=== PATIENT | male | born 1955 | race Caucasian/White ===

== ENCOUNTER 2016-05-01 19:17 | Observation (INO) | payer MEDICARE, MEDICAID ==
[~2016-05-01] VITALS: Ht 165.1 cm; Wt 101.6 kg
--- OUTSIDE RECORDS SUMMARY | 2016-05-01 19:21 | XMS REPORT | Continuity of Care Document ---
Author Author [facility] Organization [facility] Address Unknown Phone Unavailable Allergies Medications Problems [...] CHERRIE CROOKS MD Ot I10 05/28/2015 CHERRIE COROKS MD Ot R55 04/28/2016 CHERRIE CROOKS MD Ot E11.9 TYPE 2 DIABETES MELLITUS WITHOUT COMPLIC 04/28/2016 CHERRIE CROOKS MD Ot E66.9 OBESITY, UNSPECIFIED 04/28/2016 CHERRIE CROOKS MD Ot I10 ESSENTIAL (PRIMARY) HYPERTENSION 04/28/2016 CHERRIE CROOKS MD Ot R55 SYNCOPE AND COLLAPSE Procedures Results Encounters ACCT No. Visit Date/Time Discharge Status Pt. Type Provider Facility Loc./Unit Complaint [id number] 04/29/2016 07:50:00 ACT Outpatient THOMAS CROSS [facility] ONC [id number] 04/23/2015 10:17:00 ACT Outpatient CHERRIE CROOKS MD [facility] CARD SYNCOPE,HTN
--- NOTE | 2016-05-01 19:40 | ED General ---
General Stated Complaint: STOMACH PAIN;FEVER Source of Information: Patient (MOST INFORMATION IS FROM , PT IS DEAF, BUT CAN READ LIPS. ), Spouse Exam Limitations: Other (PT IS DEAF) History of Present Illness Time Seen by Provider: 19:24 Initial Comments PT ARRIVES VIA POV FROM HOME STATES THAT PT TOLD HER JUST PRIOR TO ARRIVAL THAT HE WAS HAVING LUQ PAIN, WAS ALSO NOTED TO HAVE FEVER OF 100.2 AT THAT TIME STATES HE LOOKS VERY PALE PT HAS HAD SIGNIFICANT ANEMIA OVER THE LAST MONTH AND HAS HAD 6 TRANSFUSIONS IN THE LAST MONTH. HAS BEEN TOLD THAT HIS SPLEEN IS VERY ENLARGED. WAS ADMITTED AT [place] IN THE LAST MONTH, HAD TRANSFUSIONS AND REFERRED TO DR. CROSS. COLONOSCOPY REPORTEDLY NEGATIVE. PT HAD A TRANSFUSION ON 04/28 --HGB 5.9, WBC 2.6, PLT 119,000 PRIOR TO TRANSFUSION ON 04/28/16, AND TRANSFUSED AGAIN ON 04/29 AND HAD A BONE MARROW BIOPSY DONE ON 04/29--RIGHT ILIAC CREST BY DR. CROSS. PATH REPORT REVIEWED AND DID NOT SHOW ANY ABNORMAL CELLS. NO NAUSEA/VOMITING NO CHEST PAIN OR SHORTNESS OF BREATH NO COUGH PCP: SIMONE, NESSA [place] HEMATOLOGY: DR. CROSS Allergies and Home Medications Allergies Coded Allergies: No Known Drug Allergies (Unverified , 05/01/16) Constitutional: see HPI fever EENTM: no symptoms reported Respiratory: no symptoms reported Cardiovascular: no symptoms reported Gastrointestinal: LUQ see HPI abdominal painNo loss of appetite, melenaNo nausea, No vomiting Genitourinary: no symptoms reported Musculoskeletal: no symptoms reported Skin: no symptoms reported Psychiatric/Neurological: No Symptoms Reported Hematologic/Lymphatic: See HPI Immunological/Allergic: no symptoms reported Past Psfumnh-Thtnyy-Atarqx Hx Patient Social History Alcohol Use: Denies Use Recreational Drug Use: No Smoking Status: Never a Smoker Recent Foreign Travel: No Contact w/Someone Who Travel: No Surgeries HX Surgeries: Yes (BONE MARROW BIOPSY 04/29/16; INGROWN TOENAIL REMOVALS; LITHOTRIPSY AND KIDNEY STONE REMOVAL; COLONOSCOPY 03/2016 AT [place]/DR. WHITNEY ) Surgeries: Gallbladder, Renal Respiratory Hx Respiratory Disorders: No Cardiovascular Hx Cardiac Disorders: Yes (NORMAL STRESS ECHO 04/2015) Cardiac Disorders: Hypertension Neurological Hx Neurological Disorders: No Genitourinary Hx Genitourinary Disorders: Yes Genitourinary Disorders: Kidney Stones Gastrointestinal Hx Gastrointestinal Disorders: No Musculoskeletal Hx Musculoskeletal Disorders: No Endocrine Hx Endocrine Disorders: Yes Endocrine Disorders: Hypothyroidsim, Diabetes, Non-Insulin dep HEENT HX ENT Disorders: Yes Hearing Impairment: Deaf Cancer Hx Cancer: No Psychosocial Hx Psychiatric Problems: No Integumentary HX Skin/Integumentary Disorder: No Blood Transfusions Hx Blood Disorders: Yes (ANEMIA) Family Medical History Significant Family History: Cancer (MOM WITH PANCREATIC CANCER) Physical Exam Vital Signs Vital Sign - Last 12Hours 05/01/16 19:38 Temp 98.6 Pulse 116 Resp 18 B/P 136/69 Pulse Ox 96 O2 Delivery Room Air Capillary Refill : General Appearance: No Apparent Distress WD/WN Obese HEENT: PERRL/EOMI Pale Conjunctivae (L) Pale Conjunctivae (R) Other (POOR DENTITION AND POOR ORAL HYGIENE) Neck: Full Range of Motion Normal Inspection Non Tender Supple Respiratory: Normal Breath Sounds No Accessory Muscle Use No Respiratory Distress Cardiovascular: Regular Rate, Rhythm No Edema No JVD No Murmur Normal Peripheral Pulses Gastrointestinal: Normal Bowel Sounds No Pulsatile Mass Soft Tenderness (LUQ. 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 Norm as Tested Skin: Warm/Dry Pallor Lymphatic: No Adenopathy Progress/Results/Core Measures Results/Orders Lab Results Laboratory Tests Test 05/01/16 19:38 Range/Units Activated Partial Thromboplast Time 33 24-35 SEC Alanine Aminotransferase (ALT/SGPT) 19 0-55 U/L Albumin 3.2 3.2-4.5 G/DL Alkaline Phosphatase 79 40-136 U/L Amylase Level 46 25-125 U/L Anion Gap 9 5-14 MMOL/L Aspartate Amino Transf (AST/SGOT) 27 5-34 U/L BUN/Creatinine Ratio 31 Basophils # (Auto) 0.0 0.0-0.1 10^3/uL Basophils (%) (Auto) 1 0-10 % Blood Urea Nitrogen 30 H 7-18 MG/DL Calcium Level 8.1 L 8.5-10.1 MG/DL Carbon Dioxide Level 21 21-32 MMOL/L Chloride Level 112 H 98-107 MMOL/L Creatinine 0.97 0.60-1.30 MG/DL Eosinophils # (Auto) 0.1 0.0-0.3 10^3/uL Eosinophils (%) (Auto) 3 0-10 % Estimat Glomerular Filtration Rate > 60 Glucose Level 127 H 70-105 MG/DL Hematocrit 22 L 40-54 % Hemoglobin 6.9 *L 13.3-17.7 G/DL INR Comment 1.2 0.8-1.4 Lactic Acid Level 1.3 0.5-2.0 MMOL/L Lipase 48 8-78 U/L Lymphocytes # (Auto) 0.7 L 1.0-4.0 X 10^3 Lymphocytes (%) (Auto) 24 12-44 % Mean Corpuscular Hemoglobin 28 25-34 PG Mean Corpuscular Hemoglobin Concent 31 L 32-36 G/DL Mean Corpuscular Volume 90 80-99 FL Mean Platelet Volume 9.9 7.4-10.4 FL Monocytes # (Auto) 0.2 0.0-1.0 X 10^3 Monocytes (%) (Auto) 8 0-12 % Neutrophils # (Auto) 1.8 1.8-7.8 X 10^3 Neutrophils (%) (Auto) 64 42-75 % Platelet Count 112 L 130-400 10^3/uL Potassium Level 4.5 3.6-5.0 MMOL/L Prothrombin Time 14.6 12.2-14.7 SEC Red Blood Count 2.44 L 4.35-5.85 10^6/uL Red Cell Distribution Width 15.1 H 10.0-14.5 % Sodium Level 142 135-145 MMOL/L Total Bilirubin 0.4 0.1-1.0 MG/DL Total Protein 6.5 6.4-8.2 G/DL Troponin I < 0.30 <0.30 NG/ML White Blood Count 2.8 L 4.3-11.0 10^3/uL Micro Results Microbiology 05/01/16 Influenza Types A,B Antigen (MARIEL) - Final, Complete My Orders Orders-BERLINSHERWIN YuenA K DO Saline Lock/Iv-Start (05/01/16 19:32) Monitor-Rhythm Ecg Trace Only (05/01/16 19:32) Amylase (05/01/16 19:32) Cbc With Automated Diff (05/01/16 19:32) Comprehensive Metabolic Panel (05/01/16 19:32) Lactic Acid Analyzer (05/01/16 19:32) Lipase (05/01/16 19:32) Protime With Inr (05/01/16 19:32) Partial Thromboplastin Time (05/01/16 19:32) Troponin I (05/01/16 19:32) Ua Culture If Indicated (05/01/16 19:32) Type And Screen (05/01/16 19:32) Blood Culture (05/01/16 19:32) Ct Angio Chst/Abd/Pelv W (05/01/16 20:27) Iohexol Injection (Omnipaque 350 Mg/Ml 1 (05/01/16 20:30) Ns (Ivpb) (Sodium Chloride 0.9% Ivpb Bag (05/01/16 20:30) Red Cells Leukocytes Reduced (05/01/16 20:57) Influenza A And B Antigens (05/01/16 21:40) Ceftriaxone Injection (Rocephin Injectio (05/01/16 21:45) Medications Given in ED Current Medications Medications Dose Ordered Sig/Steve Route Start Time Stop Time Status Last Admin Dose Admin Ceftriaxone Sodium/Sodium Chloride 50 ml @ 100 mls/hr ONCE ONCE IV 05/01/16 21:45 05/01/16 22:14 DC 05/01/16 21:55 100 MLS/HR Iohexol 150 ml ONCE ONCE IV 05/01/16 20:30 05/01/16 20:31 DC 05/01/16 20:50 125 ML Sodium Chloride 100 ml 100 ml ONCE ONCE IV 05/01/16 20:30 05/01/16 20:31 DC 05/01/16 20:50 80 ML Vital Signs/I&O Vital Sign - Last 12Hours 05/01/16 05/01/16 19:38 22:22 Temp 98.6 98.6 Pulse 116 106 Resp 18 18 B/P 136/69 Pulse Ox 96 96 O2 Delivery Room Air Progress Note : Progress Note NO DETERIORATION IN PTS' CONDITION DURING ER STAY Diagnostic Imaging Comments CT ANGIO CHEST/ ABDOMEN/ PELVIS--SPLENOMEGALY, FEW PROMINENT CELIAC NODES, FEW NON-SPECIFIC LESIONS IN LIVER. NO ACUTE INFLAMMATORY PROCESS OR INFARCTS---PER RADIOLOGIST REPORT AT 2126 Reviewed: Reviewed by Me Departure Communication Progress Notes 1930--SPOKE WITH DR. CROSS, ACCEPTS PT FOR ADMIT. ORDERS NOTED Impression Impression: Primary Impression: Pancytopenia Additional Impressions: LUQ pain Fever Melena CELIAC LYMPHADENOPATHY Splenomegaly NON-SPECIFIC LIVER LESIONS ON CT Disposition: ADMITTED INPATIENT Condition: Stable Decision to Admit Reason: Admit from ER (General) Decision to Admit/Date: May 01, 2016 Time/Decision to Admit Time: 19:30 Departure-Patient Inst. Referrals: [facility] (PCP) Primary Care Physician JESUS SLADE DO May 01, 2016 7:40 pm
[2016-05-01 19:50] LABS: BASOPHILS % (AUTO) 1 % (0-10); EOSINOPHILS # (AUTO) 0.1 10^3/uL (0.0-0.3); EOSINOPHILS % (AUTO) 3 % (0-10); LYMPHOCYTES # (AUTO) 0.7 X 10^3 (1.0-4.0); LYMPHOCYTES % (AUTO) 24 % (12-44); MEAN CORPUSCULAR HEMOGLOBIN 28 PG (25-34); MEAN CORPUSCULAR HGB CONC 31 G/DL (32-36); MEAN CORPUSCULAR VOLUME 90 FL (80-99); MEAN PLATELET VOLUME 9.9 FL (7.4-10.4); MONOCYTES # (AUTO) 0.2 X 10^3 (0.0-1.0); MONOCYTES % (AUTO) 8 % (0-12); NEUTROPHILS # (AUTO) 1.8 X 10^3 (1.8-7.8); NEUTROPHILS % (AUTO) 64 % (42-75); PLATELET COUNT 112 10^3/uL (130-400); RED BLOOD COUNT 2.44 10^6/uL (4.35-5.85); RED CELL DISTRIBUTION WIDTH 15.1 % (10.0-14.5); WHITE BLOOD COUNT 2.8 10^3/uL (4.3-11.0)
[2016-05-01 20:00] LABS: INR 1.2 (0.8-1.4); PROTHROMBIN TIME PATIENT 14.6 SEC (12.2-14.7)
[2016-05-01 20:11] LABS: ALANINE AMINOTRANSFERASE 19 U/L (0-55); ALBUMIN 3.2 G/DL (3.2-4.5); AMYLASE 46 U/L (25-125); ANION GAP 9 MMOL/L (5-14); ASPARTATE AMINO TRANSFERASE 27 U/L (5-34); BILIRUBIN,TOTAL 0.4 MG/DL (0.1-1.0); BLOOD UREA NITROGEN 30 MG/DL (7-18); BUN/CREATININE RATIO 31; CALCIUM 8.1 MG/DL (8.5-10.1); CARBON DIOXIDE 21 MMOL/L (21-32); CHLORIDE 112 MMOL/L (98-107); CREATININE SERUM 0.97 MG/DL (0.60-1.30); GFR ESTIMATED > 60; GLUCOSE 127 MG/DL (70-105); LIPASE 48 U/L (8-78); POTASSIUM 4.5 MMOL/L (3.6-5.0); SODIUM 142 MMOL/L (135-145); TOTAL PROTEIN 6.5 G/DL (6.4-8.2)
[2016-05-01 20:12] LABS: TROPONIN I < 0.30 NG/ML (<0.30)
[2016-05-01] MEDS ORDERED: IOHEXOL 350 MG/ML 150 ML (OMNIPAQUE 350) VIAL IV ONE (20:30)
[2016-05-01] MEDS ORDERED: NS 100 ML (IVPB) BAG IV ONE (20:30)
--- NOTE | 2016-05-01 21:22 | Diagnostic Imaging Report ---
PROCEDURE: CT angiography of the chest with contrast and CT abdomen and pelvis with contrast. TECHNIQUE: Multiple contiguous axial images were obtained through the chest, abdomen and pelvis after administration of intravenous contrast. Reconstructed MIP CT angiography acquisitions of the aorta were then performed. INDICATION: Fever, anemia, history of renal calculi. COMPARISON: None. FINDINGS: CT chest: Cardiac enlargement with coronary artery disease is present. There is no pericardial effusion. No lymphadenopathy is seen. Pulmonary arteries and aorta are unremarkable. No dissection or pulmonary embolism is identified. The lungs are clear throughout. There is no infiltrate, effusion or pneumothorax. There is a small hiatal hernia. Visualized osseous structures are age-appropriate. IMPRESSION: 1. No pulmonary embolism or aortic pathology. 2. No focal infiltrate. 3. Small hiatal hernia. 4. Cardiac enlargement with coronary artery disease. CT abdomen and pelvis: A few prominent celiac lymph nodes are present. There is moderate splenomegaly. No splenic rupture or infarction is seen. There is a single low-density lesion in the superior aspect of the right hepatic lobe, measuring 12 mm. The exact etiology is uncertain. Consider MRI for further evaluation. There is no abscess. Portal venous system and arterial structures are grossly normal. No vascular occlusion or stenosis is seen. There is no solid organ or bowel ischemia. No additional areas of lymphadenopathy are identified. There is some distention of the urinary bladder. Nonobstructive renal calculi are seen, bilaterally. There is no hydronephrosis. No inflammation is seen. Osseous structures are normal. There is no fracture, osteomyelitis or soft tissue abscess. IMPRESSION: 1. Prominent celiac nodes, possibly neoplastic. 2. Low-density liver lesions in the superior right hepatic lobe. Recommend MRI for further evaluation. 3. No abdominal or pelvic abscess or inflammatory process is identified. 4. Nonobstructive renal calculi. 5. Splenomegaly. Dictated by: Dictated on workstation # [id number]
[2016-05-01] MEDS ORDERED: cefTRIAXone INJECTION 1,000 MG in NS (IVPB) 50 ML IV ONE (21:45)
[2016-05-01 22:50] LABS: BILIRUBIN,URINE NEGATIVE (NEGATIVE); KETONES,URINE NEGATIVE (NEGATIVE); LEUKOCYTE ESTERASE ,URINE NEGATIVE (NEGATIVE); NITRITE,URINE NEGATIVE (NEGATIVE); PH,URINE 5 (5-9); PROTEIN,URINE 1+ (NEGATIVE); UROBILINOGEN,URINE 1 MG/DL (NORMAL)
[2016-05-01 23:07] LABS: SQUAMOUS EPITHELIAL CELL,UR 0-2 /HPF; WBC,URINE 0-2 /HPF
[2016-05-02] VITALS (8 sets, daily range): BP systolic 118–129; BP diastolic 60–79
[2016-05-02] MEDS ORDERED: NS IV 1000 ML 1,000 ML ONE (00:36)
[2016-05-02] MEDS ORDERED: NS (IVPB) 250 ML ONE (01:29)
[2016-05-02] MEDS ORDERED: CATHETER FLUSH 10 ML SYR IV PRN (07:15)
[2016-05-02] MEDS ORDERED: NS IV 1000 ML 1,000 ML IV SCH (07:15)
[2016-05-02] MEDS ORDERED: ACETAMINOPHEN 500 MG TAB (TYLENOL) PO PRN (07:15)
[2016-05-02] MEDS ORDERED: GLIM1TAB PO (08:36)
[2016-05-02] MEDS ORDERED: METF500T8 PO (08:36)
[2016-05-02] MEDS ORDERED: LISI-556 PO (08:36)
[2016-05-02] MEDS ORDERED: DICL75TA2 PO (08:36)
[2016-05-02] MEDS ORDERED: LEVO75TA6 PO (08:36)
[2016-05-02] MEDS ORDERED: PREG50CA2 PO (08:36)
[2016-05-02] MEDS ORDERED: cefTRIAXone 1 GM/NS 50 ML IVPB IV SCH ×4 (09:00→21:00)
[2016-05-02] MEDS ORDERED: FLU TRIvalent (5 YOA+) 2016-17 (AFLURIA) 0.5 ML IM ONE (09:45)
[2016-05-02 10:03] LABS: BASOPHILS % (AUTO) 0 % (0-10); EOSINOPHILS # (AUTO) 0.1 10^3/uL (0.0-0.3); EOSINOPHILS % (AUTO) 4 % (0-10); LYMPHOCYTES # (AUTO) 0.5 X 10^3 (1.0-4.0); LYMPHOCYTES % (AUTO) 17 % (12-44); MEAN CORPUSCULAR HEMOGLOBIN 29 PG (25-34); MEAN CORPUSCULAR HGB CONC 33 G/DL (32-36); MEAN CORPUSCULAR VOLUME 88 FL (80-99); MEAN PLATELET VOLUME 9.5 FL (7.4-10.4); MONOCYTES # (AUTO) 0.2 X 10^3 (0.0-1.0); MONOCYTES % (AUTO) 7 % (0-12); NEUTROPHILS % (AUTO) 72 % (42-75); PLATELET COUNT 120 10^3/uL (130-400); RED BLOOD COUNT 2.89 10^6/uL (4.35-5.85); RED CELL DISTRIBUTION WIDTH 15.7 % (10.0-14.5); WHITE BLOOD COUNT 2.7 10^3/uL (4.3-11.0)
[2016-05-02 10:17] LABS: ALANINE AMINOTRANSFERASE 23 U/L (0-55); ALBUMIN 3.4 G/DL (3.2-4.5); ANION GAP 7 MMOL/L (5-14); ASPARTATE AMINO TRANSFERASE 27 U/L (5-34); BILIRUBIN,TOTAL 1.2 MG/DL (0.1-1.0); BLOOD UREA NITROGEN 25 MG/DL (7-18); BUN/CREATININE RATIO 29; CALCIUM 8.3 MG/DL (8.5-10.1); CARBON DIOXIDE 21 MMOL/L (21-32); CHLORIDE 111 MMOL/L (98-107); CREATININE SERUM 0.86 MG/DL (0.60-1.30); GFR ESTIMATED > 60; GLUCOSE 119 MG/DL (70-105); POTASSIUM 4.3 MMOL/L (3.6-5.0); SODIUM 139 MMOL/L (135-145); TOTAL PROTEIN 6.8 G/DL (6.4-8.2)
--- NOTE | 2016-05-02 10:50 | Discharge Inst-Simple/Standard ---
Discharge Inst-Standard Discharge Medications New, Converted or Re-Newed RX: Other Patient Instructions/Follow Up Plan of Care/Instructions/FU: Labwork on 05/06/2016 at the cancer center as scheduled. F/u appointment on 05/13/2016 at the cancer center as scheduled. Dr. Castro's office will contact with instructions for capsule endoscopy. Activity as Tolerated: Yes Discharge Diet: ADA Diet Return to The Hospital For: Bleeding, SOB, Chest pain. THOMAS CROSS May 02, 2016 10:50
== END 2016-05-02 10:44 | disposition home or self-care (01) ==
LOC: EDUNIT# 19:17 → ER 19:18 → 4TH 22:12 → UNDOADMOB 22:12 → 4TH 23:00 → UNDODISOB 05-02 11:51
PROVIDERS: ADMIT Internal Medicine Hematology & Oncology; ATTEND Internal Medicine Hematology & Oncology
DX: D61.818 Other pancytopenia (principal); R16.1 Splenomegaly, not elsewhere classified; K92.1 Melena; R59.1 Generalized enlarged lymph nodes; K76.9 Liver disease, unspecified; I10 Essential (primary) hypertension; N20.0 Calculus of kidney; E03.9 Hypothyroidism, unspecified; E11.9 Type 2 diabetes mellitus without complications; H91.3 Deaf nonspeaking, not elsewhere classified
CPT/HCPCS: 36415; 71275; 74174; 80053; 81000; 82150; 83605; 83690; 84484; 85025; 85610; 85730; 86850; 86900; 86901; 86920; 87040; 87804; 93041; 96365; G0378

== ENCOUNTER → 2016-05-08 | Outpatient (CLI) | payer MEDICARE, MEDICAID ==
[~2016-05-08] MED LIST: DICL75TA2 PO; GLIM1TAB PO; LEVO75TA6 PO; LISI-556 PO; METF500T8 PO; PREG50CA2 PO
--- OUTSIDE RECORDS SUMMARY | 2016-05-08 10:02 | XMS REPORT | Continuity of Care Document ---
Author Author [facility] Organization [facility] Address Unknown Phone Unavailable Allergies Active Description Code Type Severity Reaction Onset Reported/Identified Relationship to Patient Clinical Status Yes No Known Drug Allergies [id number] Drug Allergy Unknown N/ A 05/01/2016 Medications Problems Date Dx Coded Attending Type [...] I10 05/28/2015 CHERRIE CROOKS MD Ot R55 04/28/2016 CHERRIE CROOKS MD Ot E11.9 TYPE 2 DIABETES MELLITUS WITHOUT COMPLIC 04/28/2016 CHERRIE CROOKS MD Ot E66.9 OBESITY, UNSPECIFIED 04/28/2016 CHERRIE CROOKS MD Ot I10 ESSENTIAL (PRIMARY) HYPERTENSION 04/28/2016 CHERRIE CROOKS MD Ot R55 SYNCOPE AND COLLAPSE 05/02/2016 THOMAS CROSS Ot D61.818 OTHER PANCYTOPENIA 05/02/2016 THOMAS CROSS Ot E03.9 HYPOTHYROIDISM, UNSPECIFIED 05/02/2016 THOMAS CROSS Ot E11.9 TYPE 2 DIABETES MELLITUS WITHOUT COMPLIC 05/02/2016 THOMAS CROSS Ot H91.3 DEAF NONSPEAKING, NOT ELSEWHERE CLASSIFI 05/02/2016 THOMAS CROSS Ot I10 ESSENTIAL (PRIMARY) HYPERTENSION 05/02/2016 THOMAS CROSS Ot K76.9 LIVER DISEASE, UNSPECIFIED 05/02/2016 THOMAS CROSS Ot K92.1 MELENA 05/02/2016 THOMAS CROSS Ot N20.0 CALCULUS OF KIDNEY 05/02/2016 THOMAS CROSS Ot R16.1 SPLENOMEGALY, NOT ELSEWHERE CLASSIFIED 05/02/2016 THOMAS CROSS Ot R59.1 GENERALIZED ENLARGED LYMPH NODES Procedures Results Test Result Range Complete blood count (CBC) with automated white blood cell (WBC) differential - 05/01/16 19:38 Blood leukocytes automated count (number/volume) 2.8 10*3/ uL 4.3-11.0 Blood erythrocytes automated count (number/volume) 2.44 10*6 /uL 4.35-5.85 Venous blood hemoglobin measurement (mass/volume) 6.9 g/dL 13.3-17.7 Blood hematocrit (volume fraction) 22 % 40-54 Automated erythrocyte mean corpuscular volume 90 [foz_us] 80-99 Automated erythrocyte mean corpuscular hemoglobin (mass per erythrocyte) 28 pg 25-34 Automated erythrocyte mean corpuscular hemoglobin concentration measurement ( mass/volume) 31 g/dL 32-36 Automated erythrocyte distribution width ratio 15.1 % 10.0-14.5 Automated blood platelet count (count/volume) 112 10*3/uL 130-400 Automated blood platelet mean volume measurement 9.9 [foz_us ] 7.4-10.4 Automated blood neutrophils/100 leukocytes 64 % 42-75 Automated blood lymphocytes/100 leukocytes 24 % 12-44 Blood monocytes/100 leukocytes 8 % 0-12 Automated blood eosinophils/100 leukocytes 3 % 0-10 Automated blood basophils/100 leukocytes 1 % 0-10 Blood neutrophils automated count (number/volume) 1.8 10*3 1.8-7.8 Blood lymphocytes automated count (number/volume) 0.7 10*3 1.0-4.0 Blood monocytes automated count (number/volume) 0.2 10*3 0.0-1.0 Automated eosinophil count 0.1 10*3/uL 0.0-0.3 Automated blood basophil count (count/volume) 0.0 10*3/uL 0.0-0.1 Blood lactic acid measurement (moles/volume) - 05/01/16 19:38 Blood lactic acid measurement (moles/volume) 1.3 mmol/L 0.5-2.0 PT panel in platelet poor plasma by coagulation assay - 05/01/16 19:38 Prothrombin time (PT) in platelet poor plasma by coagulation assay 14.6 s 12.2-14.7 INR in platelet poor plasma or blood by coagulation assay 1.2 0.8-1.4 Activated partial thromboplastin time (aPTT) in platelet poor plasma bycoagulation assay - 05/01/16 19:38 Activated partial thromboplastin time (aPTT) in platelet poor plasma bycoagulation assay 33 s 24-35 Comprehensive metabolic panel - 05/01/16 19:38 Serum or plasma sodium measurement (moles/volume) 142 mmol/ L 135-145 Serum or plasma potassium measurement (moles/volume) 4.5 mmol/L 3.6-5.0 Serum or plasma chloride measurement (moles/volume) 112 mmol /L 98-107 Carbon dioxide 21 mmol/L 21-32 Serum or plasma anion gap determination (moles/volume) 9 mmol/L 5-14 Serum or plasma urea nitrogen measurement (mass/volume) 30 mg/dL 7-18 Serum or plasma creatinine measurement (mass/volume) 0.97 mg /dL 0.60-1.30 Serum or plasma urea nitrogen/creatinine mass ratio 31 NRG Serum or plasma creatinine measurement with calculation of estimated glomerular filtration rate > NRG Serum or plasma glucose measurement (mass/volume) 127 mg/dL 70-105 Serum or plasma calcium measurement (mass/volume) 8.1 mg/dL 8.5-10.1 Serum or plasma total bilirubin measurement (mass/volume) 0.4 mg/dL 0.1-1.0 Serum or plasma alkaline phosphatase measurement (enzymatic activity/volume) 79 U/L 40-136 Serum or plasma aspartate aminotransferase measurement (enzymatic activity/ volume) 27 U/L 5-34 Serum or plasma alanine aminotransferase measurement (enzymatic activity/volume ) 19 U/L 0-55 Serum or plasma protein measurement (mass/volume) 6.5 g/dL 6.4-8.2 Serum or plasma albumin measurement (mass/volume) 3.2 g/dL 3.2-4.5 Serum or plasma troponin i.cardiac measurement (mass/volume) - 05/01/16 19:38 Serum or plasma troponin i.cardiac measurement (mass/volume) < ng/mL <0.30 Serum or plasma amylase measurement (enzymatic activity/volume) - 05/01/16 19: 38 Serum or plasma amylase measurement (enzymatic activity/volume) 46 U/L 25-125 Lipase - 05/01/16 19:38 Lipase 48 U/L 8-78 RED CELLS LEUKO REDUCED AS1 - 05/01/16 19:38 RED CELLS LEUKO REDUCED AS1 TRANSFUSED 0501 NRG Blood type T Indirect antibody screen panel - 05/01/16 19:38 ABO+Rh group AP NRG Transfusion band number [id number] NRG Blood group antibody screen NEGATIVE NRG Bacterial blood culture - 05/01/16 19:38 Bacterial blood culture NG NRG Bacterial blood culture - 05/01/16 19:56 Bacterial blood culture NG NRG Influenza virus A and B antigen detection - 05/01/16 21:51 FLU RESULT NEGATIVE FOR INFLUENZA A AND B ANTIGENS BY IA NRG Complete urinalysis with reflex to culture - 05/01/16 22:39 Urine color determination YELLOW NRG Urine clarity determination CLEAR NRG Urine pH measurement by test strip 5 5- 9 Specific gravity of urine by test strip 1.010 1.016-1.022 Urine protein assay by test strip, semi-quantitative 1+ NEGATIVE Urine glucose detection by automated test strip NEGATIVE NEGATIVE Erythrocytes detection in urine sediment by light microscopy 3+ NEGATIVE Urine ketones detection by automated test strip NEGATIVE NEGATIVE Urine nitrite detection by test strip NEGATIVE NEGATIVE Urine total bilirubin detection by test strip NEGATIVE NEGATIVE Urine urobilinogen measurement by automated test strip (mass/volume) 1 mg/dL NORMAL Urine leukocyte esterase detection by dipstick NEGATIVE NEGATIVE Automated urine sediment erythrocyte count by microscopy (number/high power field) [HPF] NRG Automated urine sediment leukocyte count by microscopy (number/high power field ) [HPF] NRG Bacteria detection in urine sediment by light microscopy NEGATIVE NRG Squamous epithelial cells detection in urine sediment by light microscopy 0-2 NRG Crystals detection in urine sediment by light microscopy NONE NRG Casts detection in urine sediment by light microscopy NONE NRG Mucus detection in urine sediment by light microscopy NEGATIVE NRG Complete urinalysis with reflex to culture NO NRG Complete blood count (CBC) with automated white blood cell (WBC) differential - 05/02/16 09:52 Blood leukocytes automated count (number/volume) 2.7 10*3/ uL 4.3-11.0 Blood erythrocytes automated count (number/volume) 2.89 10*6 /uL 4.35-5.85 Venous blood hemoglobin measurement (mass/volume) 8.3 g/dL 13.3-17.7 Blood hematocrit (volume fraction) 26 % 40-54 Automated erythrocyte mean corpuscular volume 88 [foz_us] 80-99 Automated erythrocyte mean corpuscular hemoglobin (mass per erythrocyte) 29 pg 25-34 Automated erythrocyte mean corpuscular hemoglobin concentration measurement ( mass/volume) 33 g/dL 32-36 Automated erythrocyte distribution width ratio 15.7 % 10.0-14.5 Automated blood platelet count (count/volume) 120 10*3/uL 130-400 Automated blood platelet mean volume measurement 9.5 [foz_us ] 7.4-10.4 Automated blood neutrophils/100 leukocytes 72 % 42-75 Automated blood lymphocytes/100 leukocytes 17 % 12-44 Blood monocytes/100 leukocytes 7 % 0-12 Automated blood eosinophils/100 leukocytes 4 % 0-10 Automated blood basophils/100 leukocytes 0 % 0-10 Blood neutrophils automated count (number/volume) 2.0 10*3 1.8-7.8 Blood lymphocytes automated count (number/volume) 0.5 10*3 1.0-4.0 Blood monocytes automated count (number/volume) 0.2 10*3 0.0-1.0 Automated eosinophil count 0.1 10*3/uL 0.0-0.3 Automated blood basophil count (count/volume) 0.0 10*3/uL 0.0-0.1 Comprehensive metabolic panel - 05/02/16 09:52 Serum or plasma sodium measurement (moles/volume) 139 mmol/ L 135-145 Serum or plasma potassium measurement (moles/volume) 4.3 mmol/L 3.6-5.0 Serum or plasma chloride measurement (moles/volume) 111 mmol /L 98-107 Carbon dioxide 21 mmol/L 21-32 Serum or plasma anion gap determination (moles/volume) 7 mmol/L 5-14 Serum or plasma urea nitrogen measurement (mass/volume) 25 mg/dL 7-18 Serum or plasma creatinine measurement (mass/volume) 0.86 mg /dL 0.60-1.30 Serum or plasma urea nitrogen/creatinine mass ratio 29 NRG Serum or plasma creatinine measurement with calculation of estimated glomerular filtration rate > NRG Serum or plasma glucose measurement (mass/volume) 119 mg/dL 70-105 Serum or plasma calcium measurement (mass/volume) 8.3 mg/dL 8.5-10.1 Serum or plasma total bilirubin measurement (mass/volume) 1.2 mg/dL 0.1-1.0 Serum or plasma alkaline phosphatase measurement (enzymatic activity/volume) 81 U/L 40-136 Serum or plasma aspartate aminotransferase measurement (enzymatic activity/ volume) 27 U/L 5-34 Serum or plasma alanine aminotransferase measurement (enzymatic activity/volume ) 23 U/L 0-55 Serum or plasma protein measurement (mass/volume) 6.8 g/dL 6.4-8.2 Serum or plasma albumin measurement (mass/volume) 3.4 g/dL 3.2-4.5 Encounters ACCT No. Visit Date/Time Discharge Status Pt. Type Provider Facility Loc./Unit Complaint [id number] 05/01/2016 22:12:00 2016 11:51:00 DIS Outpatient THOMAS CROSS [facility] 4TH PACYTOPENIA,SPLENOMEGALY WITH LUQ PAIN, MELENA [id number] 05/06/2016 07:42:00 ACT Outpatient THOMAS CROSS [facility] ONC [id number] 04/23/2015 10:17:00 ACT Outpatient VALERIY ROSENTHAL, CHERRIE Johnson [facility] CARD SYNCOPE,HTN
== END ==
LOC: PREOP 09:59
PROVIDERS: ATTEND Surgery
DX: Z01.818 Encounter for other preprocedural examination (principal); D50.0 Iron deficiency anemia secondary to blood loss (chronic)

== ENCOUNTER → 2016-05-13 | Day surgery (SDC) | payer MEDICARE, MEDICAID ==
--- OUTSIDE RECORDS SUMMARY | 2016-05-12 07:18 | XMS REPORT | Continuity of Care Document ---
Author Author [facility] Organization [facility] Address Unknown Phone Unavailable Allergies Active Description Code Type Severity Reaction Onset Reported/Identified Relationship to Patient Clinical Status Yes No Known Drug Allergies [id number] Drug Allergy Unknown N/ A 05/01/2016 Medications Problems Date Dx Coded Attending Type Code Diagnosis Diagnosed By 05/16/2015 CHERRIE CROOKS MD Ot E11.9 05/16/2015 CHERRIE CROOKS MD Ot E66.9 05/16/2015 CHERRIE CROOKS MD Ot I10 05/16/2015 CHERREI CROOKS MD Ot R55 05/28/2015 CHERRIE CROOKS [...] CROSS Ot R59.1 GENERALIZED ENLARGED LYMPH NODES 05/09/2016 NAKUL ROSENTHAL, ARTEMIO Larios Ot D50.0 IRON DEFICIENCY ANEMIA SECONDARY TO BLOO 05/09/2016 NAKUL ROSENTHAL, ARTEMIO Larios Ot Z01.818 ENCOUNTER FOR OTHER PREPROCEDURAL EXAMIN Procedures Results Test Result Range Complete blood [...] ABO+Rh group AP NRG Transfusion band number [id number] NRG Blood group antibody screen NEGATIVE NRG [...] Status Pt. Type Provider Facility Loc./Unit Complaint [id number] 05/01/2016 22:12:00 2016 11:51:00 DIS Outpatient THOMAS CROSS [facility] 4TH PACYTOPENIA,SPLENOMEGALY WITH LUQ PAIN, MELENA [id number] 05/12/2016 07:12:00 ACT Outpatient ARTEMIO MOTA MD [facility] ENDO IRON DEF. ANEMIA [id number] 05/08/2016 09:59:00 ACT Outpatient ARTEMIO MOTA MD [facility] PREOP IRON DEF. ANEMIA [id number] 05/06/2016 07:42:00 ACT Outpatient THOMAS CROSS [facility] ONC [id number] 04/23/2015 10:17:00 ACT Outpatient CHERRIE CROOKS MD [facility] CARD SYNCOPE,HTN
--- OUTSIDE RECORDS SUMMARY | 2016-05-12 07:18 | XMS REPORT | Continuity of Care Document ---
Author Author [facility] Organization [facility] Address Unknown Phone Unavailable Allergies Active Description Code Type Severity Reaction Onset Reported/Identified Relationship to Patient Clinical Status Yes No Known Drug Allergies [id number] Drug Allergy Unknown N/ A 05/01/2016 Medications [...] ABO+Rh group AP NRG Transfusion band number [id number] NRG Blood group antibody screen NEGATIVE NRG [...] Status Pt. Type Provider Facility Loc./Unit Complaint [id number] 05/01/2016 22:12:00 2016 11:51:00 DIS Outpatient THOMAS CROSS [facility] 4TH PACYTOPENIA,SPLENOMEGALY WITH LUQ PAIN, MELENA [id number] 05/12/2016 07:12:00 ACT Outpatient ARTEMIO MOTA MD [facility] ENDO IRON DEF. ANEMIA [id number] 05/08/2016 09:59:00 ACT Outpatient ARTEMIO MOTA MD [facility] PREOP IRON DEF. ANEMIA [id number] 05/06/2016 07:42:00 ACT Outpatient THOMAS CROSS [facility] ONC [id number] 04/23/2015 10:17:00 ACT Outpatient CHERRIE CROOKS MD [facility] CARD SYNCOPE,HTN
[~2016-05-13] VITALS: Ht 165.1 cm; Wt 99.8 kg
--- OUTSIDE RECORDS SUMMARY | 2016-05-13 07:25 | XMS REPORT | Continuity of Care Document ---
Author Author [facility] Organization [facility] Address Unknown Phone Unavailable Allergies Active Description Code Type Severity Reaction Onset Reported/Identified Relationship to Patient Clinical Status Yes No Known Drug Allergies [id number] Drug Allergy Unknown N/ A 05/01/2016 Medications Problems Date Dx Coded Attending Type Code Diagnosis Diagnosed By 05/16/2015 CHERRIE CROOKS MD Ot E11.9 05/16/2015 CHERRIE CROOKS MD Ot E66.9 05/16/2015 CHERRIE CROOKS MD Ot I10 05/16/2015 CHERRIE CROOKS MD Ot R55 05/28/2015 CHERRIE CROOKS MD Ot E11.9 05/28/2015 CHERRIE CROOKS MD Ot E66.9 05/28/2015 CHERRIE CROOKS MD Ot I10 05/28/2015 CHERREI CROOKS MD Ot R55 05/28/2015 CHERRIE [...] Ot Z01.818 ENCOUNTER FOR OTHER PREPROCEDURAL EXAMIN 05/12/2016 ARTEMIO MOTA MD, Ot D50.0 IRON DEFICIENCY ANEMIA SECONDARY TO BLOO 05/12/2016 NAKUL ROSENTHAL, ARTEMIO Larios Ot Z01.818 ENCOUNTER [...] RED CELLS LEUKO REDUCED AS1 TRANSFUSED 0501 [facility] Blood type T Indirect antibody screen panel - 05/01/16 19:38 ABO+Rh group AP NR Transfusion band number [id number] [facility] Blood group antibody screen NEGATIVE NR Bacterial blood culture - 05/01/16 19:38 Bacterial blood culture NG NRG Bacterial blood culture - 05/01/16 19:56 Bacterial blood culture NG [facility] Influenza virus A and B antigen detection - 05/01/16 21:51 FLU RESULT NEGATIVE FOR INFLUENZA A AND B ANTIGENS BY IA NR Complete urinalysis with reflex to culture - [...] count by microscopy (number/high power field) [HPF] [facility] Automated urine sediment leukocyte count by microscopy [...] Status Pt. Type Provider Facility Loc./Unit Complaint [id number] 05/12/2016 07:00:00 2016 07:00:00 CAN Preadmit ARTEMIO MOTA MD [facility] ENDO IRON DEF. ANEMIA [id number] 05/01/2016 22:12:00 2016 11:51:00 DIS Outpatient THOMAS CROSS [facility] 4TH PACYTOPENIA,SPLENOMEGALY WITH LUQ PAIN, MELENA [id number] 05/08/2016 09:59:00 ACT Outpatient ARTEMIO MOTA MD [facility] PREOP IRON DEF. ANEMIA [id number] 05/06/2016 07:42:00 ACT Outpatient THOMAS CROSS [facility] ONC [id number] 04/23/2015 10:17:00 ACT Outpatient VALERIY ROSENTHAL, CHERRIE Johnson [facility] CARD SYNCOPE,HTN
--- OUTSIDE RECORDS SUMMARY | 2016-05-13 07:26 | XMS REPORT | Continuity of Care Document ---
Author Author [facility] Organization [facility] Address Unknown Phone Unavailable Allergies Active Description Code Type Severity Reaction Onset Reported/Identified Relationship to Patient Clinical Status Yes No Known Drug Allergies [id number] Drug Allergy Unknown N/ A 05/01/2016 Medications [...] RED CELLS LEUKO REDUCED AS1 TRANSFUSED 0501 [facility] Blood type T Indirect antibody screen panel - 05/01/16 19:38 ABO+Rh group AP NR Transfusion band number [id number] [facility] Blood group antibody screen NEGATIVE NR Bacterial blood culture - 05/01/16 19:38 Bacterial blood culture NG NRG Bacterial blood culture - 05/01/16 19:56 Bacterial blood culture NG [facility] Influenza virus A and B antigen detection [...] count by microscopy (number/high power field) [HPF] [facility] Automated urine sediment leukocyte count by microscopy [...] Status Pt. Type Provider Facility Loc./Unit Complaint [id number] 05/12/2016 07:00:00 2016 07:00:00 CAN Preadmit ARTEMIO MOTA MD [facility] ENDO IRON DEF. ANEMIA [id number] 05/01/2016 22:12:00 2016 11:51:00 DIS Outpatient THOMAS CROSS [facility] 4TH PACYTOPENIA,SPLENOMEGALY WITH LUQ PAIN, MELENA [id number] 05/08/2016 09:59:00 ACT Outpatient ARTEMIO MOTA MD [facility] PREOP IRON DEF. ANEMIA [id number] 05/06/2016 07:42:00 ACT Outpatient THOMAS CROSS [facility] ONC [id number] 04/23/2015 10:17:00 ACT Outpatient VALERIY ROSENTHAL, CHERRIE Johnson [facility] CARD SYNCOPE,HTN
[2016-05-14 12:45] VITALS: BP 132/68
== END | disposition home or self-care (01) ==
LOC: ENDO 05-12 07:12
PROVIDERS: ATTEND Surgery
DX: D50.9 Iron deficiency anemia, unspecified (principal)
CPT/HCPCS: 91110

== ENCOUNTER → 2016-05-29 | Outpatient (CLI) | payer MEDICARE, MEDICAID ==
--- OUTSIDE RECORDS SUMMARY | 2016-05-29 05:55 | XMS REPORT | Continuity of Care Document ---
Author Author [facility] Organization [facility] Address Unknown Phone Unavailable Allergies Active Description Code Type Severity Reaction Onset Reported/Identified Relationship to Patient Clinical Status Yes No Known Drug Allergies [id number] Drug Allergy Unknown N/ A 05/01/2016 Medications [...] ABO+Rh group AP NRG Transfusion band number [id number] NRG Blood group antibody screen NEGATIVE NRG [...] Status Pt. Type Provider Facility Loc./Unit Complaint [id number] 05/01/2016 22:12:00 2016 11:51:00 DIS Inpatient THOMAS CROSS [facility] 4TH PACYTOPENIA,SPLENOMEGALY WITH LUQ PAIN, MELENA [id number] 05/29/2016 05:52:00 ACT Outpatient ARTEMIO MOTA MD [facility] PREOP ANEMIA [id number] 05/27/2016 13:45:00 ACT Outpatient RILEY YIP APRN [facility] WOUNDCARE [id number] 05/26/2016 09:16:00 ACT Outpatient THOMAS CROSS [facility] ONC [id number] 05/13/2016 07:22:00 ACT Outpatient ARTEMIO MOTA MD [facility] ENDO IRON DEF. ANEMIA [id number] 05/08/2016 09:59:00 ACT Outpatient ARTEMIO MOTA MD [facility] PREOP IRON DEF. ANEMIA [id number] 04/23/2015 10:17:00 ACT Outpatient CHERRIE CROOKS MD [facility] CARD SYNCOPE,HTN
== END ==
LOC: PREOP 05:52
PROVIDERS: ATTEND Surgery
DX: Z01.818 Encounter for other preprocedural examination (principal); D50.9 Iron deficiency anemia, unspecified; K29.70 Gastritis, unspecified, without bleeding

== ENCOUNTER 2016-06-02 10:29 | Day surgery (SDC) | payer MEDICARE, MEDICAID ==
[~2016-06-02] VITALS: Ht 165.1 cm; Wt 99.8 kg
--- OUTSIDE RECORDS SUMMARY | 2016-06-02 10:33 | XMS REPORT | Continuity of Care Document ---
Author Author [facility] Organization [facility] Address Unknown Phone Unavailable Allergies Active Description Code Type Severity Reaction Onset Reported/Identified Relationship to Patient Clinical Status Yes No Known Drug Allergies [id number] Drug Allergy Unknown N/ A 05/01/2016 Medications Problems Date Dx Coded Attending Type Code Diagnosis Diagnosed By 05/16/2015 CHERREI CROOKS MD Ot E11.9 05/16/2015 CHERRIE CROOKS MD Ot E66.9 05/16/2015 CHERRIE CROOKS MD Ot I10 05/16/2015 CHERRIE CROOKS MD Ot R55 05/28/2015 CHERRIE CROOKS MD Ot E11.9 05/28/2015 CHERRIE CROOKS MD Ot E66.9 05/28/2015 CHERRIE CROOKS MD Ot I10 05/28/2015 CHERRIE CROOKS MD Ot R55 05/28/2015 CHERRIE CROOKS MD Ot E11.9 05/28/2015 CHERRIE COROKS MD Ot E66.9 05/28/2015 CHERRIE CROOKS MD [...] ABO+Rh group AP NRG Transfusion band number [id number] NRG Blood group antibody screen NEGATIVE NRG [...] Status Pt. Type Provider Facility Loc./Unit Complaint [id number] 05/01/2016 22:12:00 2016 11:51:00 DIS Inpatient THOMAS CROSS [facility] 4TH PACYTOPENIA,SPLENOMEGALY WITH LUQ PAIN, MELENA [id number] 05/29/2016 05:52:00 ACT Outpatient ARTEMIO MOTA MD [facility] PREOP ANEMIA [id number] 05/27/2016 13:45:00 ACT Outpatient RILEY YIP APRN [facility] WOUNDCARE [id number] 05/26/2016 09:16:00 ACT Outpatient THOMAS CROSS [facility] ONC [id number] 05/13/2016 07:22:00 ACT Outpatient ARTEMIO MOTA MD [facility] ENDO IRON DEF. ANEMIA [id number] 05/08/2016 09:59:00 ACT Outpatient ARTEMIO MOTA MD [facility] PREOP IRON DEF. ANEMIA [id number] 04/23/2015 10:17:00 ACT Outpatient CHERRIE CROOKS MD [facility] CARD SYNCOPE,HTN
--- OUTSIDE RECORDS SUMMARY | 2016-06-02 10:36 | XMS REPORT | Continuity of Care Document ---
Author Author [facility] Organization [facility] Address Unknown Phone Unavailable Allergies Active Description Code Type Severity Reaction Onset Reported/Identified Relationship to Patient Clinical Status Yes No Known Drug Allergies [id number] Drug Allergy Unknown N/ A 05/01/2016 Medications [...] ABO+Rh group AP NRG Transfusion band number [id number] NRG Blood group antibody screen NEGATIVE NRG [...] Status Pt. Type Provider Facility Loc./Unit Complaint [id number] 05/01/2016 22:12:00 2016 11:51:00 DIS Inpatient THOMAS CROSS [facility] 4TH PACYTOPENIA,SPLENOMEGALY WITH LUQ PAIN, MELENA [id number] 05/29/2016 05:52:00 ACT Outpatient ARTEMIO MOTA MD [facility] PREOP ANEMIA [id number] 05/27/2016 13:45:00 ACT Outpatient RILEY YIP APRN [facility] WOUNDCARE [id number] 05/26/2016 09:16:00 ACT Outpatient THOMAS CROSS [facility] ONC [id number] 05/13/2016 07:22:00 ACT Outpatient ARTEMIO MOTA MD [facility] ENDO IRON DEF. ANEMIA [id number] 05/08/2016 09:59:00 ACT Outpatient ARTEMIO MOTA MD [facility] PREOP IRON DEF. ANEMIA [id number] 04/23/2015 10:17:00 ACT Outpatient CHERRIE CROOKS MD [facility] CARD SYNCOPE,HTN
[2016-06-02] MEDS ORDERED: NALOXONE 0.4 MG/ML 1 ML (NARCAN) VIAL IVP PRN (10:45)
[2016-06-02] MEDS ORDERED: NS IV 500 ML 500 ML IV ONE (10:45)
[2016-06-02] MEDS ORDERED: FLUMAZENIL (ROMAZICON) 0.1 MG/ML 5 ML VIAL INJ PRN (10:45)
--- NOTE | 2016-06-02 11:01 | Pre-Op Note & Conscious Sedat ---
Pre-Operative Progress Note H&P Reviewed The H&P was reviewed, patient examined and no changes noted. Date H&P Reviewed: Jun 02, 2016 Time H&P Reviewed: 10:41 Pre-Op Diagnosis: Iron deficiency anemia. Gastric erosions Conscious Sedation Pre-Proced ASA Class: 3 Airway Mallampati Classification: ([place] appropriate class) I. II. III, IV Lungs Heart ASA score ASA 1: a normal healthy patient ASA 2: a patient with a mild systemic disease (mid diabetes, controlled hypertension, obesity ASA 3: a patient with a severe systemic disease that limits activity (angina , COPD, prior Myocardial infarction) ASA 4: a patient with an incapacitating disease that is a constant threat to life (CHF, renal failure) ASA 5: a moribund patient not expected to survive 24 hrs. (ruptured aneurysm) ASA 6: a declared brain patient whose organs are being harvested. For emergent operations, add the letter E after the classification Grade 2 Sedation Plan: Discussed options with patient/fam Note The patient is an appropriate candidate to undergo the planned procedure, sedation, and anesthesia. The patient immediately re-assessed prior to indication. ARTEMIO MOTA MD Jun 02, 2016 11:01 am
[2016-06-02 11:15] VITALS: BP 123/56
[2016-06-02] MEDS ORDERED: fentaNYL INJECTION 100 MCG/2 ML AMP ONE (11:59)
[2016-06-02] MEDS ORDERED: MIDAZOLAM 2 MG/2 ML (VERSED) VIAL ONE ×2 (12:00)
[2016-06-02] MEDS ORDERED: HURRICAINE EXT TUBE (BENZOCAINE) ONE (12:00)
[2016-06-02] MEDS: fentaNYL INJECTION 100 MCG/2 ML AMP IVP PRN ×2 (12:12→12:16)
[2016-06-02] MEDS: MIDAZOLAM 2 MG/2 ML (VERSED) VIAL IVP PRN ×2 (12:14→12:18)
--- NOTE | 2016-06-02 12:29 | Progress Note-Post Operative ---
Post-Operative Progess Note Pre-Operative Diagnosis Iron deficiency anemia. Gastric erosions Post-Operative Diagnosis grade 2 esophagitis. Petechia in the distal stomach Post-Op Procedure Note Date of Procedure: Jun 02, 2016 Name of Procedure: EGD with GE junction biopsy Anesthesia Type sedation Specimen(s) collected mucosa of gastroesophageal junction ARTEMIO MOTA MD Jun 02, 2016 12:29
--- NOTE | 2016-06-02 12:31 | Discharge Inst-Simple/Standard ---
Discharge Inst-Standard Discharge Medications New, Converted or Re-Newed RX: Other Patient Instructions/Follow Up Plan of Care/Instructions/FU: we shall call him regarding further recommendations Activity as Tolerated: Yes Discharge Diet: ADA Diet ARTEMIO MOTA MD Jun 02, 2016 12:31
[2016-06-02 13:10] VITALS: BP 100/55
[2016-06-02 13:45] VITALS: BP 114/75
[2016-06-02 14:15] VITALS: BP 114/75
[2016-06-02 14:20] LABS: CREATININE SERUM 0.87 MG/DL (0.60-1.30)
--- NOTE | 2016-06-03 10:05 | PROCEDURE REPORT ---
PROCEDURE PHYSICIAN: ARTEMIO MOTA DATE OF PROCEDURE: 06/02/2016 PROCEDURE: Upper GI endoscopy with biopsy of deep gastroesophageal junction. SURGEON: Darci INDICATION FOR THE PROCEDURE: This gentleman is being evaluated for ongoing pancytopenia with severe iron deficiency anemia, requiring blood transfusions. Colonoscopy performed by Dr. Martinez at [facility] was negative. Upper endoscopy showed some gastric erosions. Capsule endoscopy was negative for any sinister lesions. Therefore, he returned for repeat upper endoscopy to reassess the gastric abnormality. Informed consent was obtained after reviewing the procedure in detail. DESCRIPTION OF PROCEDURE: He was placed in left lateral decubitus position and his vital signs were monitored. Conscious sedation was achieved using Versed and fentanyl. The flexible gastroscope was introduced down the esophagus, past the stomach, into the proximal duodenum. FINDINGS: ESOPHAGUS: Hiatal hernia with grade II esophagitis. Biopsy of gastroesophageal junction was performed to rule out Newton's changes. STOMACH: A few petechiae without any active bleeding were found along the distal stomach. DUODENUM: Normal. He tolerated the procedure well and was taken back to the nursing area in a stable condition. IMPRESSION: Ongoing iron deficiency anemia. No definitive source identified so far. Job ID: [id number] Dictated Date: 06/02/2016 12:28:07 Sterilizer Machine Operator Date: 06/03/2016 10:00:16 / tasha PRESCOTT
== END 2016-06-02 14:15 | disposition home or self-care (01) ==
LOC: ENDO 10:29
PROVIDERS: ATTEND Surgery
DX: D50.9 Iron deficiency anemia, unspecified (principal); K20.9 Esophagitis, unspecified; K44.9 Diaphragmatic hernia without obstruction or gangrene; I10 Essential (primary) hypertension; E03.9 Hypothyroidism, unspecified; E11.9 Type 2 diabetes mellitus without complications; Z01.89 Encounter for other specified special examinations
CPT/HCPCS: 36415; 80074; 82565; 82962; 84520; 88305

== ENCOUNTER 2016-06-03 12:56 | Outpatient (RCR) | payer MEDICARE, MEDICAID ==
--- OUTSIDE RECORDS SUMMARY | 2016-05-27 13:49 | XMS REPORT | Continuity of Care Document ---
Author Author [facility] Organization [facility] Address Unknown Phone Unavailable Allergies Active Description Code Type Severity Reaction Onset Reported/Identified Relationship to Patient Clinical Status Yes No Known Drug Allergies [id number] Drug Allergy Unknown N/ A 05/01/2016 Medications [...] ENLARGED LYMPH NODES 05/09/2016 NAKUL ROSENTHAL, ARTEMIO M Ot D50.0 IRON DEFICIENCY ANEMIA SECONDARY TO BLOO 05/09/2016 NAKUL ROSENTHAL, ARTEMIO M Ot Z01.818 ENCOUNTER FOR OTHER PREPROCEDURAL EXAMIN 05/12/2016 NAKUL ROSENTHAL, ARTEMIO M Ot D50.0 IRON DEFICIENCY ANEMIA SECONDARY TO BLOO 05/12/2016 NAKUL ROSENTHAL, ARTEMIO M Ot Z01.818 ENCOUNTER FOR OTHER PREPROCEDURAL EXAMIN 05/12/2016 NAKUL ROSENTHAL, ARTEMIO M Ot D50.0 IRON DEFICIENCY ANEMIA SECONDARY TO BLOO 05/12/2016 NAKUL ROSENTHAL, ARTEMIO M Ot Z01.818 ENCOUNTER FOR OTHER PREPROCEDURAL EXAMIN 05/12/2016 NAKUL ROSENTHAL, ARTEMIO M Ot D50.0 IRON DEFICIENCY ANEMIA SECONDARY TO BLOO 05/12/2016 NAKUL ROSENTHAL, ARTEMIO M Ot Z01.818 ENCOUNTER FOR OTHER PREPROCEDURAL EXAMIN 05/12/2016 NAKUL ROSENTHAL, ARTEMIO M Ot D50.0 IRON DEFICIENCY ANEMIA SECONDARY TO BLOO 05/12/2016 NAKUL ROSENTHAL, ARTEMIO M Ot Z01.818 ENCOUNTER FOR OTHER PREPROCEDURAL EXAMIN 05/12/2016 NAKUL ROSENTHAL, ARTEMIO M Ot D50.0 IRON DEFICIENCY ANEMIA SECONDARY TO BLOO 05/12/2016 NAKUL ROSENTHAL, ARTEMIO M Ot Z01.818 ENCOUNTER FOR OTHER PREPROCEDURAL EXAMIN 05/12/2016 NAKUL ROSENTHAL, ARTEMIO M Ot D50.0 IRON DEFICIENCY ANEMIA SECONDARY TO BLOO 05/12/2016 NAKUL ROSENTHAL, ARTEMIO M Ot Z01.818 ENCOUNTER FOR OTHER PREPROCEDURAL EXAMIN 05/12/2016 NAKUL ROSENTHAL, ARTEMIO M Ot D50.0 IRON DEFICIENCY ANEMIA SECONDARY TO BLOO 05/12/2016 NAKUL ROSENTHAL, ARTEMIO Larios Ot Z01.818 ENCOUNTER FOR OTHER PREPROCEDURAL EXAMIN 05/21/2016 NAKUL ROSENTHAL, ARTEMIO Larios Ot D50.9 IRON DEFICIENCY ANEMIA, UNSPECIFIED Procedures Results Test Result Range Complete blood [...] ABO+Rh group AP NRG Transfusion band number [id number] NRG Blood group antibody screen NEGATIVE NRG [...] Status Pt. Type Provider Facility Loc./Unit Complaint [id number] 05/01/2016 22:12:00 2016 11:51:00 DIS Inpatient THOMAS CROSS [facility] 4TH PACYTOPENIA,SPLENOMEGALY WITH LUQ PAIN, MELENA [id number] 05/27/2016 16:15:00 PEN Preadmit RILEY YIP APRN [facility] WOUNDCARE [id number] 05/26/2016 09:16:00 ACT Outpatient THOMAS CROSS [facility] ONC [id number] 05/13/2016 07:22:00 ACT Outpatient ARTEMIO MOTA MD [facility] ENDO IRON DEF. ANEMIA [id number] 05/08/2016 09:59:00 ACT Outpatient ARTEMIO MOTA MD [facility] PREOP IRON DEF. ANEMIA [id number] 04/23/2015 10:17:00 ACT Outpatient CHERRIE CROOKS MD [facility] CARD SYNCOPE,HTN
== END 2016-06-19 16:00 | disposition home or self-care (01) ==
LOC: WOUNDCARE 12:56
PROVIDERS: ATTEND Nurse Practitioner
DX: L97.211 Non-pressure chronic ulcer of right calf limited to breakdown of skin (principal); L97.221 Non-pressure chronic ulcer of left calf limited to breakdown of skin; I87.2 Venous insufficiency (chronic) (peripheral); L30.9 Dermatitis, unspecified
CPT/HCPCS: 99213; 99215

== ENCOUNTER → 2016-06-11 | Outpatient (CLI) | payer MEDICARE, MEDICAID ==
[~2016-06-11] MED LIST changes: +GADOXETATE 2.5 MMOL/10 ML (EOVIST) IV ONE
--- NOTE | 2016-06-11 13:36 | Diagnostic Imaging Report ---
PROCEDURE: MR imaging abdomen with and without contrast. TECHNIQUE: Multiplanar, multisequence MR imaging of the abdomen was performed with and without contrast. INDICATION: Right hepatic nodule seen incidentally on CT scan. 10 mL of Eovist is administered intravenously. FINDINGS: The liver contour is nodular compatible with cirrhosis. There is a superior right hepatic lobe mass measuring 2 cm in size. It is T2 isointense and minimally hyperintense on T1-weighted images. Postcontrast images demonstrate suggestion of early phase mild enhancement. This is of is motion artifact. The mass then becomes hypointense to the rest of the liver parenchyma on later phases. This is concerning for hepatocellular carcinoma. No other lesion is seen in the liver. The spleen is moderately enlarged measuring 17.6 cm in AP dimension. The adrenal glands appear unremarkable. The pancreas appears unremarkable. The abdominal aorta is normal in caliber. The kidneys demonstrate no hydronephrosis or focal lesion. Mildly prominent nonspecific lymph nodes in the adam hepatis seen. IMPRESSION: 1. Nodular contour of the liver is suggestive of cirrhosis. There is also moderate splenomegaly. No ascites. 2. A 2 cm nodule with suggestion of early enhancement and washout suggestive of hepatocellular carcinoma. Confirmation with biopsy is suggested. Liver ultrasound to check if this is visible for ultrasound-guided biopsy is recommended. Dictated by: Dictated on workstation # [id number]
== END ==
LOC: RAD 09:33
PROVIDERS: ATTEND Surgery
DX: R16.0 Hepatomegaly, not elsewhere classified (principal)
CPT/HCPCS: 74183

== ENCOUNTER 2016-07-02 10:52 | Outpatient (RCR) | payer MEDICARE, MEDICAID ==
--- OUTSIDE RECORDS SUMMARY | 2016-04-28 12:32 | XMS REPORT | Continuity of Care Document ---
Author Author [facility] Organization [facility] Address Unknown Phone Unavailable Allergies Medications Problems Date Dx Coded Attending Type Code Diagnosis Diagnosed By 05/16/2015 CHERRIE CROOKS MD Ot E11.9 05/16/2015 CHERRIE CROOKS MD Ot E66.9 05/16/2015 CHERRIE CROOKS MD Ot I10 05/16/2015 CHERRIE CROOKS MD Ot R55 05/28/2015 CHERRIE CROOKS MD Ot E11.9 05/28/2015 CHERRIE CROOKS MD Ot E66.9 05/28/2015 CHERRIE CROOKS MD Ot I10 05/28/2015 CHERRIE CROOKS MD Ot R55 05/28/2015 CHERRIE CROOKS MD Ot E11.9 05/28/2015 CHERRIE CROOKS MD Ot E66.9 05/28/2015 CHERRIE CROOKS MD Ot I10 05/28/2015 CHERRIE CROOKS MD Ot R55 Procedures Results Encounters ACCT No. Visit Date/Time Discharge Status Pt. Type Provider Facility Loc./Unit Complaint [id number] 04/28/2016 12:22:00 PEN Preadmit THOMAS CROSS [facility] ONC [id number] 04/23/2015 10:17:00 ACT Outpatient CHERRIE CROOKS MD [facility] CARD
[2016-04-28 13:36] LABS: BASOPHILS % (AUTO) 0 % (0-10); EOSINOPHILS # (AUTO) 0.1 10^3/uL (0.0-0.3); EOSINOPHILS % (AUTO) 3 % (0-10); LYMPHOCYTES # (AUTO) 0.7 X 10^3 (1.0-4.0); LYMPHOCYTES % (AUTO) 25 % (12-44); MEAN CORPUSCULAR HEMOGLOBIN 28 PG (25-34); MEAN CORPUSCULAR HGB CONC 30 G/DL (32-36); MEAN CORPUSCULAR VOLUME 93 FL (80-99); MEAN PLATELET VOLUME 8.7 FL (7.4-10.4); MONOCYTES # (AUTO) 0.2 X 10^3 (0.0-1.0); MONOCYTES % (AUTO) 9 % (0-12); NEUTROPHILS # (AUTO) 1.6 X 10^3 (1.8-7.8); NEUTROPHILS % (AUTO) 62 % (42-75); PLATELET COUNT 119 10^3/uL (130-400); RED CELL DISTRIBUTION WIDTH 15.9 % (10.0-14.5); RETICULOCYTE % 3.76 % (0.50-2.40); WHITE BLOOD COUNT 2.6 10^3/uL (4.3-11.0)
[2016-04-28 14:08] LABS: ALANINE AMINOTRANSFERASE 32 U/L (0-55); ALBUMIN 3.3 G/DL (3.2-4.5); ANION GAP 6 MMOL/L (5-14); ASPARTATE AMINO TRANSFERASE 35 U/L (5-34); BILIRUBIN,TOTAL 0.3 MG/DL (0.1-1.0); BLOOD UREA NITROGEN 28 MG/DL (7-18); BUN/CREATININE RATIO 25; CALCIUM 8.9 MG/DL (8.5-10.1); CARBON DIOXIDE 25 MMOL/L (21-32); CHLORIDE 113 MMOL/L (98-107); CREATININE SERUM 1.11 MG/DL (0.60-1.30); GFR ESTIMATED > 60; GLUCOSE 130 MG/DL (70-105); LACTATE DEHYDROGENASE 149 U/L (125-220); POTASSIUM 4.9 MMOL/L (3.6-5.0); SODIUM 144 MMOL/L (135-145); TOTAL PROTEIN 6.6 G/DL (6.4-8.2)
[2016-04-28 14:36] LABS: THYROID STIMULATING HORMONE 4.64 UIU/ML (0.35-4.94)
[2016-04-28 17:13] LABS: BAND NEUTROPHILS 1 %; BASOPHILS % (MANUAL) 1 %; EOSINOPHILS % (MANUAL) 3 %; LYMPHOCYTES % (MANUAL) 22 %; NEUTROPHILS % (MANUAL) 65 %; POLYCHROMASIA SLIGHT; REACTIVE LYMPHOCYTES 3 %
[2016-04-28 17:14] LABS: HYPOCHROMASIA SLIGHT; POIKILOCYTOSIS SLIGHT; STOMATOCYTES SLIGHT
[2016-04-28 17:17] LABS: ANISOCYTOSIS MODERATE
[2016-05-06 08:04] LABS: BASOPHILS % (AUTO) 1 % (0-10); EOSINOPHILS # (AUTO) 0.2 10^3/uL (0.0-0.3); EOSINOPHILS % (AUTO) 5 % (0-10); LYMPHOCYTES # (AUTO) 0.6 X 10^3 (1.0-4.0); LYMPHOCYTES % (AUTO) 19 % (12-44); MEAN CORPUSCULAR HEMOGLOBIN 29 PG (25-34); MEAN CORPUSCULAR HGB CONC 32 G/DL (32-36); MEAN CORPUSCULAR VOLUME 90 FL (80-99); MEAN PLATELET VOLUME 9.3 FL (7.4-10.4); MONOCYTES # (AUTO) 0.2 X 10^3 (0.0-1.0); MONOCYTES % (AUTO) 8 % (0-12); NEUTROPHILS # (AUTO) 2.2 X 10^3 (1.8-7.8); NEUTROPHILS % (AUTO) 68 % (42-75); PLATELET COUNT 145 10^3/uL (130-400); RED BLOOD COUNT 2.66 10^6/uL (4.35-5.85); RED CELL DISTRIBUTION WIDTH 15.8 % (10.0-14.5); WHITE BLOOD COUNT 3.2 10^3/uL (4.3-11.0)
[2016-05-13 14:24] LABS: BASOPHILS % (AUTO) 1 % (0-10); EOSINOPHILS # (AUTO) 0.1 10^3/uL (0.0-0.3); EOSINOPHILS % (AUTO) 3 % (0-10); LYMPHOCYTES # (AUTO) 0.6 X 10^3 (1.0-4.0); LYMPHOCYTES % (AUTO) 22 % (12-44); MEAN CORPUSCULAR HEMOGLOBIN 29 PG (25-34); MEAN CORPUSCULAR HGB CONC 31 G/DL (32-36); MEAN CORPUSCULAR VOLUME 93 FL (80-99); MEAN PLATELET VOLUME 9.3 FL (7.4-10.4); MONOCYTES # (AUTO) 0.2 X 10^3 (0.0-1.0); MONOCYTES % (AUTO) 8 % (0-12); NEUTROPHILS # (AUTO) 1.9 X 10^3 (1.8-7.8); NEUTROPHILS % (AUTO) 66 % (42-75); PLATELET COUNT 117 10^3/uL (130-400); RED BLOOD COUNT 2.58 10^6/uL (4.35-5.85); WHITE BLOOD COUNT 2.9 10^3/uL (4.3-11.0)
[2016-05-26 09:49] LABS: BASOPHILS % (AUTO) 0 % (0-10); EOSINOPHILS # (AUTO) 0.1 10^3/uL (0.0-0.3); EOSINOPHILS % (AUTO) 5 % (0-10); LYMPHOCYTES # (AUTO) 0.4 X 10^3 (1.0-4.0); LYMPHOCYTES % (AUTO) 18 % (12-44); MEAN CORPUSCULAR HEMOGLOBIN 31 PG (25-34); MEAN CORPUSCULAR HGB CONC 31 G/DL (32-36); MEAN CORPUSCULAR VOLUME 101 FL (80-99); MEAN PLATELET VOLUME 8.4 FL (7.4-10.4); MONOCYTES # (AUTO) 0.2 X 10^3 (0.0-1.0); MONOCYTES % (AUTO) 10 % (0-12); NEUTROPHILS # (AUTO) 1.6 X 10^3 (1.8-7.8); NEUTROPHILS % (AUTO) 67 % (42-75); PLATELET COUNT 118 10^3/uL (130-400); RED BLOOD COUNT 1.99 10^6/uL (4.35-5.85); RED CELL DISTRIBUTION WIDTH 19.7 % (10.0-14.5); WHITE BLOOD COUNT 2.4 10^3/uL (4.3-11.0)
[2016-05-26 13:32] LABS: BILIRUBIN,URINE NEGATIVE (NEGATIVE); KETONES,URINE NEGATIVE (NEGATIVE); LEUKOCYTE ESTERASE ,URINE NEGATIVE (NEGATIVE); NITRITE,URINE NEGATIVE (NEGATIVE); PH,URINE 6 (5-9); PROTEIN,URINE NEGATIVE (NEGATIVE); UROBILINOGEN,URINE NORMAL (NORMAL)
[2016-05-26 13:45] LABS: WBC,URINE 0-2 /HPF
[2016-06-06 07:49] LABS: BASOPHILS % (AUTO) 1 % (0-10); EOSINOPHILS # (AUTO) 0.1 10^3/uL (0.0-0.3); EOSINOPHILS % (AUTO) 2 % (0-10); LYMPHOCYTES # (AUTO) 0.6 X 10^3 (1.0-4.0); LYMPHOCYTES % (AUTO) 18 % (12-44); MEAN CORPUSCULAR HEMOGLOBIN 30 PG (25-34); MEAN CORPUSCULAR HGB CONC 32 G/DL (32-36); MEAN CORPUSCULAR VOLUME 96 FL (80-99); MEAN PLATELET VOLUME 9.1 FL (7.4-10.4); MONOCYTES # (AUTO) 0.3 X 10^3 (0.0-1.0); MONOCYTES % (AUTO) 10 % (0-12); NEUTROPHILS # (AUTO) 2.2 X 10^3 (1.8-7.8); NEUTROPHILS % (AUTO) 70 % (42-75); PLATELET COUNT 128 10^3/uL (130-400); RED BLOOD COUNT 2.51 10^6/uL (4.35-5.85); RED CELL DISTRIBUTION WIDTH 16.2 % (10.0-14.5); RETICULOCYTE % 3.61 % (0.50-2.40); WHITE BLOOD COUNT 3.2 10^3/uL (4.3-11.0)
[2016-06-06 08:10] LABS: ALANINE AMINOTRANSFERASE 27 U/L (0-55); ANION GAP 9 MMOL/L (5-14); ASPARTATE AMINO TRANSFERASE 33 U/L (5-34); BILIRUBIN,TOTAL 0.4 MG/DL (0.1-1.0); BLOOD UREA NITROGEN 13 MG/DL (7-18); BUN/CREATININE RATIO 16; CALCIUM 8.5 MG/DL (8.5-10.1); CARBON DIOXIDE 21 MMOL/L (21-32); CHLORIDE 113 MMOL/L (98-107); CREATININE SERUM 0.82 MG/DL (0.60-1.30); GFR ESTIMATED > 60; GLUCOSE 122 MG/DL (70-105); LACTATE DEHYDROGENASE 158 U/L (125-220); POTASSIUM 4.2 MMOL/L (3.6-5.0); SODIUM 143 MMOL/L (135-145); TOTAL PROTEIN 6.2 G/DL (6.4-8.2)
[2016-06-11 11:19] LABS: BASOPHILS % (AUTO) 1 % (0-10); EOSINOPHILS # (AUTO) 0.1 10^3/uL (0.0-0.3); EOSINOPHILS % (AUTO) 4 % (0-10); LYMPHOCYTES # (AUTO) 0.6 X 10^3 (1.0-4.0); LYMPHOCYTES % (AUTO) 18 % (12-44); MEAN CORPUSCULAR HEMOGLOBIN 30 PG (25-34); MEAN CORPUSCULAR HGB CONC 31 G/DL (32-36); MEAN CORPUSCULAR VOLUME 96 FL (80-99); MEAN PLATELET VOLUME 9.2 FL (7.4-10.4); MONOCYTES # (AUTO) 0.3 X 10^3 (0.0-1.0); MONOCYTES % (AUTO) 7 % (0-12); NEUTROPHILS # (AUTO) 2.4 X 10^3 (1.8-7.8); NEUTROPHILS % (AUTO) 70 % (42-75); PLATELET COUNT 165 10^3/uL (130-400); RED BLOOD COUNT 2.63 10^6/uL (4.35-5.85); RED CELL DISTRIBUTION WIDTH 16.4 % (10.0-14.5); WHITE BLOOD COUNT 3.4 10^3/uL (4.3-11.0)
[2016-06-18 09:59] LABS: BASOPHILS % (AUTO) 1 % (0-10); EOSINOPHILS # (AUTO) 0.1 10^3/uL (0.0-0.3); EOSINOPHILS % (AUTO) 3 % (0-10); LYMPHOCYTES # (AUTO) 0.5 X 10^3 (1.0-4.0); LYMPHOCYTES % (AUTO) 25 % (12-44); MEAN CORPUSCULAR HEMOGLOBIN 29 PG (25-34); MEAN CORPUSCULAR HGB CONC 31 G/DL (32-36); MEAN CORPUSCULAR VOLUME 95 FL (80-99); MEAN PLATELET VOLUME 9.1 FL (7.4-10.4); MONOCYTES # (AUTO) 0.2 X 10^3 (0.0-1.0); MONOCYTES % (AUTO) 10 % (0-12); NEUTROPHILS # (AUTO) 1.3 X 10^3 (1.8-7.8); NEUTROPHILS % (AUTO) 62 % (42-75); PLATELET COUNT 155 10^3/uL (130-400); RED BLOOD COUNT 2.73 10^6/uL (4.35-5.85); RED CELL DISTRIBUTION WIDTH 15.2 % (10.0-14.5); WHITE BLOOD COUNT 2.1 10^3/uL (4.3-11.0)
[2016-06-18 10:25] LABS: ALANINE AMINOTRANSFERASE 17 U/L (0-55); ALBUMIN 3.3 G/DL (3.2-4.5); ANION GAP 6 MMOL/L (5-14); ASPARTATE AMINO TRANSFERASE 31 U/L (5-34); BILIRUBIN,TOTAL 0.3 MG/DL (0.1-1.0); BLOOD UREA NITROGEN 12 MG/DL (7-18); BUN/CREATININE RATIO 14; CALCIUM 8.7 MG/DL (8.5-10.1); CARBON DIOXIDE 24 MMOL/L (21-32); CHLORIDE 112 MMOL/L (98-107); CREATININE SERUM 0.83 MG/DL (0.60-1.30); GFR ESTIMATED > 60; GLUCOSE 108 MG/DL (70-105); POTASSIUM 4.3 MMOL/L (3.6-5.0); SODIUM 142 MMOL/L (135-145); TOTAL PROTEIN 6.9 G/DL (6.4-8.2)
[~2016-07-02 10:52] MED LIST changes: +ACETAMINOPHEN 500 MG TAB (TYLENOL) CANCER CTR ONE; +FERRIC CARBOXYMALTOSE (CANCER) 750 MG in NS (IVPB) CANCER CENTER 250 ML IV SCH; -GADOXETATE 2.5 MMOL/10 ML (EOVIST) IV ONE; +NS (IVPB) CANCER CENTER 250 ML ONE
[2016-07-02 11:08] LABS: BASOPHILS % (AUTO) 0 % (0-10); EOSINOPHILS # (AUTO) 0.1 10^3/uL (0.0-0.3); EOSINOPHILS % (AUTO) 4 % (0-10); LYMPHOCYTES # (AUTO) 0.7 X 10^3 (1.0-4.0); LYMPHOCYTES % (AUTO) 23 % (12-44); MEAN CORPUSCULAR HEMOGLOBIN 29 PG (25-34); MEAN CORPUSCULAR HGB CONC 31 G/DL (32-36); MEAN CORPUSCULAR VOLUME 93 FL (80-99); MEAN PLATELET VOLUME 8.7 FL (7.4-10.4); MONOCYTES # (AUTO) 0.2 X 10^3 (0.0-1.0); MONOCYTES % (AUTO) 8 % (0-12); NEUTROPHILS # (AUTO) 2.1 X 10^3 (1.8-7.8); NEUTROPHILS % (AUTO) 66 % (42-75); PLATELET COUNT 129 10^3/uL (130-400); RED BLOOD COUNT 2.79 10^6/uL (4.35-5.85); RED CELL DISTRIBUTION WIDTH 14.2 % (10.0-14.5); WHITE BLOOD COUNT 3.2 10^3/uL (4.3-11.0)
== END 2016-07-27 | disposition home or self-care (01) ==
LOC: ONC 10:52
PROVIDERS: ATTEND Internal Medicine Hematology & Oncology
DX: D50.9 Iron deficiency anemia, unspecified (principal); K76.89 Other specified diseases of liver; R16.1 Splenomegaly, not elsewhere classified; R93.5 Abnormal findings on diagnostic imaging of other abdominal regions, including retroperitoneum; Z79.899 Other long term (current) drug therapy
CPT/HCPCS: 36415; 36430; 38221; 80053; 81000; 82105; 82728; 83540; 83615; 84153; 84443; 85007; 85025; 85027; 85045; 86850; 86900; 86901; 86920; 88184; 88185; 88305; 88311; 88313; 96365; 99213; 99214

== ENCOUNTER → 2016-07-22 | Outpatient (CLI) | payer MEDICARE, MEDICAID ==
[~2016-07-22] MED LIST changes: -ACETAMINOPHEN 500 MG TAB (TYLENOL) CANCER CTR ONE; -FERRIC CARBOXYMALTOSE (CANCER) 750 MG in NS (IVPB) CANCER CENTER 250 ML IV SCH; -NS (IVPB) CANCER CENTER 250 ML ONE
--- NOTE | 2016-07-22 11:49 | Diagnostic Imaging Report ---
EXAMINATION: Ultrasound of the liver. INDICATION: Liver mass. FINDINGS: Unremarkable exam with no focal lesion in the liver seen. Hyperechogenicity in the liver is probably secondary to cirrhosis. There is hepatopetal flow in the portal vein. The CBD is 5 mm in caliber. The gallbladder has been removed. No ascites is seen. The visualized portions of the pancreas appear unremarkable. The right kidney is 11.1 cm in length with no hydronephrosis or focal lesion. IMPRESSION: The liver parenchymal findings are suggestive of cirrhosis. The mass seen on the recent CT scan and MRI is not visualized by ultrasound. Biopsy could be obtained with CT scan guidance. Contrast injection might be needed if the nodule is not seen on the unenhanced CT. Dictated by: Dictated on workstation # [id number]
== END ==
LOC: RAD 09:23
PROVIDERS: ATTEND Nurse Practitioner Adult Health
DX: K76.89 Other specified diseases of liver (principal); R93.5 Abnormal findings on diagnostic imaging of other abdominal regions, including retroperitoneum
CPT/HCPCS: 76705

== ENCOUNTER 2016-07-30 06:28 | Day surgery (SDC) | payer MEDICARE, MEDICAID ==
[~2016-07-30] VITALS: Ht 165.1 cm; Wt 99.8 kg
[2016-07-30] VITALS (13 sets, daily range): BP systolic 118–150; BP diastolic 61–87
[2016-07-30] MEDS ORDERED: LIDOCAINE 1% INJ 20 ML (XYLOCAINE) VIAL ONE (07:34)
[2016-07-30 07:36] LABS: MEAN PLATELET VOLUME 9.4 FL (7.4-10.4); RED BLOOD COUNT 3.4 10^6/uL (4.35-5.85); RED CELL DISTRIBUTION WIDTH 14.7 % (10.0-14.5); WHITE BLOOD COUNT 2.9 10^3/uL (4.3-11.0)
[2016-07-30 07:47] LABS: INR 1.2 (0.8-1.4)
[2016-07-30] MEDS ORDERED: LIDOCAINE 1% INJ 20 ML (XYLOCAINE) VIAL INJ ONE (08:00)
[2016-07-30] MEDS ORDERED: fentaNYL INJECTION 100 MCG/2 ML AMP ONE (09:45)
[2016-07-30] MEDS ORDERED: HYDROcodone/APAP 5 MG/325 MG (LORTAB) TAB PO PRN (10:00)
--- NOTE | 2016-07-30 10:00 | Pre-Procedure Progress Note ---
Pre-Procedure Progress Note H&P Reviewed The H&P was reviewed, patient examined and no changes noted. Date H&P Reviewed: July 30, 2016 Time H&P Reviewed: 09:00 Pre-Procedure Diagnosis: liver mass ETHAN DAS MD July 30, 2016 10:00
[2016-07-30] MEDS ORDERED: fentaNYL INJECTION 100 MCG/2 ML AMP IVP PRN (10:30)
--- NOTE | 2016-07-30 11:26 | Diagnostic Imaging Report ---
EXAMINATION: 1. CT-guided biopsy-liver mass with intravenous contrast. 2. CT-guided placement of a radiopaque marker at the site of the right lobe liver mass. INDICATION: Indeterminate right hepatic lobe mass in a cirrhotic appearing liver concerning for hepatocellular carcinoma. Current history and physical and other medical records are reviewed prior to the procedure. CONSENT: Informed consent was obtained from the patient. The risks, benefits, potential complications and alternatives were reviewed and all questions answered to the patient's satisfaction. 75 mL of Omnipaque 350 is administered intravenously. The patient's vital signs, cardiac rhythm, and pulse oximetry were observed throughout the procedure by qualified nursing personnel. Sedation/medications: Fentanyl 25 mcg IV. FINDINGS: The unenhanced images obtained demonstrate nodular contour of the liver. The right hepatic lobe mass is not visible on the unenhanced exam. After contrast administration, an enhancing mass with delayed phase washout is seen in the right hepatic lobe. This was utilized to help guide the needle into the site of the mass. PROCEDURE: After maximal sterile barrier technique preparation and draping, 1% lidocaine was utilized for local anesthesia. With the patient in supine position, and via right anterolateral intercostal approach, a 19-gauge guide needle is introduced into the right hepatic lobe mass under CT scan guidance. After confirming adequate positioning with saved CT images, multiple 20 gauge core biopsy specimens were obtained. After obtaining the biopsy specimens, the guide needle was left in place and 21-gauge needle is placed through it into the center of the lesion. This was utilized to advance a 2 mm coil through it and the coil was deployed in the mass. The post-deployment images demonstrate good position with the coiled appearing to be at the upper lateral aspect of the area of the mass. Gelfoam injected in the tract as the guide needle was removed The patient tolerated the procedure well with no immediate complications. IMPRESSION: 1. Successful CT-guided biopsy of right hepatic dome mass. Contrast was utilized during this biopsy because the lesion is not visible on unenhanced exam. 2. CT-guided placement of a marking coil is also performed. After placement, location of the coil appears to be along the superior lateral aspect of the mass. Dictated by: Dictated on workstation # [id number]
== END 2016-07-30 14:35 | disposition home or self-care (01) ==
LOC: RAD 06:28
PROVIDERS: ATTEND Internal Medicine Hematology & Oncology
DX: C22.8 Malignant neoplasm of liver, primary, unspecified as to type (principal); K74.60 Unspecified cirrhosis of liver; D50.9 Iron deficiency anemia, unspecified
CPT/HCPCS: 36415; 77012; 85027; 85610; 85730

== ENCOUNTER 2016-08-07 14:12 | Outpatient (RCR) | payer MEDICARE, MEDICAID | END 2016-09-03 16:00 | disposition home or self-care (01) | LOC: WOUNDCARE 14:12 | PROVIDERS: ATTEND Nurse Practitioner | DX: I87.2 Venous insufficiency (chronic) (peripheral) (principal); E11.628 Type 2 diabetes mellitus with other skin complications; L30.9 Dermatitis, unspecified; I10 Essential (primary) hypertension | CPT/HCPCS: 99212; 99213 ==

== ENCOUNTER → 2016-10-13 | Outpatient (CLI) | payer MEDICARE, MEDICAID ==
[2016-10-13 14:23] LABS: BASOPHILS % (AUTO) 1 % (0-10); EOSINOPHILS # (AUTO) 0.2 10^3/uL (0.0-0.3); EOSINOPHILS % (AUTO) 5 % (0-10); LYMPHOCYTES # (AUTO) 0.6 X 10^3 (1.0-4.0); LYMPHOCYTES % (AUTO) 17 % (12-44); MEAN CORPUSCULAR HEMOGLOBIN 31 PG (25-34); MEAN CORPUSCULAR HGB CONC 33 G/DL (32-36); MEAN CORPUSCULAR VOLUME 95 FL (80-99); MEAN PLATELET VOLUME 10.8 FL (7.4-10.4); MONOCYTES # (AUTO) 0.3 X 10^3 (0.0-1.0); MONOCYTES % (AUTO) 9 % (0-12); NEUTROPHILS # (AUTO) 2.2 X 10^3 (1.8-7.8); NEUTROPHILS % (AUTO) 68 % (42-75); PLATELET COUNT 120 10^3/uL (130-400); RED BLOOD COUNT 3.26 10^6/uL (4.35-5.85); RED CELL DISTRIBUTION WIDTH 16.1 % (10.0-14.5); WHITE BLOOD COUNT 3.2 10^3/uL (4.3-11.0)
[2016-10-13 14:42] LABS: INR 1.1 (0.8-1.4); PROTHROMBIN TIME PATIENT 13.4 SEC (12.2-14.7)
[2016-10-13 14:49] LABS: ALANINE AMINOTRANSFERASE 20 U/L (0-55); ALBUMIN 3.4 GM/DL (3.2-4.5); ANION GAP 6 MMOL/L (5-14); ASPARTATE AMINO TRANSFERASE 22 U/L (5-34); BILIRUBIN,TOTAL 0.5 MG/DL (0.1-1.0); BLOOD UREA NITROGEN 18 MG/DL (7-18); BUN/CREATININE RATIO 19; CALCIUM 9.5 MG/DL (8.5-10.1); CARBON DIOXIDE 23 MMOL/L (21-32); CHLORIDE 110 MMOL/L (98-107); CREATININE SERUM 0.95 MG/DL (0.60-1.30); GFR ESTIMATED > 60; GLUCOSE 165 MG/DL (70-105); POTASSIUM 5.9 MMOL/L (3.6-5.0); SODIUM 139 MMOL/L (135-145); TOTAL PROTEIN 7.3 GM/DL (6.4-8.2)
== END ==
LOC: LAB 12:12
PROVIDERS: ATTEND Nurse Practitioner Family
DX: C22.8 Malignant neoplasm of liver, primary, unspecified as to type (principal)
CPT/HCPCS: 36415; 80053; 85025; 85610

== ENCOUNTER 2016-11-06 10:50 | Outpatient (RCR) | payer MEDICARE, MEDICAID ==
[2016-08-13 13:06] LABS: BASOPHILS % (AUTO) 0 % (0-10); EOSINOPHILS # (AUTO) 0.1 10^3/uL (0.0-0.3); EOSINOPHILS % (AUTO) 5 % (0-10); LYMPHOCYTES # (AUTO) 0.6 X 10^3 (1.0-4.0); LYMPHOCYTES % (AUTO) 21 % (12-44); MEAN CORPUSCULAR HEMOGLOBIN 29 PG (25-34); MEAN CORPUSCULAR HGB CONC 32 G/DL (32-36); MEAN CORPUSCULAR VOLUME 91 FL (80-99); MEAN PLATELET VOLUME 9.4 FL (7.4-10.4); MONOCYTES # (AUTO) 0.2 X 10^3 (0.0-1.0); MONOCYTES % (AUTO) 8 % (0-12); NEUTROPHILS # (AUTO) 1.8 X 10^3 (1.8-7.8); NEUTROPHILS % (AUTO) 66 % (42-75); PLATELET COUNT 93 10^3/uL (130-400); RED BLOOD COUNT 3.67 10^6/uL (4.35-5.85); RED CELL DISTRIBUTION WIDTH 14.9 % (10.0-14.5); WHITE BLOOD COUNT 2.7 10^3/uL (4.3-11.0)
[2016-08-13 13:53] LABS: ALANINE AMINOTRANSFERASE 24 U/L (0-55); ALBUMIN 3.6 G/DL (3.2-4.5); ANION GAP 7 MMOL/L (5-14); ASPARTATE AMINO TRANSFERASE 33 U/L (5-34); BILIRUBIN,TOTAL 0.3 MG/DL (0.1-1.0); BLOOD UREA NITROGEN 19 MG/DL (7-18); BUN/CREATININE RATIO 18; CALCIUM 9.3 MG/DL (8.5-10.1); CARBON DIOXIDE 26 MMOL/L (21-32); CHLORIDE 107 MMOL/L (98-107); CREATININE SERUM 1.06 MG/DL (0.60-1.30); GFR ESTIMATED > 60; GLUCOSE 238 MG/DL (70-105); LACTATE DEHYDROGENASE 161 U/L (125-220); POTASSIUM 5.4 MMOL/L (3.6-5.0); SODIUM 140 MMOL/L (135-145); TOTAL PROTEIN 7.6 G/DL (6.4-8.2)
[2016-09-10 10:41] LABS: BASOPHILS % (AUTO) 0 % (0-10); EOSINOPHILS % (AUTO) 1 % (0-10); LYMPHOCYTES # (AUTO) 0.4 X 10^3 (1.0-4.0); LYMPHOCYTES % (AUTO) 14 % (12-44); MEAN CORPUSCULAR HEMOGLOBIN 29 PG (25-34); MEAN CORPUSCULAR HGB CONC 33 G/DL (32-36); MEAN CORPUSCULAR VOLUME 89 FL (80-99); MONOCYTES # (AUTO) 0.1 X 10^3 (0.0-1.0); MONOCYTES % (AUTO) 4 % (0-12); NEUTROPHILS # (AUTO) 2.6 X 10^3 (1.8-7.8); NEUTROPHILS % (AUTO) 82 % (42-75); PLATELET COUNT 105 10^3/uL (130-400); RED BLOOD COUNT 3.55 10^6/uL (4.35-5.85); RED CELL DISTRIBUTION WIDTH 15.3 % (10.0-14.5); WHITE BLOOD COUNT 3.1 10^3/uL (4.3-11.0)
[2016-09-10 11:07] LABS: ALANINE AMINOTRANSFERASE 34 U/L (0-55); ALBUMIN 3.5 GM/DL (3.2-4.5); ANION GAP 7 MMOL/L (5-14); ASPARTATE AMINO TRANSFERASE 31 U/L (5-34); BILIRUBIN,TOTAL 0.4 MG/DL (0.1-1.0); BLOOD UREA NITROGEN 21 MG/DL (7-18); BUN/CREATININE RATIO 19; CALCIUM 9.3 MG/DL (8.5-10.1); CARBON DIOXIDE 26 MMOL/L (21-32); CHLORIDE 107 MMOL/L (98-107); CREATININE SERUM 1.13 MG/DL (0.60-1.30); GFR ESTIMATED > 60; GLUCOSE 356 MG/DL (70-105); HEMOLYSIS 3 (-100-29); ICTERUS 0.3 (-100-1.9); LIPEMIA 10 (-100-49); SODIUM 140 MMOL/L (135-145); TOTAL PROTEIN 7.8 GM/DL (6.4-8.2)
[2016-10-23 10:37] LABS: BASOPHILS % (AUTO) 0 % (0-10); EOSINOPHILS # (AUTO) 0.2 10^3/uL (0.0-0.3); EOSINOPHILS % (AUTO) 5 % (0-10); LYMPHOCYTES # (AUTO) 0.5 X 10^3 (1.0-4.0); LYMPHOCYTES % (AUTO) 18 % (12-44); MEAN CORPUSCULAR HEMOGLOBIN 31 PG (25-34); MEAN CORPUSCULAR HGB CONC 33 G/DL (32-36); MEAN CORPUSCULAR VOLUME 95 FL (80-99); MEAN PLATELET VOLUME 8.7 FL (7.4-10.4); MONOCYTES # (AUTO) 0.2 X 10^3 (0.0-1.0); MONOCYTES % (AUTO) 6 % (0-12); NEUTROPHILS # (AUTO) 2.2 X 10^3 (1.8-7.8); NEUTROPHILS % (AUTO) 71 % (42-75); PLATELET COUNT 88 10^3/uL (130-400); RED BLOOD COUNT 2.99 10^6/uL (4.35-5.85); RED CELL DISTRIBUTION WIDTH 15.2 % (10.0-14.5); WHITE BLOOD COUNT 3.1 10^3/uL (4.3-11.0)
[2016-10-23 11:42] LABS: ALANINE AMINOTRANSFERASE 39 U/L (0-55); ALBUMIN 3.3 GM/DL (3.2-4.5); ANION GAP 6 MMOL/L (5-14); ASPARTATE AMINO TRANSFERASE 30 U/L (5-34); BILIRUBIN,TOTAL 0.8 MG/DL (0.1-1.0); BLOOD UREA NITROGEN 14 MG/DL (7-18); BUN/CREATININE RATIO 15; CALCIUM 9.4 MG/DL (8.5-10.1); CARBON DIOXIDE 27 MMOL/L (21-32); CHLORIDE 107 MMOL/L (98-107); CREATININE SERUM 0.96 MG/DL (0.60-1.30); GFR ESTIMATED > 60; GLUCOSE 279 MG/DL (70-105); POTASSIUM 4.6 MMOL/L (3.6-5.0); SODIUM 140 MMOL/L (135-145); TOTAL PROTEIN 6.9 GM/DL (6.4-8.2)
[~2016-11-06 10:50] MED LIST changes: +FERRIC CARBOXYMALTOSE (CANCER) 750 MG in NS (IVPB) CANCER CENTER 250 ML IV SCH
[2016-11-06 11:15] LABS: BASOPHILS % (AUTO) 1 % (0-10); EOSINOPHILS # (AUTO) 0.2 10^3/uL (0.0-0.3); EOSINOPHILS % (AUTO) 5 % (0-10); LYMPHOCYTES # (AUTO) 0.6 X 10^3 (1.0-4.0); LYMPHOCYTES % (AUTO) 20 % (12-44); MEAN CORPUSCULAR HEMOGLOBIN 32 PG (25-34); MEAN CORPUSCULAR HGB CONC 34 G/DL (32-36); MEAN CORPUSCULAR VOLUME 93 FL (80-99); MEAN PLATELET VOLUME 8.8 FL (7.4-10.4); MONOCYTES # (AUTO) 0.3 X 10^3 (0.0-1.0); MONOCYTES % (AUTO) 8 % (0-12); NEUTROPHILS # (AUTO) 2.1 X 10^3 (1.8-7.8); NEUTROPHILS % (AUTO) 67 % (42-75); PLATELET COUNT 135 10^3/uL (130-400); RED BLOOD COUNT 3.16 10^6/uL (4.35-5.85); RED CELL DISTRIBUTION WIDTH 14.3 % (10.0-14.5); WHITE BLOOD COUNT 3.1 10^3/uL (4.3-11.0)
== END 2016-11-11 | disposition home or self-care (01) ==
LOC: ONC 10:50
PROVIDERS: ATTEND Internal Medicine Hematology & Oncology
DX: C22.0 Liver cell carcinoma (principal); D61.818 Other pancytopenia; D50.9 Iron deficiency anemia, unspecified; R16.1 Splenomegaly, not elsewhere classified
CPT/HCPCS: 36415; 80053; 82105; 82728; 83615; 85025; 85045; 96365; 99213

== ENCOUNTER → 2016-11-06 | Outpatient (CLI) | payer MEDICARE, MEDICAID | LOC: LAB 10:53 | PROVIDERS: ATTEND Internal Medicine | DX: E11.628 Type 2 diabetes mellitus with other skin complications (principal); I10 Essential (primary) hypertension; I87.2 Venous insufficiency (chronic) (peripheral); K74.60 Unspecified cirrhosis of liver; L30.9 Dermatitis, unspecified | CPT/HCPCS: 36415; 83036 ==

== ENCOUNTER → 2016-11-06 | Outpatient (CLI) | payer MEDICARE, MEDICAID | LOC: WOUNDCARE 09:01 | PROVIDERS: ATTEND Internal Medicine | DX: I87.2 Venous insufficiency (chronic) (peripheral) (principal); K74.60 Unspecified cirrhosis of liver; L30.9 Dermatitis, unspecified; E11.628 Type 2 diabetes mellitus with other skin complications; I10 Essential (primary) hypertension | CPT/HCPCS: 99213 ==

== ENCOUNTER → 2016-11-13 | Outpatient (CLI) | payer MEDICARE, MEDICAID ==
[~2016-11-13] MED LIST changes: -FERRIC CARBOXYMALTOSE (CANCER) 750 MG in NS (IVPB) CANCER CENTER 250 ML IV SCH
== END ==
LOC: WOUNDCARE 09:14
PROVIDERS: ATTEND Internal Medicine
DX: I87.2 Venous insufficiency (chronic) (peripheral) (principal); K74.60 Unspecified cirrhosis of liver; L30.9 Dermatitis, unspecified; E11.628 Type 2 diabetes mellitus with other skin complications; I10 Essential (primary) hypertension
CPT/HCPCS: 99212

== ENCOUNTER → 2016-11-20 | Outpatient (CLI) | payer MEDICARE, MEDICAID ==
[~2016-11-20] MED LIST changes: +CATHETER FLUSH 10 ML SYR IV PRN; +IOHEXOL 350 MG/ML 150 ML (OMNIPAQUE 350) VIAL IV ONE; +NS 100 ML (IVPB) BAG IV ONE
--- NOTE | 2016-11-20 15:44 | Diagnostic Imaging Report ---
CTA of the aorta with bilateral runoffs. INDICATION: Leg pain. Contiguous axial sections were taken through the lower thorax, abdomen, pelvis and lower extremities following administration of intravenous contrast. Coronal reconstructed images were also obtained. The previous CTA chest, abdomen and pelvis exam of 05/01/16 failed to show any sign of an aneurysm of the aorta. There is no significant aortoiliac disease either. FINDINGS: On this exam, there is no aneurysmal dilatation of the abdominal aorta. There is no evidence for a hemodynamically significant stenosis of the origins of the celiac or superior mesenteric arteries or the renal arteries. The inferior mesenteric artery is generally unremarkable as well. There is also good arterial blood flow in the iliac systems, common femoral and superficial femoral arteries. The superficial femoral arteries are heavily calcified but there is no hemodynamically significant stenosis identified. There is no evidence for a hemodynamically significant stenosis of the popliteal arteries either. However, there is only a single vessel (posterior tibial artery runoff to the ankles). The peroneal and anterior tibial arteries are not well opacified and most likely occluded. There also appears to be generalized edema of the subcutaneous fat and musculature of the lower legs. There is no acute abnormality of the abdomen or pelvis. The MRI abdomen exam performed on 06/11/16 did note a 2 cm nodule with early enhancement in the right lobe of the liver. This finding was felt to be suspicious for hepatocellular carcinoma. There is a surgical clip in this region of this area and reportedly MRI of the abdomen is pending for further evaluation. The hepatomegaly and splenomegaly seen on the MRI exam are again evident and no different. There are nonobstructive calculi in both kidneys. The adrenal glands are unremarkable. The gallbladder is surgically absent. The stomach is not well distended and consequently difficult to assess. The urinary bladder and prostate gland are grossly unremarkable. There are are a few diverticula in the sigmoid colon but there is no sign of acute diverticulitis. The appendix is not abnormally thickened. The lung bases are clear. The bone windows show no sign of a fracture or of a destructive lesion. IMPRESSION: 1. 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 There is only a single vessel (posterior tibial artery) runoff to each lower leg. 2. There is no hemodynamically significant stenosis of the lower extremities identified otherwise. 3. There is no sign of an aneurysm of the aorta and there is no hemodynamically significant stenosis of the major branches of the aorta. 4. The hepatomegaly and splenomegaly seen previously are again evident. MRI of the abdomen is pending for further evaluation of the lesion in the right lobe of the liver. Dictated by: Dictated on workstation # [id number]
== END ==
LOC: RAD 12:48
PROVIDERS: ATTEND Internal Medicine
DX: E11.51 Type 2 diabetes mellitus with diabetic peripheral angiopathy without gangrene (principal); I10 Essential (primary) hypertension; R16.2 Hepatomegaly with splenomegaly, not elsewhere classified
CPT/HCPCS: 75635

== ENCOUNTER → 2016-11-20 | Outpatient (CLI) | payer MEDICARE, MEDICAID ==
[~2016-11-20] MED LIST changes: -CATHETER FLUSH 10 ML SYR IV PRN; -IOHEXOL 350 MG/ML 150 ML (OMNIPAQUE 350) VIAL IV ONE; -NS 100 ML (IVPB) BAG IV ONE
== END ==
LOC: RAD 12:51
PROVIDERS: ATTEND Nurse Practitioner Adult Health
DX: C22.0 Liver cell carcinoma (principal)

== ENCOUNTER → 2016-11-20 | Outpatient (CLI) | payer MEDICARE, MEDICAID | LOC: WOUNDCARE 09:10 | PROVIDERS: ATTEND Internal Medicine | DX: K74.60 Unspecified cirrhosis of liver (principal); L30.9 Dermatitis, unspecified; E11.628 Type 2 diabetes mellitus with other skin complications; I10 Essential (primary) hypertension; I73.9 Peripheral vascular disease, unspecified | CPT/HCPCS: 99212 ==

== ENCOUNTER → 2016-11-27 | Outpatient (CLI) | payer MEDICARE, MEDICAID | LOC: WOUNDCARE 09:22 | PROVIDERS: ATTEND Internal Medicine | DX: K74.60 Unspecified cirrhosis of liver (principal); L30.9 Dermatitis, unspecified; E11.628 Type 2 diabetes mellitus with other skin complications; I10 Essential (primary) hypertension; I73.9 Peripheral vascular disease, unspecified | CPT/HCPCS: 99213 ==

== ENCOUNTER → 2016-11-28 | Outpatient (CLI) | payer MEDICARE, MEDICAID ==
[~2016-11-28] MED LIST changes: +GADOXETATE 2.5 MMOL/10 ML (EOVIST) IV ONE
--- NOTE | 2016-11-28 13:06 | Diagnostic Imaging Report ---
PROCEDURE: MR imaging abdomen with and without contrast. TECHNIQUE: Multiplanar, multisequence MR imaging of the abdomen was performed with and without contrast. INDICATION: History of hepatocellular carcinoma. 9 mL of Gadavist is administered intravenously. FINDINGS: There is interval biopsy and placement of a metallic marker at the site of the tumor. This is resulting in some artifacts at the tumor level in the superior aspect of the right hepatic lobe. There is suggestion of decreased signal on T1-weighted images in the tumor. Although this could in part be related to the artifacts from the adjacent metal, development of necrosis is a possible explanation as well. Maximum transverse dimension of the tumor is 2.1 cm compared to 2 cm on the previous exam. The adjacent artifact is a somewhat limiting factor in the evaluation of the size however there is no sign of a significant size change. There is minimal enhancement, decreased compared to the previous study. The liver contour demonstrates nodularity compatible with cirrhosis. No other mass is identified. The portal vein is patent. The spleen is moderately enlarged similar to the previous exam. The kidneys have symmetric enhancement. The pancreas, and the adrenal glands appear unremarkable. IMPRESSION: 1. A 2.1 cm right hepatic lobe mass in the superior aspect of the right hepatic lobe demonstrates no significant change in size compared to the previous exam. There is suggestion of increased necrosis within the tumor compared to the previous study however. Artifact from an adjacent marking clip slightly limit the accuracy of this lesion evaluation. 2. No other lesion has developed in the liver. 3. Stable manifestations of cirrhosis and moderate splenomegaly. Dictated on workstation # [id number]
== END ==
LOC: RAD 10:11
PROVIDERS: ATTEND Nurse Practitioner Adult Health
DX: C22.0 Liver cell carcinoma (principal)
CPT/HCPCS: 74183

== ENCOUNTER 2016-12-03 06:45 | Day surgery (SDC) | payer MEDICARE, MEDICAID ==
[2016-12-03] VITALS (12 sets, daily range): BP systolic 114–155; BP diastolic 56–73
[~2016-12-03] VITALS: Ht 165.1 cm; Wt 99.8 kg
[~2016-12-03 06:45] MED LIST changes: -GADOXETATE 2.5 MMOL/10 ML (EOVIST) IV ONE
--- OUTSIDE RECORDS SUMMARY | 2016-12-03 06:48 | XMS REPORT | Encounter Summary ---
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 [place], [place] [id number] Social History Tobacco Use Types Packs/Day Years Used Date Never Smoker Smokeless Tobacco: Never Used Alcohol Use Drinks/Week oz/Week Comments No Sex Assigned at Date Recorded Not on file as of this encounter Plan of Treatment Not on fileas of this encounter Visit Diagnoses Not on filein this encounter
--- OUTSIDE RECORDS SUMMARY | 2016-12-03 06:48 | XMS REPORT | Encounter Summary ---
Author Author [facility] Organization [facility] Address Unknown Phone Unavailable Care Team Providers Care Flake [employer] Name Role Phone PCP Unavailable Encounter Details Date Type Department Care Team Description 10/20/2016 Pre/Post [facility] Haley Lackey RN Procedure Hospital Radiology [address] [facility] [address] [place] [address] Social History Tobacco Use Types Packs/Day Years Used Date Never Smoker Smokeless Tobacco: Never Used Alcohol Use Drinks/Week oz/Week Comments No Sex Assigned at Date Recorded Not on file as of this encounter Progress Notes * Haley Lackey RN - 10/20/2016 11:58 AM CDT Interventional Radiology Progress Note S/p TACE/MWA on 10/17/16. Follow up call made to patient. Spoke with patient's who states he is doing well. She states he is without complaints at this time. She verbalized having a hard time keeping him inside as he is wanting to go work in the yard. Procedure reports and discharge note faxed to Dr. Megan Gabriel's office. Spoke with [facility] regarding follow up recommendation. Follow up to be scheduled in [place] in 1 month. Haley Lackey RN in this encounter Plan of Treatment Not on fileas of this encounter Visit Diagnoses Not on filein this encounter
--- OUTSIDE RECORDS SUMMARY | 2016-12-03 06:48 | XMS REPORT | Clinical Summary ---
Author Author [facility] Organization [facility] Address Unknown Phone Unavailable Care Team Providers Care Payloader Operator Name Role Phone PCP Unavailable Source Comments Some departments are not documenting in the electronic medical record. If you do not see the information that you expected, contact Release of Information in the Health Information Management department at [phone] for further assistance in locating additional records.[facility] Allergies No Known Allergies Current Medications Prescription Sig. Disp. Refills Start End Date Status Date ferrous sulfate (FEOSOL, Take 325 mg by mouth Active FEROSUL) 325 mg (65 mg daily. Take on an empty iron) tablet stomach at least 1 hour before or 2 hours after food. pregabalin (LYRICA) 100 Take 100 mg by mouth Active mg capsule twice daily. glimepiride (AMARYL) 1 mg Take 1 mg by mouth daily Active tablet with breakfast. metFORMIN-ER(+) Take 1,000 mg by mouth Active (FORTAMET) 1,000 mg daily with dinner. extended release tablet levothyroxine (SYNTHROID) Take 88 mcg by mouth Active 88 mcg tablet daily 30 minutes before breakfast. oxyCODONE (ROXICODONE, Take 1-2 Tabs by mouth 30 Tab 0 10/18/19 Active OXY-IR) 5 mg tablet every 4 hours as needed 17 ondansetron (ZOFRAN) 4 mg Take 1-2 Tabs by mouth 20 Tab 1 10/18/19 Active tablet every 6 hours as needed. 17 Active Problems Problem Noted Date Pain 10/17/2016 Encounters Date Type Specialty Care Team Description 10/20/2016 Pre/Post Radiology Haley Lackey RN Procedure 10/17/2016 [facility] Raza Torres MD Pain - Encounter Megan Gabriel MD 10/18/2016 Keiko Loyd RN Collins, Zachary S, MD 10/17/2016 [facility] Radiology Megan Gabriel MD Encounter Evelia Patel RN Melvin, Lorie Collins, Zachary S, MD 10/17/2016 Procedure Pass 10/17/2016 Orders Only Pete Burton MD 10/17/2016 Ancillary Radiology Cam Yanez MD Hepatocellular carcinoma Orders (HCC) 10/17/2016 Orders Only Pete Burton MD 10/02/2016 Anesthesia Radiology Pete Burton Event MD 10/02/2016 Telephone Radiology Eli Miller RN 09/29/2016 Orders Only Radiology Cam Yanez MD 09/26/2016 Orders Only Radiology Haley Lackey RN Hepatocellular carcinoma (HCC) (Primary Dx) 09/24/2016 [facility] Radiology Megan Gabriel MD Encounter 09/19/2016 Orders Only Radiology Haley Lackey RN Hepatocellular carcinoma (HCC) (Primary Dx) 09/18/2016 Telephone Radiology Haley Lackey RN 09/12/2016 Telephone Radiology Haley Lackey RN 09/10/2016 Telephone Radiology Haley Lackey RN 09/09/2016 Telephone Radiology Haley Lackey RN 09/09/2016 Orders Only Radiology Haley Lackey RN Hepatocellular carcinoma (HCC) (Primary Dx) 09/04/2016 Ancillary Radiology Outpatient, Radiologist Diagnosis unknown Orders (Primary Dx) 09/04/2016 Orders Only Radiology Haley Lackey RN Hepatocellular carcinoma (HCC) (Primary Dx) 09/04/2016 Telephone Radiology Haley Lackey RN from Last 3 Months Social History Tobacco Use Types Packs/Day Years Used Date Never Smoker Smokeless Tobacco: Never Used Alcohol Use Drinks/Week oz/Week Comments No Sex Assigned at Date Recorded Not on file Last Filed Vital Signs Vital Sign Reading Time Taken Blood Pressure 109/54 10/18/2016 8:00 AM CDT Pulse 73 10/18/2016 8:00 AM CDT Temperature 36.4 C (97.6 F) 10/18/2016 8:00 AM CDT Respiratory Rate - - Oxygen Saturation 97% 10/18/2016 8:00 AM CDT Inhaled Oxygen - - Concentration Weight 99.8 kg (220 lb) 10/17/2016 7:00 PM CDT Height 165.1 cm (5' 5") 10/17/2016 7:00 PM CDT Body Mass Index 36.61 10/17/2016 7:00 PM CDT Plan of Treatment Health Maintenance Due Date Last Done Comments HEPATITIS C SCREENING 1954 PHYSICAL (COMPREHENSIVE) 1961 EXAM PERTUSSIS VACCINE 1965 TETANUS VACCINE 1971 COLORECTAL CANCER 01/20/2004 SCREENING SHINGLES VACCINE 2014 INFLUENZA VACCINE 12/14/2016 Implants Implanted Type Area Primary Teaching Assistant Device Expiration Model / Identifier Date Serial / Lot Lc Bead Aliya 70 - 150 Black Label - Liver BIOCOMPATIBLES [id number] 07/13/2017 [id number] / Sn/A INC-IR RADIOLOG 1151 N/A / Implanted: Qty: 2 on 10/17/2016 by [id number] Leonard Hernandez MD Device Closure 70cm 6fr Angio-Seal Right: [facility] [employer] 05/13/2017 [id number] / Vip .035in Vascular - Sn/A Femoral N/A / Implanted: Qty: 1 on 10/17/2016 by Artery [id number] Leonard Hernandez MD Results * CBC (10/18/2016 4:00 AM) Component Value Ref Range White Blood Cells 3.3 (L) 4.5 - 11.0 K/UL RBC 2.84 (L) 4.4 - 5.5 M/UL Hemoglobin 9.1 (L) 13.5 - 16.5 GM/DL Hematocrit 26.2 (L) 40 - 50 % MCV 92.1 80 - 100 FL MCH 32.2 26 - 34 PG MCHC 34.9 32.0 - 36.0 G/DL RDW 16.8 (H) 11 - 15 % Platelet Count 80 (L) 150 - 400 K/UL MPV 7.8 7 - 11 FL Specimen Performing Laboratory [facility] [address] [place] [address] * COMPREHENSIVE METABOLIC PANEL (10/18/2016 4:00 AM) Component Value Ref Range Sodium 134 (L) 137 - 147 MMOL/L Potassium 5.4 (H) 3.5 - 5.1 MMOL/L Chloride 108 98 - 110 MMOL/L Glucose 408 (H) 70 - 100 MG/DL Blood Urea Nitrogen 22 7 - 25 MG/DL Creatinine 1.18 0.4 - 1.24 MG/DL Calcium 7.9 (L) 8.5 - 10.6 MG/DL Total Protein 6.5 6.0 - 8.0 G/DL Total Bilirubin 0.6 0.3 - 1.2 MG/DL Albumin 3.0 (L) 3.5 - 5.0 G/DL Alk Phosphatase 61 25 - 110 U/L AST (SGOT) 45 (H) 7 - 40 U/L CO2 18 (L) 21 - 30 MMOL/L ALT (SGPT) 27 7 - 56 U/L Anion Gap 8 3 - 12 eGFR Non >60 >60 mL/min Comment: The eGFR is not validated for use in drug dosing adjustments. Continue to use estimated creatinine clearance per dosing reference text. Please contact the Clinical Pharmacist for questions. eGFR >60 >60 mL/min Comment: The eGFR is not validated for use in drug dosing adjustments. Continue to use estimated creatinine clearance per dosing reference text. Please contact the Clinical Pharmacist for questions. Specimen Performing Laboratory [facility] [address] [place] [address] * POC GLUCOSE (10/17/2016 6:09 PM) Only the most recent of 2 results within the time period is included. Component Value Ref Range Glucose, POC 267 (H) 70 - 100 MG/DL Specimen Performing Laboratory [facility] [address] [place] [address] * CT GUIDE FOR RF ABLATION PERC (10/17/2016 5:20 PM) Specimen Performing Laboratory [facility] RESULTS Impressions 1. Successful CT -guided Microwave Ablation of 1.8 cm segment 7 right hepatic dome lesion PLAN: Follow up cross-sectional imaging will be performed at 1 month, 3 months, 6 months, and 1 year for evaluation of treatment response and local control. I, Cam Yanez M.D, the attending radiologist, was present for the critical and beth portions of the procedure with a midlevel, resident, and/or fellow participating.Overlapping portions were non beth and I was immediately available.I interpret the critical and beth portion of this procedure to have been needle access. @TT Approved by Leonard Hernandez M.D. on 10/20/2016 5:22 PM By my electronic signature, I attest that I have personally reviewed the images for this examination and formulated the interpretations and opinions expressed in this report Finalized by Cam Yanez M.D. on 10/20/2016 5:23 PM. Dictated by Leonard Hernandez M.D. on 10/17/2016 6:32 PM. Narrative MICROWAVE ABLATION OF SEGMENT [address] GUIDANCE Operating Physician: Dr. Yanez and Dr. David Hernandez. Clinical History: Right hepatic lobe hepatocellular carcinoma. Technique: Informed consent was obtained after the alternatives, benefits, and risks of the procedure were explained with emphasis on the specific risks of infection, bleeding, and injury to the liver or surrounding structures. With the patient in the supine position, under general anesthesia, the right upper quadrant was scrubbed and draped in the usual aseptic manner. Preliminary CT scan demonstrates a 1.8 cm lesion in the right hepatic dome, targeted for percutaneous biopsy. Under CT guidance, an Emprint 15-gauge microwave ablation antenna was advanced to the central aspect of the tumor located in segment 7 of the liver. Microwave ablation was performed at 100 kim for 6 minutes resulting in an approximate spherical treatment region of 3.5 cm. The tract was then sequential ablated as the probe was being removed. Follow-up CT exam revealed no perihepatic hematoma or pneumothorax. The patient tolerated this procedure well and was transferred to the recovery room in stable condition. Procedure Note Interface, Radiant Results - 10/20/2016 5:26 PM CDT MICROWAVE ABLATION OF SEGMENT [address] GUIDANCE Operating Physician: Dr. Yanez and Dr. David Hernandez. Clinical History: Right hepatic lobe hepatocellular carcinoma. Technique: Informed consent was obtained after the alternatives, benefits, and risks of the procedure were explained with emphasis on the specific risks of infection, bleeding, and injury to the liver or surrounding structures. With the patient in the supine position, under general anesthesia, the right upper quadrant was scrubbed and draped in the usual aseptic manner. Preliminary CT scan demonstrates a 1.8 cm lesion in the right hepatic dome, targeted for percutaneous biopsy. Under CT guidance, an Emprint 15-gauge microwave ablation antenna was advanced to the central aspect of the tumor located in segment 7 of the liver. Microwave ablation was performed at 100 kim for 6 minutes resulting in an approximate spherical treatment region of 3.5 cm. The tract was then sequential ablated as the probe was being removed. Follow-up CT exam revealed no perihepatic hematoma or pneumothorax. The patient tolerated this procedure well and was transferred to the recovery room in stable condition. IMPRESSION 1. Successful CT -guided Microwave Ablation of 1.8 cm segment 7 right hepatic dome lesion PLAN: Follow up cross-sectional imaging will be performed at 1 month, 3 months, 6 months, and 1 year for evaluation of treatment response and local control. Cam Hernandez M.D, the attending radiologist, was present for the critical and beth portions of the procedure with a midlevel, resident, and/or fellow participating. Overlapping portions were non beth and I was immediately available. I interpret the critical and beth portion of this procedure to have been needle access. @TT Approved by Leonard Hernandez M.D. on 10/20/2016 5:22 PM By my electronic signature, I attest that I have personally reviewed the images for this examination and formulated the interpretations and opinions expressed in this report Finalized by Cam Yanez M.D. on 10/20/2016 5:23 PM. Dictated by Leonard Hernandez M.D. on 10/17/2016 6:32 PM. * IR BODY EMBOLIZATION (10/17/2016 11:57 AM) Specimen Performing Laboratory [facility] RESULTS Impressions 1.Successful selective chemoembolization of anterior right hepatic 1.8 cm segment 7 tumor as described. Cam Hernandez M.D, the attending radiologist, was present for the critical and beth portions of the procedure with a midlevel, resident, and/or fellow participating.Overlapping portions were non beth and I was immediately available.I interpret the critical and beth portion of this procedure to have been needle access. @TT Approved by Leonard Hernandez M.D. on 10/20/2016 5:32 PM By my electronic signature, I attest that I have personally reviewed the images for this examination and formulated the interpretations and opinions expressed in this report Finalized by Cam Yanez M.D. on 10/20/2016 5:34 PM. Dictated by Leonard Hernandez M.D. on 10/17/2016 6:30 PM. Narrative Ultrasound and fluoroscopic guided transarterial chemoembolization with doxorubicin eluting beads 1. Celiac axis arteriogram 2. Common hepatic arteriogram 3. Right hepatic arteriogram 4. Selective anterior segment right hepatic artery. 5. Selective chemoembolization anterior segment right hepatic artery. 6. Postembolization arteriogram of right hepatic artery. 7. Right common femoral arteriogram. INDICATION: Right hepatic dome 1.8 cm hepatocellular carcinoma. Patient presents for chemoembolization of liver lesions. MEDICATIONS: I was personally responsible for the administration of moderate sedation services during the procedure performed and I confirm requirements described in CPT section on moderate sedation were followed, including the use of an independent trained observer who had no other duties during the procedure. The total supervised sedation time was 108 minutes.See nursing log for complete details; the drugs utilized were:Versed 5 mg IV, fentanyl 200 ug IV , OPERATING PHYSICIAN:Dr. Yanez and Dr. David Hernandez. CONTRAST: 185 cc's of Isovue 300 ACCESS SITE: Right common femoral artery PROCEDURE: The risks, benefits, and alternatives to the procedure and sedation were explained to the patient, and written informed consent obtained. With the patient in the supine position, the right groin was scrubbed and draped in the usual aseptic manner. The skin and subcutaneous tissue overlying the right common femoral artery were infiltrated with 2% lidocaine for local anesthetic. Under direct ultrasound guidance, the common femoral artery was accessed with a micropuncture needle. An ultrasound image was stored to PACS. A 0.018 wire was advanced through the needle into the artery. The needle was exchanged for 5 Indonesian transitional catheter. The wire and inner dilator were removed and 0.035 Bentson wire was advanced to the artery. The transitional catheter was exchanged for a 5 Indonesian vascular sheath attached to a heparinized , pressurized bag of saline. A 5 Indonesian SOS Omni catheter was advanced over the Bentson wire and used to select the superior mesenteric artery. Digital subtraction angiography was performed.Next, the 5 Indonesian SOS Omni catheter was advanced over the Bentson wire and used to select the celiac trunk. Digital subtraction angiography was performed. A 3 Indonesian ProGreat microcatheter was advanced over a 0.018" wire coaxially through the macrocatheter into the proper hepatic artery distal to the origin of the gastroduodenal artery and a corresponding arteriogram was obtained. The catheter was further subselectively advanced in the right hepatic lobe and a corresponding arteriogram was obtained. Subsequently, the microcatheter was advanced over a microwire into the anterior segment of the right hepatic artery and a diagnostic subtraction angiography was performed. Subsequently this anterior segment was embolized using a 70-150 micron LC Beads coated with Doxorubicin. Post-embolization arteriogram of the right hepatic artery was performed. The catheter was then removed and disposed of appropriately. Angio-Seal closure device as well as manual compression was utilized to obtain hemostasis. The patient tolerated the procedure well and left the angiography suite in stable condition without any immediate postprocedural complications. Conscious sedation was provided for the patient's comfort. FINDINGS: 1. Diagnostic angiography was performed to evaluate for extrahepatic vascular supply, extent of disease, and tumor progression since most recent cross- sectional imaging.Celiac axis arteriogram demonstrates conventional branching pattern. Neoplastic blush is noted in the right hepatic dome corresponding to patient's known hepatocellular carcinoma. 2. Common hepatic arteriogram demonstrates demonstrates conventional branching pattern. Right hepatic dome lesion is again noted. 3. Right hepatic arteriogram demonstrates neoplastic blush in the right hepatic dome corresponding to patient's known segment 7 hepatocellular carcinoma. There is further delineation of the vascular anatomy. 4. Segmental chemoembolization of anterior segment of the right hepatic artery with approximately 75 mg Doxorubicin. 5. Postembolization arteriogram of the right hepatic artery demonstrates decreased flow to the targeted lesions. 6. The right common femoral artery is widely patent with appropriate sheath insertion site. INTERVENTION: Chemoembolization of the right hepatic artery using a LC Beads coated with Doxorubicin. Procedure Note Interface, Radiant Results - 10/20/2016 5:37 PM CDT Ultrasound and fluoroscopic guided transarterial chemoembolization with doxorubicin eluting beads 1. Celiac axis arteriogram 2. Common hepatic arteriogram 3. Right hepatic arteriogram 4. Selective anterior segment right hepatic artery. 5. Selective chemoembolization anterior segment right hepatic artery. 6. Postembolization arteriogram of right hepatic artery. 7. Right common femoral arteriogram. INDICATION: Right hepatic dome 1.8 cm hepatocellular carcinoma. Patient presents for chemoembolization of liver lesions. MEDICATIONS: I was personally responsible for the administration of moderate sedation services during the procedure performed and I confirm requirements described in CPT section on moderate sedation were followed, including the use of an independent trained observer who had no other duties during the procedure. The total supervised sedation time was 108 minutes. See nursing log for complete details; the drugs utilized were: Versed 5 mg IV, fentanyl 200 ug IV, OPERATING PHYSICIAN: Dr. Yanez and Dr. David Hernandez. CONTRAST: 185 cc's of Isovue 300 ACCESS SITE: Right common femoral artery PROCEDURE: The risks, benefits, and alternatives to the procedure and sedation were explained to the patient, and written informed consent obtained. With the patient in the supine position, the right groin was scrubbed and draped in the usual aseptic manner. The skin and subcutaneous tissue overlying the right common femoral artery were infiltrated with 2% lidocaine for local anesthetic. Under direct ultrasound guidance, the common femoral artery was accessed with a micropuncture needle. An ultrasound image was stored to PACS. A 0.018 wire was advanced through the needle into the artery. The needle was exchanged for 5 Indonesian transitional catheter. The wire and inner dilator were removed and 0.035 Bentson wire was advanced to the artery. The transitional catheter was exchanged for a 5 Indonesian vascular sheath attached to a heparinized , pressurized bag of saline. A 5 Indonesian SOS Omni catheter was advanced over the Bentson wire and used to select the superior mesenteric artery. Digital subtraction angiography was performed. Next, the 5 Indonesian SOS Omni catheter was advanced over the Bentson wire and used to select the celiac trunk. Digital subtraction angiography was performed. A 3 Indonesian ProGreat microcatheter was advanced over a 0.018" wire coaxially through the macrocatheter into the proper hepatic artery distal to the origin of the gastroduodenal artery and a corresponding arteriogram was obtained. The catheter was further subselectively advanced in the right hepatic lobe and a corresponding arteriogram was obtained. Subsequently, the microcatheter was advanced over a microwire into the anterior segment of the right hepatic artery and a diagnostic subtraction angiography was performed. Subsequently this anterior segment was embolized using a 70-150 micron LC Beads coated with Doxorubicin. Post-embolization arteriogram of the right hepatic artery was performed. The catheter was then removed and disposed of appropriately. Angio-Seal closure device as well as manual compression was utilized to obtain hemostasis. The patient tolerated the procedure well and left the angiography suite in stable condition without any immediate postprocedural complications. Conscious sedation was provided for the patient's comfort. FINDINGS: 1. Diagnostic angiography was performed to evaluate for extrahepatic vascular supply, extent of disease, and tumor progression since most recent cross- sectional imaging. Celiac axis arteriogram demonstrates conventional branching pattern. Neoplastic blush is noted in the right hepatic dome corresponding to patient's known hepatocellular carcinoma. 2. Common hepatic arteriogram demonstrates demonstrates conventional branching pattern. Right hepatic dome lesion is again noted. 3. Right hepatic arteriogram demonstrates neoplastic blush in the right hepatic dome corresponding to patient's known segment 7 hepatocellular carcinoma. There is further delineation of the vascular anatomy. 4. Segmental chemoembolization of anterior segment of the right hepatic artery with approximately 75 mg Doxorubicin. 5. Postembolization arteriogram of the right hepatic artery demonstrates decreased flow to the targeted lesions. 6. The right common femoral artery is widely patent with appropriate sheath insertion site. INTERVENTION: Chemoembolization of the right hepatic artery using a LC Beads coated with Doxorubicin. IMPRESSION 1. Successful selective chemoembolization of anterior right hepatic 1.8 cm segment 7 tumor as described. I, Cam Yanez M.D, the attending radiologist, was present for the critical and beth portions of the procedure with a midlevel, resident, and/or fellow participating. Overlapping portions were non beth and I was immediately available. I interpret the critical and beth portion of this procedure to have been needle access. @TT Approved by Leonard Hernandez M.D. on 10/20/2016 5:32 PM By my electronic signature, I attest that I have personally reviewed the images for this examination and formulated the interpretations and opinions expressed in this report Finalized by Cam Yanez M.D. on 10/20/2016 5:34 PM. Dictated by Leonard Hernandez M.D. on 10/17/2016 6:30 PM. * CNC EVALUATION (09/24/2016 3:22 PM) Specimen Performing Laboratory [facility] RESULTS Narrative Consult Date: 09/24/2016 Planned Procedure(s):? TACE/MWA Indication:? Hepatocellular Carcinoma Chief Complaint:? HCC History of Present Illness: Gracie Lara is a 61 y.o. male with history of cryptogenic cirrhosis, splenomegaly, iron deficinet anemia and biopsy proven hepatocellular carcinoma.? Patient was seen by Dr. Megan Gabriel at [facility] for follow up for iron deficiency anemia.? Further workup with scanns showed cirrhosis , splenomegaly and patient was noted to have a 2 cm lesion in right hepatic lobe.? Biopsy was done 07/30/16 with pathology results showing for well-differentiated atypical hepatocellular carcinoma, suggestive of a well-differentiated hepatocellular carcinoma.? Liver function studies within normal limits.? AFP level drawn on 06/18/16 was normal at 2.7.?? Patient is not considered to be a good surgical candidate.? He has been referred to Dr. Yanez in IR for consultation and consideration for treatment with repeat biposy and ablation.? A telemedicine consult was done with the patient, his and Dr. Yanez.? The patient is deaf (since ) and? is able to read lips. He does know sign language (his does not) and is requesting a supervisor sign shop for the day of his procedure.? Risks and benefits of treatment plan discussed with the patient and his . Both verbalized understanding. Patient scheduled for TACE (with ALIYA beads) and MWA on October 02, 2016 @ 8AM.? A verbal consent was obtained from the patient at the time of the telemedicine consult.? ? Active Problems: ? * No active hospital problems. * Nursing Medical History? Nursing Surgical History? Past Medical History? Diagnosis?Date? ??Gastrointestinal disorder?cirrhosis cryptogenic? ??Cancer (HCC)?Cancer? ??Pancytopenia (HCC)?Arthritis?DM (diabetes mellitus) (HCC)?Splenomegaly?Hypertension?Anemia?Disorder of thyroid gland?Deaf?Leg swelling?? ? Past Surgical History? Procedure?Laterality?Date? ??Cholecystectomy?Liver biopsy??? Medications: For Outpatients and Same Day Surgery ? Current Outpatient Prescriptions? Medication?Sig? ??ferrous sulfate (FEOSOL, FEROSUL) 325 mg (65 mg iron) tablet?Take 325 mg by mouth daily. Take on an empty stomach at least 1 hour before or 2 hours after food.? ??glimepiride (AMARYL) 1 mg tablet?Take 1 mg by mouth daily with breakfast.? ??levothyroxine (SYNTHROID) 88 mcg tablet?Take 88 mcg by mouth daily 30 minutes before breakfast.? ??metFORMIN-ER(+) (FORTAMET) 1,000 mg extended release tablet?Take 1, 000 mg by mouth daily with dinner.? ??oxyCODONE (ROXICODONE, OXY-IR) 5 mg tablet?Take 1 Tab by mouth every 4 hours as needed for Pain? ??pregabalin (LYRICA) 100 mg capsule?Take 100 mg by mouth twice daily.? ?? No current facility-administered medications for this encounter.? Allergies:? Review of patient's allergies indicates no known allergies. ?? Social History Social History? ?? Social History? ??Marital Status:?N/A? ??Spouse Name:?Elayne? ??Number of Children:?N/A? ??Years of Education:?N/A? ?? Occupational History? ??Disabled? Social History Main Topics? ??Smoking status:?Never Smoker ? ??Smokeless tobacco:?Never Used? ??Alcohol Use:?No? ??Drug Use:?No? ??Sexual Activity:?Not on file? ?? Other Topics?Concern? ??Not on file? ?? Social History Narrative? ??No narrative on file? Family history reviewed; non-contributory Previous Anesthetic/Sedation History:? No Lab Tests: Labs: Outside labs from 08/29/[address] Gabriel's office Child Choe Score:? Will calculate when labs are received ECOG Performance Status:? 1 Imaging/Diagnostic Tests: Treatment Plan:? 61-year-old male with cryptogenic cirrhosis with 2 cm right hepatic lobe lesion. The majority of the time was spent discussing overall condition and treatment options. Patient was explained the various treatments available within the department of interventional radiology, including CT-guided microwave ablation, transarterial chemoembolization and Y-90 radioembolization. Will plan for combined CT-guided microwave ablation and transarterial chemoembolization as this would best treat this lesion. 1.? TACE (with ALIYA Beads)-conscious sedation/CT MWA (w/GA) scheduled 10/02/16 @ 8AM 2.? Labs to be faxed from Dr. Gabriel's office - spoke with SOLIS Munoz ( 3.? Patient will not be seen in [facility] 2/2 - lives out of town.? Phone triage assessement questions answered - No to all questions except +hypertension and diabetes. 4.? Patient has very limited resources for transportation so will see if niece is able to drive. Patient is unable to come the night before 5.? Will arrange for a supervisor sign shop 6.? Dr. Gabriel's office needs order for follow up imaging . Thank you for this consult, Cam Yanez M.D. Finalized by Cam Yanez M.D. on 09/26/2016 12:46 PM. Dictated by Cam Yanez M.D. on 09/26/2016 11:41 AM. Procedure Note Interface, Radiant Results - 09/26/2016 12:56 PM CDT Consult Date: 09/24/2016 Planned Procedure(s):? TACE/MWA Indication:? Hepatocellular Carcinoma Chief Complaint:? HCC History of Present Illness: Gracie Lara is a 61 y.o. male with history of cryptogenic cirrhosis, splenomegaly, iron deficinet anemia and biopsy proven hepatocellular carcinoma.? Patient was seen by Dr. Megan Gabriel at [facility] for follow up for iron deficiency anemia.? Further workup with scanns showed cirrhosis , splenomegaly and patient was noted to have a 2 cm lesion in right hepatic lobe.? Biopsy was done 07/30/16 with pathology results showing for well-differentiated atypical hepatocellular carcinoma, suggestive of a well-differentiated hepatocellular carcinoma.? Liver function studies within normal limits.? AFP level drawn on 06/18/16 was normal at 2.7.?? Patient is not considered to be a good surgical candidate.? He has been referred to Dr. Yanez in IR for consultation and consideration for treatment with repeat biposy and ablation.? A telemedicine consult was done with the patient, his and Dr. Yanez.? The patient is deaf (since ) and? is able to read lips. He does know sign language (his does not) and is requesting a supervisor sign shop for the day of his procedure.? Risks and benefits of treatment plan discussed with the patient and his . Both verbalized understanding. Patient scheduled for TACE (with ALIYA beads) and MWA on October 02, 2016 @ 8AM.? A verbal consent was obtained from the patient at the time of the telemedicine consult.? ? Active Problems: ? * No active hospital problems. * Nursing Medical History? Nursing Surgical History? Past Medical History? Diagnosis? Date? ?? Gastrointestinal disorder? cirrhosis cryptogenic? ?? Cancer (HCC)? Cancer? ?? Pancytopenia (HCC)? Arthritis? DM (diabetes mellitus) (HCC)? Splenomegaly? Hypertension? Anemia? Disorder of thyroid gland? Deaf? Leg swelling? ? ? Past Surgical History? Procedure? Laterality? Date? ?? Cholecystectomy? Liver biopsy? ? ? Medications: For Outpatients and Same Day Surgery ? Current Outpatient Prescriptions? Medication? Sig? ?? ferrous sulfate (FEOSOL, FEROSUL) 325 mg (65 mg iron) tablet? Take 325 mg by mouth daily. Take on an empty stomach at least 1 hour before or 2 hours after food.? ?? glimepiride (AMARYL) 1 mg tablet? Take 1 mg by mouth daily with breakfast.? ?? levothyroxine (SYNTHROID) 88 mcg tablet? Take 88 mcg by mouth daily 30 minutes before breakfast.? ?? metFORMIN-ER(+) (FORTAMET) 1,000 mg extended release tablet? Take 1,000 mg by mouth daily with dinner.? ?? oxyCODONE (ROXICODONE, OXY-IR) 5 mg tablet? Take 1 Tab by mouth every 4 hours as needed for Pain? ?? pregabalin (LYRICA) 100 mg capsule? Take 100 mg by mouth twice daily.? ?? No current facility-administered medications for this encounter.? Allergies:? Review of patient's allergies indicates no known allergies. ?? Social History Social History? ?? Social History? ?? Marital Status:? N/A? ? ? Spouse Name:? Elayne? ?? Number of Children:? N/A? ?? Years of Education:? N/A? ?? Occupational History? ?? Disabled? Social History Main Topics? ?? Smoking status:? Never Smoker ? ?? Smokeless tobacco:? Never Used? ?? Alcohol Use:? No? ?? Drug Use:? No? ?? Sexual Activity:? Not on file? ?? Other Topics? Concern? ?? Not on file? ?? Social History Narrative? ?? No narrative on file? Family history reviewed; non-contributory Previous Anesthetic/Sedation History:? No Lab Tests: Labs: Outside labs from 08/29/[address] Gabriel's office Child Choe Score:? Will calculate when labs are received ECOG Performance Status:? 1 Imaging/Diagnostic Tests: Treatment Plan:? 61-year-old male with cryptogenic cirrhosis with 2 cm right hepatic lobe lesion. The majority of the time was spent discussing overall condition and treatment options. Patient was explained the various treatments available within the department of interventional radiology, including CT-guided microwave ablation, transarterial chemoembolization and Y-90 radioembolization. Will plan for combined CT-guided microwave ablation and transarterial chemoembolization as this would best treat this lesion. 1.? TACE (with ALIYA Beads)-conscious sedation/CT MWA (w/GA) scheduled 10/02/16 @ 8AM 2.? Labs to be faxed from Dr. Gabriel's office - spoke with SOLIS Munoz ( 3.? Patient will not be seen in [facility] - 2/2 - lives out of town.? Phone triage assessement questions answered - No to all questions except +hypertension and diabetes. 4.? Patient has very limited resources for transportation so will see if niece is able to drive. Patient is unable to come the night before 5.? Will arrange for a supervisor sign shop 6.? Dr. Gabriel's office needs order for follow up imaging . Thank you for this consult, Cam Yanez M.D. Finalized by Cam Yanez M.D. on 09/26/2016 12:46 PM. Dictated by Cam Yanez M.D. on 09/26/2016 11:41 AM. from Last 3 Months
--- OUTSIDE RECORDS SUMMARY | 2016-12-03 06:49 | XMS REPORT | Encounter Summary ---
Author Author [facility] Organization [facility] Address Unknown Phone Unavailable Care Team Providers Care Sander Machine Name Role Phone PCP Unavailable Reason for Referral * Radiology Services Status Reason Specialty Diagnoses / Referred By Referred To Procedures Contact Contact No Auth Needed Radiology Diagnoses Megan Gabriel Bh2 Ir Hepatocellular [address] carcinoma (HCC) [address] [place] [id number] IR BODY Phone: Phone: EMBOLIZATION [phone] CHG ANGIOGRAPHY Fax: VISCERAL [phone] SLCTV/SUPRASLCTV RS&I AZ SLCTV CATHJ 3RD+ ORD SLCTV ABDL PEL/LXTR BRNCH CHG ANGRPH SLCTV EA VSL STUDIED AFTER BASIC XM RS&I AZ CHEMOTHERAPY ADMIN INTRA-ARTERIAL PUSH TQ AZ VASCULAR EMBOLIZE/OCCLUDE ORGAN TUMOR INFARCT * Radiology Services Status Reason Specialty Diagnoses / Referred By Referred To Procedures Contact Contact No Auth Needed Radiology Diagnoses Megan Gabriel Bh2 Ir Hepatocellular [address] carcinoma (HCC) [address] [place] [id number] IR BODY Phone: Phone: EMBOLIZATION [phone] CHG ANGIOGRAPHY Fax: VISCERAL [phone] SLCTV/SUPRASLCTV RS&I AZ SLCTV CATHJ 3RD+ ORD SLCTV ABDL PEL/LXTR BRNCH CHG ANGRPH SLCTV EA VSL STUDIED AFTER BASIC XM RS&I AZ CHEMOTHERAPY ADMIN INTRA-ARTERIAL PUSH TQ AZ VASCULAR EMBOLIZE/OCCLUDE ORGAN TUMOR INFARCT Reason for Visit * Auth/Cert Status Reason Specialty Diagnoses / Referred By Referred To Procedures Contact Contact Diagnoses P ain Encounter Details Date Type Department Care Team Description 10/17/2016 Hospital [facility] Megan Gabriel MD Encounter Hospital Radiology [address] [facility] [address] [address] [place] [address] [address] FLO[address] [phone] [place], [place] [id number] [phone] Evelia Braun RN M elvin, Lorie C ollins, Zachary S, MD [address] [facility] [address] [place] [address] Social History Tobacco Use Types Packs/Day Years Used Date Never Smoker Smokeless Tobacco: Never Used Alcohol Use Drinks/Week oz/Week Comments No Sex Assigned at Date Recorded Not on file as of this encounter Last Filed Vital Signs Vital Sign Reading Time Taken Blood Pressure 144/73 10/17/2016 3:00 PM CDT Pulse 90 10/17/2016 3:00 PM CDT Temperature 36.7 C (98.1 F) 10/17/2016 10:13 AM CDT Respiratory Rate - - Oxygen Saturation 96% 10/17/2016 3:00 PM CDT Inhaled Oxygen - - Concentration Weight - - Height - - Body Mass Index - - in this encounter Discharge Instructions * Patient Instructions - Evelia Patel, SARANYA - 10/17/2016 10:14 AM CDT INTERVENTIONAL RADIOLOGY DISCHARGE INSTRUCTIONS MICROWAVE ABLATION Microwave Ablation is aprocedure that heats and destroys cancer cells. Imaging techniques such as ultrasound, CT, or MRI are used to help guide a needle electrode intoa tumor. Microwave currents are then passed through the electrode creating heat that destroys the abnormal cells. At the same time , heat from the ablation energy closes small blood vessels and lessens the risk of bleeding.The tumor cells are gradually replaced by scar tissue that will shrink over time. Microwave ablation may cause shoulder pain or flu like symptoms usually lasting no more than3-5 days. POST-PROCEDURE ACTIVITY: A responsible adult must drive you home after the procedure. You should not drive or operate heavy machinery or do anything that requires concentration for at least 24 hours after receiving sedation or anesthesia. It is recommended that a responsible adult be with you until morning. Avoid lifting more than 5 lbs. for 1 week and avoid exercises that use your abdominal muscles. Also avoid pushing, pulling or straining. POST-PROCEDURE SITE CARE: You will have a small bandage over the site. Keep this dry. You may remove it in 24 hours. You may shower in 24 hours, after removing the bandage. Do not submerge the site underwater for 1 week (no swimming/hot tub, etc.) Be sure your hands are clean when touching near the site. Do not use ointments, creams or powders on the puncture site. DIET/MEDICATIONS: You may resume your previous diet 1-2 hours after the procedure. Avoid any foods or beverages containing alcohol for at least 24 hours after the procedure. Please see the Medication Reconciliation sheet for instructions on resuming your home medications. CALL THE DOCTOR IF: Bright red blood has soaked the bandage. You have severe pain not relieved by medication. Some soreness or tenderness at the site is to be expected for several days. You have persistent nausea or vomiting. You have signs of infection such as: Chills, fever greater than 101F, body aches, redness, swelling or warmth at the puncture site or pus draining from the site. You have new or worse belly swelling or bloating. You observe a dark color to your urine You develop yellow coloring to skin and eyes (jaundice). You or your caregiver should call 911 for any severe symptoms such as excessive bleeding, severe dizziness, trouble breathing or loss of consciousness. For problems or concerns related to the procedure, call [phone] from 7am- 5pm, Thursday-Thursday. After-hours and weekends, please call [phone] and ask for the Interventional Iron Cutter on-call. For procedures performed at the [facility], please call the Radiology dept. [phone], Thursday-Thursday, 8am-5pm. After hours and weekends, please call [phone] and ask for the Interventional Iron Cutter on-call. TRANSARTERIAL CHEMOEMBOLIZATION (TACE) Discharge Instructions In Transarterial Chemoembolization, the blood supply to a liver tumor is blocked or embolized with microscopic beads called embospheres and a chemotherapeutic agent is injected directly into one or more liver tumors causing them to shrink. During this procedure, a tiny catheter is placed in your femoral artery and then threaded into the arteries of your liver (as in an arteriogram) in order to deliver the chemoembolization to the tumor. POST-PROCEDURE ACTIVITY: A responsible adult must drive you home after the procedure. If you receive sedation or anesthesia, do not drive, operate heavy machinery or do anything that requires concentration for at least 24 hours. It is recommended that a responsible adult be with you until morning. Avoid any exertion for one week. Exertion is lifting over 10 lbs., pushing , pulling or straining. Avoid excessive bending, stooping, or stair climbing for 2 days. It is okay to go upstairs or bend over but take it slowly and keep it to a minimum. You may be up and about while relaxing at home as you recover. POST-PROCEDURE SITE CARE: You will have a bandage over the site. Keep this dry. You may remove it in 24 hours. You may shower in 24 hours after removing the bandage. Wash and dry the site gently. Do not submerge the site underwater for one week (no tub bath, swimming, hot tub, etc.) Do not use ointments, creams or powders on the puncture site. Be sure your hands are clean when touching near the site. Inspect the site daily. DIET/MEDICATIONS: You may resume your previous diet after the procedure. If you receive sedation or narcotic pain medications, avoid any foods or beverages containing alcohol for at least 24 hours. Please see the Medication Reconciliation sheet for instructions regarding resuming your home medications. WHEN TO CALL THE DOCTOR: If you have significant bleeding (more than a teaspoon) or swelling at the site (bigger than a golf ball), lie down, apply firm pressure to the site and call 911. Bleeding from a large vessel requires professional help. If you have signs of infection such as: Chills, body aches, fever greater than 101F, redness, swelling or warmth at the puncture site. If you have severe abdominal pain or swelling. If you have persistent nausea or vomiting. If you have soreness that continues for more than a week or unusual pain at the puncture site. It is common to have mild soreness or slight swelling at the site for up to 2 weeks. If you have numbness, tingling, weakness in the leg below the puncture site or your leg becomes cold and pale. You or your caregiver should call 911 for severe symptoms such as excessive bleeding, severe dizziness, chest pain, shortness of breath or loss of consciousness. To report any of the above problems or for any concerns related to the procedure , please call [phone] from 7am-5pm, Thursday-Thursday. After hours and weekends, please call [phone] and ask for the Interventional Iron Cutter on-call. in this encounter Medications at Time of Discharge Medication Sig. Disp. Refills Start Date End Date ferrous sulfate (FEOSOL, Take 325 mg by mouth FEROSUL) 325 mg (65 mg daily. Take on an empty iron) tablet stomach at least 1 hour before or 2 hours after food. glimepiride (AMARYL) 1 mg Take 1 mg by mouth daily tablet with breakfast. levothyroxine (SYNTHROID) Take 88 mcg by mouth 88 mcg tablet daily 30 minutes before breakfast. metFORMIN-ER(+) Take 1,000 mg by mouth (FORTAMET) 1,000 mg daily with dinner. extended release tablet pregabalin (LYRICA) 100 Take 100 mg by mouth mg capsule twice daily. oxyCODONE (ROXICODONE, Take 1-2 Tabs by mouth 30 Tab 0 09/26/2016 OXY-IR) 5 mg every 4 hours as needed tabletIndications: Hepatocellular carcinoma (HCC) oxyCODONE (ROXICODONE, Take 1 Tab by mouth every 10/18/2016 OXY-IR) 5 mg tablet 4 hours as needed for Pain as of this encounter Progress Notes * Rah Rose RN - 10/17/2016 12:51 PM CDT Doxorubicin given now. * Rah Rose RN - 10/17/2016 12:02 PM CDT Sedation physician present in room. Recent vitals and patient condition reviewed between sedating physician and nurse. Reassessment completed. Determination made to proceed with planned sedation. * Evelia Patel RN - 10/17/2016 10:53 AM CDT Nathan Vidal interpreting in this encounter Plan of Treatment Not on fileas of this encounter Results * IR BODY EMBOLIZATION (10/17/2016 11:57 AM) [...] artery. The needle was exchanged for 5 Honduran transitional catheter. The wire and inner dilator were removed and 0.035 Bentson wire was advanced to the artery. The transitional catheter was exchanged for a 5 [place]uran vascular sheath attached to a heparinized , pressurized bag of saline. A 5 [place]uran SOS Omni catheter was advanced over the Bentson wire and used to select the superior mesenteric artery. Digital subtraction angiography was performed.Next, the 5 [place]uran SOS Omni catheter was advanced over the Bentson wire and used to select the celiac trunk. Digital subtraction angiography was performed. A 3 [place]uran ProGreat microcatheter was advanced over a 0.018" [...] artery. The needle was exchanged for 5 [place]uran transitional catheter. The wire and inner dilator were removed and 0.035 Bentson wire was advanced to the artery. The transitional catheter was exchanged for a 5 [place]uran vascular sheath attached to a heparinized , pressurized bag of saline. A 5 [place]uran SOS Omni catheter was advanced over the Bentson wire and used to select the superior mesenteric artery. Digital subtraction angiography was performed. Next, the 5 [place]uran SOS Omni catheter was advanced over the Bentson wire and used to select the celiac trunk. Digital subtraction angiography was performed. A 3 [place] ProGreat microcatheter was advanced over a 0.018" [...] Leonard Hernandez M.D. on 10/17/2016 6:30 PM. in this encounter Visit Diagnoses Diagnosis Hepatocellular carcinoma (HCC) Malignant neoplasm of liver, primary in this encounter Administered Medications Medication Order MAR Action Action Date Dose Rate Site ampicillin/sulbactam (UNASYN) 3 g in Given - New 10/17/2016 3 g 100 mL/ hr sodium chloride 0.9% (NS) 100 mL IVPB Bag 11:23 CDT (MB+) 3 g, Intravenous, at 100 mL/hr, ONCE, 1 dose, Thu10/17/16 at 1000 DOXOrubicin (ADRIAMYCIN) 75 mg, drug Given 10/17/2016 eluting beads 70-150 (LC BEAD ALIYA) 2 12:51 CDT mL, iohexol (OMNIPAQUE-350) 18 mL 20 mL embolization syr 20 mL, Intra-arterial, ONCE, 1 dose, Thu10/17/16 at 1000, Hepatic Artery Embolization -- NURSING: To be administered by Chemotherapy Competency-validated nurse. NOTE: This is a HIGH ALERT Medication. famotidine (PEPCID) injection 20 mg Given 10/17/2016 20 mg 20 mg, Intravenous, ONCE, 1 dose, Thu 11:01 CDT 10/17/16 at 1000, DILUTE W/ 10ML NS OR D5W. GIVE IV PUSH OVER 2 MIN fentaNYL citrate PF (SUBLIMAZE) Given 10/17/2016 50 mcg injection 12:07 CDT INTRA-PROCEDURE MED, Starting Thu10/17/16 at 1207, Until Thu10/17/16 at 1207 fentaNYL citrate PF (SUBLIMAZE) Given 10/17/2016 50 mcg injection 12:22 CDT INTRA-PROCEDURE MED, Starting Thu10/17/16 at 1222, Until Thu10/17/16 at 1222 fentaNYL citrate PF (SUBLIMAZE) Given 10/17/2016 50 mcg injection 12:48 CDT INTRA-PROCEDURE MED, Starting Thu10/17/16 at 1248, Until Thu10/17/16 at 1248 fentaNYL citrate PF (SUBLIMAZE) Given 10/17/2016 50 mcg injection 50 mcg 11:49 CDT 50 mcg, Intravenous, ONCE, 1 dose, Thu10/17/16 at 1000, Pre-Procedure (IR) iopamidol 300 (ISOVUE-300) injection 185 Given 10/17/2016 185 mL mL 14:00 CDT 185 mL, Intra-arterial, ONCE, 1 dose, Thu10/17/16 at 1415, NOTE: This is a HIGH ALERT Medication. midazolam (VERSED) injection 1-2 mg Given 10/17/2016 1 mg 1-2 mg, Intravenous, ONCE, 1 dose, Thu 11:51 CDT 10/17/16 at 1000, Pre-Procedure (IR) midazolam (VERSED) injection Given 10/17/2016 1 mg INTRA-PROCEDURE MED, Starting Thu10/17/16 12:09 CDT at 1209, Until Thu10/17/16 at 1209 midazolam (VERSED) injection Given 10/17/2016 1 mg INTRA-PROCEDURE MED, Starting Thu10/17/16 12:24 CDT at 1224, Until Thu10/17/16 at 1224 midazolam (VERSED) injection Given 10/17/2016 1 mg INTRA-PROCEDURE MED, Starting Thu10/17/16 12:50 CDT at 1250, Until Thu10/17/16 at 1320 Given 10/17/2016 1 mg 13:20 CDT ondansetron (ZOFRAN) 16 mg, Given - 10/17/2016 240 mL/hr dexamethasone (DECADRON) 20 mg in sodium Bag 11:02 CDT chloride 0.9% (NS) 60 mL IVPB 60 mL, Intravenous, Administer over 15 Minutes, ONCE, 1 dose, Thu10/17/16 at 1000, Pre-Procedure (IR) sodium chloride 0.9 % infusion Given - 10/17/2016 150 mL/hr 1,000 mL, Intravenous, at 150 mL/hr, Bag 11:01 CDT CONTINUOUS, Starting Thu10/17/16 at 1000, Until Thu10/22/16 at 0205, Pre-Procedure (IR) Given - New Bag 10/17/2016 15:10 CDT Given - New Bag 10/17/2016 17:07 CDT sodium chloride 0.9 % infusion Given - 10/17/2016 500 mL 125 mL/ hr INTRA-PROCEDURE MED(CONT), Starting Thu Bag 12:02 CDT 10/17/16 at 1202, Until Thu10/17/16 at 1202 in this encounter
--- OUTSIDE RECORDS SUMMARY | 2016-12-03 06:49 | XMS REPORT | Encounter Summary ---
Author Author [facility] Organization [facility] Address Unknown Phone Unavailable Care Team Providers Care Statue Maker Name Role Phone PCP Unavailable Encounter Details Date Type Department Care Team Description 09/18/2016 Telephone [facility] Haley Lackey, SARANYA [facility] Radiology [address] [place] [address] Social History Tobacco Use Types Packs/Day Years Used Date Never Assessed Sex Assigned at Date Recorded Not on file as of this encounter Plan of Treatment Not on fileas of this encounter Visit Diagnoses Not on filein this encounter
--- OUTSIDE RECORDS SUMMARY | 2016-12-03 06:49 | XMS REPORT | Encounter Summary ---
Author Author [facility] Organization [facility] Address Unknown Phone Unavailable Care Team Providers Care Bond Runner Name Role Phone PCP Unavailable Encounter Details Date Type Department Care Team Description 10/02/2016 Telephone [facility] Eli Clancy RN [facility] Radiology [address] [facility] [address] [place], [place] [id number] Social History Tobacco Use Types Packs/Day Years Used Date Never Smoker Smokeless Tobacco: Never Used Alcohol Use Drinks/Week oz/Week Comments No Sex Assigned at Date Recorded Not on file as of this encounter Progress Notes * Eli Clancy RN - 10/02/2016 8:36 AM CDT Interventional Radiology Progress Note Spoke with patient's and stated patient became very agitated when coming to today for his IR procedure so she had to turn around and come home. Re- scheduled patient for October 17 and will call next week to see if patient is agreeable to procedure. Pt's verbalized understanding. Eli CLANCY RN in this encounter Plan of Treatment Not on fileas of this encounter Visit Diagnoses Not on filein this encounter
--- OUTSIDE RECORDS SUMMARY | 2016-12-03 06:49 | XMS REPORT | Encounter Summary ---
Author Author [facility] Organization [facility] Address Unknown Phone Unavailable Care Team Providers Care Group Exercise Instructor Name Role Phone PCP Unavailable Reason for Referral * Radiology Services Status Reason Specialty Diagnoses / Referred By Referred To Procedures Contact Contact No Auth Needed Radiology Diagnoses Megan Gabriel, Radiology Hepatocellular [address] carcinoma (HCC) 1 [place], [place] [address] [email or web address] Phone: CNC EVALUATION [facility] OFFICE/OUTPT [phone] VISIT,NEW,[facility] Fax: IV [phone] * Radiology Services Status Reason Specialty Diagnoses / Referred By Referred To Procedures Contact Contact No Auth Needed Radiology Diagnoses Megan Gabriel, Radiology Hepatocellular [address] carcinoma (HCC) 1 [place], [place] [address] [id number] Phone: CNC EVALUATION [place] OFFICE/OUTPT [phone] VISIT,[place] Fax: IV [phone] Reason for Visit * Radiology Services Status Reason Specialty Diagnoses / Referred By Referred To Procedures Contact Contact No Auth Needed Radiology Diagnoses Megan Gabriel, Radiology Hepatocellular [address] carcinoma (HCC) 1 [place], [place] [address] [id number] Phone: CNC EVALUATION [place] OFFICE/OUTPT [phone] VISIT,[place] Fax: IV [phone] Encounter Details Date Type Department Care Team Description 09/24/2016 Hospital [facility] Megan Gabriel MD Encounter Hospital Radiology 1 [facility] [address] [place] [address] [address] [phone] [place] [address] [phone] Social History Tobacco Use Types Packs/Day Years Used Date Never Smoker Smokeless Tobacco: Never Used Alcohol Use Drinks/Week oz/Week Comments No Sex Assigned at Date Recorded Not on file as of this encounter Medications at Time of Discharge [...] mg capsule twice daily. oxyCODONE (ROXICODONE, Take 1 Tab by mouth every 10/18/2016 OXY-IR) 5 mg tablet 4 hours as needed for Pain as of this encounter Plan of Treatment Not on fileas of this encounter Results * CNC EVALUATION (09/24/2016 3:22 PM) Specimen Performing Laboratory [facility] Narrative Consult Date: 09/24/2016 Planned Procedure(s):? TACE/MWA Indication:? Hepatocellular Carcinoma Chief Complaint:? HCC History of Present Illness: Gracie Lara is a 61 y.o. male with history of cryptogenic cirrhosis, splenomegaly, iron deficinet anemia and biopsy proven hepatocellular carcinoma.? Patient was seen by Dr. Megan Gabriel at [facility] for follow up for iron deficiency anemia.? [...] (his does not) and is requesting a parking lot signaler for the day of his procedure.? Risks [...] Gabriel's office - spoke with SOLIS Munoz [phone].? Patient will not be seen in [facility] 2/2 - lives out of town.? Phone triage assessement questions answered - No to all questions except +hypertension and diabetes. 4.? Patient has very limited resources for transportation so will see if niece is able to drive. Patient is unable to come the night before 5.? Will arrange for a parking lot signaler 6.? Dr. Gabriel's office needs order for [...] was seen by Dr. Megan Gabriel at [facility] for follow up for iron deficiency anemia.? [...] (his does not) and is requesting a parking lot signaler for the day of his procedure.? Risks [...] 3.? Patient will not be seen in [facility] - 2/2 - lives out of town.? Phone triage assessement questions answered - No to all questions except +hypertension and diabetes. 4.? Patient has very limited resources for transportation so will see if niece is able to drive. Patient is unable to come the night before 5.? Will arrange for a parking lot signaler 6.? Dr. Gabriel's office needs order for follow up imaging . Thank you for this consult, Cam Yanez M.D. Finalized by Cam Yanez M.D. on 09/26/2016 12:46 PM. Dictated by Cam Yanez M.D. on 09/26/2016 11:41 AM. in this encounter Visit Diagnoses Diagnosis Hepatocellular carcinoma (HCC) Malignant neoplasm of liver, primary in this encounter
--- OUTSIDE RECORDS SUMMARY | 2016-12-03 06:49 | XMS REPORT | Encounter Summary ---
Author Author [facility] Organization [facility] Address Unknown Phone Unavailable Care Team Providers Care Brace Maker Name Role Phone PCP Unavailable Encounter Details Date Type Department Care Team Description 09/26/2016 Orders Only [facility] Haley Lackey RN Hepatocellular carcinoma Hospital Radiology (HCC) (Primary Dx) [address] [facility] [address] [place] [address] Social History Tobacco Use Types Packs/Day Years Used Date Never Smoker Smokeless Tobacco: Never Used Alcohol Use Drinks/Week oz/Week Comments No Sex Assigned at Date Recorded Not on file as of this encounter Plan of Treatment Name Priority Associated Diagnoses Order Schedule CBC Routine Hepatocellular carcinoma Expected: 10/16/2016 (HCC) (Approximate), Expires: 09/26/2017 COMPREHENSIVE METABOLIC PANEL Routine Hepatocellular carcinoma Expected : 10/16/2016 (HCC) (Approximate), Expires: 09/26/2017 as of this encounter Visit Diagnoses Diagnosis Hepatocellular carcinoma (HCC) - Primary Malignant neoplasm of liver, primary in this encounter
--- OUTSIDE RECORDS SUMMARY | 2016-12-03 06:49 | XMS REPORT | Encounter Summary ---
Author Author [facility] Organization [facility] Address Unknown Phone Unavailable Care Team Providers Care Gsa Coordinator Name Role Phone PCP Unavailable Reason for Visit * Auth/Cert Status Reason Specialty Diagnoses / Referred By Referred To Procedures Contact Contact Diagnoses P ain Encounter Details Date Type Department Care Team Description 10/17/2016 Hospital Cardiothor Prgrsv Raza Sarmiento MD Pain - Encounter [address] 10/18/2016 [place] [address] [address] [place] [address] [phone] Megan Galeano MD 1 [place] [address] [phone] Keiko Bosch RN C ollins, Zachary S, MD [address] [place] [address] [phone] Social History Tobacco Use Types Packs/Day Years [...] Mass Index 36.61 10/17/2016 7:00 PM CDT in this encounter Discharge Summaries * Washington Cox MD - 10/18/2016 11:52 AM CDT Formatting of this note may be different from the original. Physician Discharge Summary Name: Gracie Garcia Date Of : 1955 Age: 61 years Admit date: 10/17/2016 Discharge date: 10/18/2016 Attending Physician: Raza Torres Service: Interventional Radiology Physician Summary completed by: Washington Cox MD Reason for hospitalization: Pain Control following Microwave ablation of liver mass. Significant PMH: Past Medical History: Diagnosis Date Anemia Arthritis Cancer (HCC) Cancer Deaf Disorder of thyroid gland DM (diabetes mellitus) (HCC) Gastrointestinal disorder cirrhosis cryptogenic Hypertension Leg swelling Pancytopenia (HCC) Splenomegaly Allergies: Review of patient's allergies indicates no known allergies. Admission Physical Exam notable for: Abdominal Pain Admission Lab/Radiology studies notable for: Nothing Brief Hospital Course: The patient was admitted and the following issues were addressed during this hospitalization: Patient had uncontrolled abdominal pain in the IR pre/post area following percutaneous MWA ablation of a mass in the dome of the liver. Pain following this procedure is expected given the mass's subdiaphragmatic location. The patient was hospitalized and started on a pain regimen and IV fluids. He had no complaints overnight. The following morning the patient reports complete resolution of his pain. Condition at Discharge: Stable Discharge Diagnoses: Hepatocellular Carcinoma Hospital Problems Active Problems Pain Surgical Procedures: TACE and CT Guided Microwave Ablation of the liver mass. Significant Diagnostic Studies and Procedures: none Consults: None Patient Disposition: Home Patient instructions/medications: Continue with previously schedule follow up Imaging for liver to evaluation response to therapy. The patient should have a repeat imaging study ( CT or MRI ) in 1 month Pending items needing follow up: None Signed: Washington Cox MD 10/18/2016 cc: Primary Care Physician: Na No PCP PCP Unknown Referring physicians: Megan Gabriel MD Additional provider(s): Discharge Diet: Full Discharge Activity: As tolerated, no limitations Discharge Medication: Continue all outpatient medications as previously prescribed. No new prescriptions. Follow Up Appointments: Imaging Follow Up in 1 month for re-evaluation of Microwave ablation in the liver. in this encounter Medications at Time of [...] mg daily with dinner. extended release tablet ondansetron (ZOFRAN) 4 mg Take 1-2 Tabs by mouth 20 Tab 1 10/17/2016 tablet every 6 hours as needed. oxyCODONE (ROXICODONE, Take 1-2 Tabs by mouth 30 Tab 0 10/17/2016 OXY-IR) 5 mg tablet every 4 hours as needed pregabalin (LYRICA) 100 Take 100 mg by mouth mg capsule twice daily. as of this encounter Progress Notes * Marcela Epstein RN - 10/18/2016 1:00 PM CDT Reviewed dc instructions with pt/ with assistance of video remote interpretor ( sign language). Pt v/u of all medications, restrictions, signs to call for, diet and follow up. PIV dc'd. All belongings sent with pt at this time. Pt to lobby via w/c and nurse tech. * Marcela Epstein RN - 10/18/2016 9:25 AM CDT Assessment completed. VSS, pt denies pain/soa/nausea at this time. Incisions with gauze/tegaderm in place. Pt anticipates dc home today. at bedside, will monitor. * Candace Davis RN - 10/18/2016 6:08 AM CDT Assumed pt care at 2115. Assessments complete. Bedside sample room supervisor for sign language present for initial assessment. A&Ox4. VSS. Tolerating RA. SR on tele. No pain or N/V. Adequate UOP. Fluids running per provider order. Pt up x1, fall bundle in place. Call light within reach. Will continue to monitor and pass on to day RN. * Tish Teran RN - 10/17/2016 5:55 PM CDT 1755: Paged Dr. aYnez. 1809: Dr. Sherman (vice president of human resources) paged regarding high blood sugar of 267. 1825: Dr. Hernandez returning page. Ordered toradol and rate change for normal saline on the floor. Will continue to assess and monitor. 184: Report given to Cate Gold RN on MPP. * Tish Teran RN - 10/17/2016 5:35 PM CDT Due to language barrier, a design architect was present in the PACU. Mill Operator Helper mode: In Person Mill Operator Helper/ ID Number: Nathan Vidal * Salud Anderson RN - 10/17/2016 3:15 PM CDT Anesthesia is present and monitoring/managing pt's vitals, airway and medications. in this encounter Plan of Treatment Name Priority Associated Diagnoses Order Schedule CBC Routine Hepatocellular carcinoma Expected: 10/31/2016 (HCC) (Approximate), Expires: 10/17/2017 COMPREHENSIVE METABOLIC PANEL Routine Hepatocellular carcinoma Expected : 10/31/2016 (HCC) (Approximate), Expires: 10/17/2017 as of this encounter Results * CBC (10/18/2016 4:00 AM) Component [...] [place] Specimen Performing Laboratory MAIN LAB [address] [place] [address] * COMPREHENSIVE METABOLIC PANEL (10/18/2016 4:00 AM) [...] Clinical Pharmacist for questions. Specimen Performing Laboratory [facility] MAIN [facility] [address] [place] [address] * CT GUIDE FOR RF ABLATION PERC [...] Leonard Hernandez M.D. on 10/17/2016 6:32 PM. in this encounter Visit Diagnoses Diagnosis Hepatocellular carcinoma (HCC) Malignant neoplasm of liver, primary Pain Generalized pain in this encounter Admitting Diagnoses Diagnosis Pain in this encounter Administered Medications Medication Order MAR Action Action Date Dose Rate Site fentaNYL citrate PF (SUBLIMAZE) Given 10/17/2016 25 mcg injection 25 mcg 17:45 CDT 25 mcg, Intravenous, EVERY 5 MIN PRN, Starting Thu10/17/16 at 1737, Until Thu10/17/16 at 1813, Pain Injectable, For Pain Score < 4, Maximum total dose of 200 mcg Hold for RR < 10 Given 10/17/2016 25 mcg 17:50 CDT ferrous sulfate (FEOSOL, FEROSUL) tablet Given 10/17/2016 325 mg 325 mg 21:39 CDT 325 mg, Oral, DAILY, First dose on Thu10/17/16 at 1900, Until Discontinued, Each 325mg ferrous sulfate delivers 65mg elemental iron. Given 10/18/2016 325 mg 09:41 CDT glimepiride (AMARYL) tablet 1 mg Given 10/18/2016 1 mg 1 mg, Oral, DAILY WITH BREAKFAST, First 09:41 CDT dose on Thu10/17/16 at 1900, Until Discontinued, Give with a meal. HYDROcodone/acetaminophen (NORCO) 5/325 Given 10/17/2016 1 tablet mg tablet 1 Tab 21:39 CDT 1 Tab, Oral, EVERY 6 HOURS PRN, Starting Thu10/17/16 at 1827, Until 10/18/16 at 1551, Pain PO, TOTAL ACETAMINOPHEN DOSE NOT TO EXCEED 4GM DAILY NOTE: This is a HIGH ALERT Medication. HYDROmorphone injection (DILAUDID) Given 10/17/2016 0.5 mg syringe 0.5 mg 18:03 CDT 0.5 mg, Intravenous, EVERY 10 MIN PRN, Starting Thu10/17/16 at 1737, Until 10/18/16 at 1551, Pain Injectable, For Pain Score 4-6, Maximum total dose of 2 mg Hold for RR < 10 Given 10/17/2016 0.5 mg 18:12 CDT HYDROmorphone injection (DILAUDID) Given 10/17/2016 1 mg syringe 1 mg 17:52 CDT 1 mg, Intravenous, EVERY 10 MIN PRN, Starting Thu10/17/16 at 1737, Until 10/18/16 at 1551, Pain Injectable, For Pain Score 7-10, Maximum total dose of 2 mg Hold for RR < 10 ketorolac (TORADOL) injection 30 mg Given 10/17/2016 30 mg 30 mg, Intravenous, ONCE, 1 dose, Thu 19:10 CDT 10/17/16 at 1830, Please note: this medication will be automatically discontinued 5 days after ordered per hospital policy. Please obtain a new order if the medication needs to be continued. levothyroxine (SYNTHROID) tablet 88 mcg Given 10/18/2016 88 mcg 88 mcg, Oral, DAILY 30MIN BEFORE 06:56 CDT BREAKFAST, First dose on 10/18/16 at 0630, Until Discontinued, Give 1 hour before a meal. If patient is receiving tube feedings, hold tube feed 1hr before and 1hr after dose. oxyCODONE (ROXICODONE, OXY-IR) tablet Given 10/17/2016 10 mg 5-10 mg 19:20 CDT 5-10 mg, Oral, EVERY 4 HOURS PRN, Starting Thu10/17/16 at 1827, Until 10/18/16 at 1551, Pain PO Given 10/18/2016 10 mg 04:02 CDT Given 10/18/2016 10 mg 12:03 CDT pregabalin (LYRICA) capsule 100 mg Given 10/17/2016 100 mg 100 mg, Oral, TWICE DAILY, First dose on 21:39 CDT 10/17/16 at 2100, Until Discontinued Given 10/18/2016 100 mg 09:42 CDT sodium chloride 0.9 % infusion Given - New 10/17/2016 1,000 mL 125 mL/ hr 1,000 mL, 1,000 mL, Intravenous, at 125 Bag 20:49 CDT mL/hr, CONTINUOUS, Starting Thu10/17/16 at 1845, Until 10/18/16 at 1551 Given - New Bag 10/18/2016 1,000 mL 125 mL/hr 06:01 CDT in this encounter
--- OUTSIDE RECORDS SUMMARY | 2016-12-03 06:49 | XMS REPORT | Encounter Summary ---
Author Author [facility] Organization [facility] Address Unknown Phone Unavailable Care Team Providers Care Conservation Educator Name Role Phone PCP Unavailable Encounter Details Date Type Department Care Team Description 10/17/2016 Orders Only DEFAULT DEPT REG AREAS Pete Burton, [address] [place] [address] [address] [place], [place] [id number] Social History Tobacco Use Types Packs/Day Years Used Date Never Smoker Smokeless Tobacco: Never Used Alcohol Use Drinks/Week oz/Week Comments No Sex Assigned at Date Recorded Not on file as of this encounter Plan of Treatment Not on fileas of this encounter Results * POC GLUCOSE (10/17/2016 11:08 AM) Component Value Ref Range Glucose, POC 169 (H) 70 - 100 MG/DL Specimen Performing Laboratory [facility]IN [facility] [address] [place] [address] in this encounter Visit Diagnoses Not on filein this encounter
--- OUTSIDE RECORDS SUMMARY | 2016-12-03 06:49 | XMS REPORT | Encounter Summary ---
Author Author [facility] Organization [facility] Address Unknown Phone Unavailable Care Team Providers Care Curer Foam Rubber Name Role Phone PCP Unavailable Reason for Visit * Auth/Cert Status Reason Specialty Diagnoses / Referred By Referred To Procedures Contact Contact Diagnoses P ain Encounter Details Date Type Department Care Team Description 10/02/2016 [facility] [address] [place] [address] [place] [address] [phone] Social History Tobacco Use Types Packs/Day Years Used Date Never Smoker Smokeless Tobacco: Never Used Alcohol Use Drinks/Week oz/Week Comments No Sex Assigned at Date Recorded Not on file as of this encounter Plan of Treatment Not on fileas of this encounter Visit Diagnoses Not on filein this encounter Administered Medications Medication Order MAR Action Action Date Dose Rate Site dexamethasone (DECADRON) injection Given 10/17/2016 4 mg Intravenous, INTRA-PROCEDURE MED, 15:50 CDT Starting Thu10/17/16 at 1550, Until Thu10/17/16 at 1758, Nausea/Vomiting Injectable, Anesthesia Intra-op ePHEDrine 50 mg/mL 50 mg in sodium Given - New 10/17/2016 10 mg chloride PF 0.9% 5 mL IV syringe Bag 16:18 CDT 5 mL, INTRA-PROCEDURE MED(CONT), Starting Thu10/17/16 at 1618, Until Thu10/17/16 at 1758, Anesthesia Intra-op fentaNYL citrate PF (SUBLIMAZE) Given 10/17/2016 100 mcg injection 15:35 CDT INTRA-PROCEDURE MED, Starting Thu10/17/16 at 1520, Until Thu10/17/16 at 1758, Pain Injectable, Anesthesia Intra-op Given 10/17/2016 50 mcg 17:32 CDT Given 10/17/2016 50 mcg 17:33 CDT lidocaine (PF) injection Given 10/17/2016 60 mg INTRA-PROCEDURE MED, Starting Thu10/17/16 15:35 CDT at 1535, Until Thu10/17/16 at 1758, Anesthesia Intra-op midazolam (VERSED) injection Given 10/17/2016 2 mg Intravenous, INTRA-PROCEDURE MED, 15:10 CDT Starting Thu10/17/16 at 1510, Until Thu10/17/16 at 1758, Agitation Injectable, Anxiety Injectable, Anesthesia Intra-op ondansetron (ZOFRAN) injection Given 10/17/2016 4 mg Intravenous, INTRA-PROCEDURE MED, 17:07 CDT Starting Thu10/17/16 at 1707, Until Thu10/17/16 at 1758, Nausea/Vomiting Injectable, Anesthesia Intra-op phenylephrine (RUSSELL-SYNEPHRINE) 10 mg in Given - New 10/17/2016 0.2 27 mL /hr sodium chloride 0.9% (NS) 250 mL IV drip Bag 16:22 CDT mcg/kg/min (std conc) 10 mg 250 mL, INTRA-PROCEDURE MED(CONT), Starting Thu10/17/16 at 1622, Until Thu10/17/16 at 1758, Anesthesia Intra-op Dose/Rate Change 10/17/2016 0.1 13.5 mL/hr 16:40 CDT mcg/kg/min phenylephrine in NS Injection Given 10/17/2016 100 mcg Intravenous, INTRA-PROCEDURE MED, 15:55 CDT Starting Thu10/17/16 at 1551, Until Thu10/17/16 at 1758, Symptomatic Hypotension, Anesthesia Intra-op Given 10/17/2016 100 mcg 16:03 CDT Given 10/17/2016 100 mcg 16:09 CDT propofol (DIPRIVAN) injection Given 10/17/2016 150 mg INTRA-PROCEDURE MED, Starting Thu10/17/16 15:35 CDT at 1535, Until Thu10/17/16 at 1758, Anesthesia Intra-op rocuronium (ZEMURON) injection Given 10/17/2016 50 mg Intravenous, INTRA-PROCEDURE MED, 15:35 CDT Starting Thu10/17/16 at 1535, Until Thu10/17/16 at 1758, Anesthesia Intra-op sodium chloride 0.9 % infusion Given - New 10/17/2016 150 mL/hr 1,000 mL, Intravenous, at 150 mL/hr, Bag 11:01 CDT CONTINUOUS, Starting Thu10/17/16 at 1000, Until Thu10/22/16 at 0205, Pre-Procedure (IR) Given - New Bag 10/17/2016 15:10 CDT Given - New Bag 10/17/2016 17:07 CDT sugammadex (BRIDION) injection Given 10/17/2016 180 mg Intravenous, INTRA-PROCEDURE MED, 17:10 CDT Starting Thu10/17/16 at 1710, Until Thu10/17/16 at 1758, Anesthesia Intra-op in this encounter
--- OUTSIDE RECORDS SUMMARY | 2016-12-03 06:49 | XMS REPORT | Encounter Summary ---
Author Author [facility] Organization [facility] Address Unknown Phone Unavailable Care Team Providers Care Geriatric Nurse Assistant Name Role Phone PCP Unavailable Reason for Referral * Radiology Services Status Reason Specialty Diagnoses / Referred By Referred To Procedures Contact Contact No Auth Needed Radiology Diagnoses Cam Yanez 2 Ir Hepatocellular MD Lizbeth [address] carcinoma (HCC) [address] [place], [place] rocedures [address] [id number] [address] GUIDE FOR RF [place] Phone: ABLATION PERC [address] [place]BLATION Phone: CHG CT GUIDANCE [phone] &MONITORING VISC Fax: TISS ABLATION [phone] [place] ABLTJ 1/> LVR FADI PRQ RF Encounter Details Date Type Department Care Team Description 10/17/2016 Ancillary [facility] Cam Yanez MD Hepatocellular carcinoma [facility] Radiology [address] (HCC) [address] [place] [address] [place] [address] [phone] Social History Tobacco Use Types Packs/Day Years Used Date Never Smoker Smokeless Tobacco: Never Used Alcohol Use Drinks/Week oz/Week Comments No Sex Assigned at Date Recorded Not on file as of this encounter Plan of Treatment Not on fileas of this encounter Results * CT GUIDE FOR RF ABLATION PERC [...] radiologist, was present for the critical and bteh portions of the procedure with a midlevel, [...]
--- OUTSIDE RECORDS SUMMARY | 2016-12-03 06:49 | XMS REPORT | Encounter Summary ---
Author Author [facility] Organization [facility] Address Unknown Phone Unavailable Care Team Providers Care Business Records Manager Name Role Phone PCP Unavailable Reason for Referral * Radiology Services Status Reason Specialty Diagnoses / Referred By Referred To Procedures Contact Contact No Auth Needed Radiology Diagnoses Megan Gabriel, Radiology Hepatocellular MD [address] carcinoma (HCC) 1 [place] [address] rocedures [address] Phone: CNC EVALUATION [place] OFFICE/OUTPT [phone] VISIT,CONNIE SHELTON Fax: iv [phone] Encounter Details Date Type Department Care Team Description 09/19/2016 Orders Only [facility] Haley Lackey, SARANYA Hepatocellular carcinoma Hospital Radiology (HCC) (Primary Dx) [address] [place], [place] [id number] Social History Tobacco Use Types Packs/Day Years Used Date Never Assessed Sex Assigned at Date Recorded Not on file as of this encounter Plan of Treatment Not on fileas of this encounter Results * CNC EVALUATION (09/24/2016 3:22 PM) Specimen Performing Laboratory [facility] Narrative Consult Date: 09/24/2016 Planned Procedure(s):? TACE/MWA Indication:? Hepatocellular Carcinoma Chief Complaint:? HCC History of Present Illness: Gracie Garcia is a 61 y.o. male with history of cryptogenic cirrhosis, splenomegaly, iron deficinet anemia and biopsy proven hepatocellular carcinoma.? Patient was seen by Dr. Megan Gabriel at [facility] for follow up for iron deficiency anemia.? [...] (his does not) and is requesting a communication signals intelligence for the day of his procedure.? Risks [...] 3.? Patient will not be seen in [facility] - 2/2 - lives out of town.? Phone triage assessement questions answered - No to all questions except +hypertension and diabetes. 4.? Patient has very limited resources for transportation so will see if niece is able to drive. Patient is unable to come the night before 5.? Will arrange for a communication signals intelligence 6.? Dr. Gabriel's office needs order for [...] Complaint:? HCC History of Present Illness: Gracie Garcia is a 61 y.o. male with history of cryptogenic cirrhosis, splenomegaly, iron deficinet anemia and biopsy proven hepatocellular carcinoma.? Patient was seen by Dr. Megan Gabriel at [facility] for follow up for iron deficiency anemia.? [...] (his does not) and is requesting a communication signals intelligence for the day of his procedure.? Risks [...] 3.? Patient will not be seen in [facility] - 2/2 - lives out of town.? Phone triage assessement questions answered - No to all questions except +hypertension and diabetes. 4.? Patient has very limited resources for transportation so will see if niece is able to drive. Patient is unable to come the night before 5.? Will arrange for a communication signals intelligence 6.? Dr. Gabriel's office needs order for follow up imaging . Thank you for this consult, Cam Yanez M.D. Finalized by Cam Yanez M.D. on 09/26/2016 12:46 PM. Dictated by Cam Yanez M.D. on 09/26/2016 11:41 AM. in this encounter Visit Diagnoses Diagnosis Hepatocellular carcinoma (HCC) - Primary Malignant neoplasm of liver, primary in this encounter
--- OUTSIDE RECORDS SUMMARY | 2016-12-03 06:49 | XMS REPORT | Encounter Summary ---
Author Author [facility] Organization [facility] Address Unknown Phone Unavailable Care Team Providers Care Chute Tapper Name Role Phone PCP Unavailable Encounter Details Date Type Department Care Team Description 10/17/2016 Orders Only DEFAULT DEPT REG AREAS Pete Burton, [address] [place] [address] [address] [place], [place] [id number] Social History Tobacco Use Types Packs/Day Years Used Date Never Smoker Smokeless Tobacco: Never Used Alcohol Use Drinks/Week oz/Week Comments No Sex Assigned at Date Recorded Not on file as of this encounter Plan of Treatment Not on fileas of this encounter Results * POC GLUCOSE (10/17/2016 6:09 PM) Component Value Ref Range Glucose, POC 267 (H) 70 - 100 MG/DL Specimen Performing Laboratory [facility] [address] [place] [address] in this encounter Visit Diagnoses Not on filein this encounter
--- OUTSIDE RECORDS SUMMARY | 2016-12-03 06:49 | XMS REPORT | Encounter Summary ---
Author Author [facility] Organization [facility] Address Unknown Phone Unavailable Care Team Providers Care Set Up Mechanic Stamping Machines Name Role Phone PCP Unavailable Encounter Details Date Type Department Care Team Description 09/29/2016 Orders Only Cam Chester MD [address] [facility] [address] [place] [address] [place] [address] [place], [place] [id number] Social History Tobacco Use Types Packs/Day Years Used Date Never Smoker Smokeless Tobacco: Never Used Alcohol Use Drinks/Week oz/Week Comments No Sex Assigned at Date Recorded Not on file as of this encounter Plan of Treatment Not on fileas of this encounter Visit Diagnoses Not on filein this encounter
--- OUTSIDE RECORDS SUMMARY | 2016-12-03 06:50 | XMS REPORT | Encounter Summary ---
Author Author [facility] Organization [facility] Address Unknown Phone Unavailable Care Team Providers Care Culinary Internship Name Role Phone PCP Unavailable Reason for Referral * Radiology Services Status Reason Specialty Diagnoses / Referred By Referred To Procedures Contact Contact No Auth Needed Radiology Diagnoses Megan Gabriel, 2 [place] Hepatocellular [address] carcinoma (HCC) 1 [facility] [address]ND FLOOR [place], [place] rocedures [id number] IR BODY Phone: Phone: EMBOLIZATION [phone] CHG ANGIOGRAPHY Fax: VISCERAL [phone] SLCTV/SUPRASLCTV RS&I OK SLCTV CATHJ 3RD+ ORD SLCTV ABDL PEL/LXTR BRNCH CHG ANGRPH SLCTV EA VSL STUDIED AFTER BASIC XM RS&I OK CHEMOTHERAPY ADMIN INTRA-ARTERIAL PUSH TQ OK VASCULAR EMBOLIZE/OCCLUDE ORGAN TUMOR INFARCT Encounter Details Date Type Department Care Team Description 09/04/2016 Orders Only [facility] Haley Lackey, SARANYA Hepatocellular carcinoma [facility] Radiology (HCC) (Primary Dx) [address] [address] [facility] [facility] [address] [place] [address] Social History Tobacco Use Types Packs/Day Years Used Date Never Assessed Sex Assigned at Date Recorded Not on file as of this encounter Plan of Treatment Not on fileas of this encounter Results * IR BODY EMBOLIZATION (10/17/2016 11:57 AM) Specimen Performing Laboratory [facility] Impressions 1.Successful selective chemoembolization of anterior right hepatic 1.8 cm segment 7 tumor as described. ICam M.D, the attending radiologist, was present for [...] artery. The needle was exchanged for 5 Montenegrin transitional catheter. The wire and inner dilator were removed and 0.035 Bentson wire was advanced to the artery. The transitional catheter was exchanged for a 5 Montenegrin vascular sheath attached to a heparinized , pressurized bag of saline. A 5 Montenegrin SOS Omni catheter was advanced over the Bentson wire and used to select the superior mesenteric artery. Digital subtraction angiography was performed.Next, the 5 Montenegrin SOS Omni catheter was advanced over the Bentson wire and used to select the celiac trunk. Digital subtraction angiography was performed. A 3 Montenegrin ProGreat microcatheter was advanced over a 0.018" [...] artery. The needle was exchanged for 5 Montenegrin transitional catheter. The wire and inner dilator were removed and 0.035 Bentson wire was advanced to the artery. The transitional catheter was exchanged for a 5 Montenegrin vascular sheath attached to a heparinized , pressurized bag of saline. A 5 Montenegrin SOS Omni catheter was advanced over the Bentson wire and used to select the superior mesenteric artery. Digital subtraction angiography was performed. Next, the 5 Montenegrin SOS Omni catheter was advanced over the Bentson wire and used to select the celiac trunk. Digital subtraction angiography was performed. A 3 Montenegrin ProGreat microcatheter was advanced over a 0.018" [...]
--- OUTSIDE RECORDS SUMMARY | 2016-12-03 06:50 | XMS REPORT | Encounter Summary ---
Author Author [facility] Organization [facility] Address Unknown Phone Unavailable Care Team Providers Care Association Executive Name Role Phone PCP Unavailable Reason for Referral * Radiology Services Status Reason Specialty Diagnoses / Referred By Referred To Procedures Contact Contact Pending Review Radiology Diagnoses Megan Gabriel, [facility] Ir Hepatocellular [address] carcinoma (HCC) 1 [facility] 2[address] FLO[address] [place], [place] rocedures [address] CNC EVALUATION Phone: Phone: [place] OFFICE/OUTPT [phone] VISITNIKITA LEVL Fax: IV [phone] Encounter Details Date Type Department Care Team Description 09/09/[address] [facility] Haley Lackey RN Hepatocellular carcinoma Hospital Radiology (HCC) (Primary Dx) [address] [place] [address] Social History Tobacco Use Types Packs/Day Years Used Date Never Assessed Sex Assigned at Date Recorded Not on file as of this encounter Plan of Treatment Name Priority Associated Diagnoses Order Schedule CNC EVALUATION Routine Hepatocellular carcinoma Expected: 09/09/2016 (HCC) (Approximate), Expires: 09/09/2017 as of this encounter Visit Diagnoses Diagnosis Hepatocellular carcinoma (HCC) - Primary Malignant neoplasm of liver, primary in this encounter
--- OUTSIDE RECORDS SUMMARY | 2016-12-03 06:50 | XMS REPORT | Encounter Summary ---
Author Author [facility] Organization [facility] Address Unknown Phone Unavailable Care Team Providers Care Parking Supervisor Name Role Phone PCP Unavailable Encounter Details Date Type Department Care Team Description 09/09/2016 Telephone [facility] Haley Lackey, SARANYA [facility] Radiology [address] [place] [address] Social History Tobacco Use Types Packs/Day Years Used Date Never Assessed Sex Assigned at Date Recorded Not on file as of this encounter Plan of Treatment Not on fileas of this encounter Visit Diagnoses Not on filein this encounter
--- OUTSIDE RECORDS SUMMARY | 2016-12-03 06:50 | XMS REPORT | Encounter Summary ---
Author Author [facility] Organization [facility] Address Unknown Phone Unavailable Care Team Providers Care Winery Cellar Hand Name Role Phone PCP Unavailable Encounter Details Date Type Department Care Team Description 09/10/2016 Telephone [facility] Haley Lackey, SARANYA [facility] Radiology [address] [place] [address] Social History Tobacco Use Types Packs/Day Years Used Date Never Assessed Sex Assigned at Date Recorded Not on file as of this encounter Plan of Treatment Not on fileas of this encounter Visit Diagnoses Not on filein this encounter
--- OUTSIDE RECORDS SUMMARY | 2016-12-03 06:50 | XMS REPORT | Encounter Summary ---
Author Author [facility] Organization [facility] Address Unknown Phone Unavailable Care Team Providers Care Healthcare Marketer Name Role Phone PCP Unavailable Encounter Details Date Type Department Care Team Description 09/04/2016 Ancillary [facility] Outpatient, Radiologist Diagnosis unknown Orders Hospital Radiology (Primary Dx) [address] [facility] [address] [place] [address] Social History Tobacco Use Types Packs/Day Years Used Date Never Assessed Sex Assigned at Date Recorded Not on file as of this encounter Plan of Treatment Not on fileas of this encounter Results * CT ABDOMEN EXTERNAL IMAGING (07/30/2016) Narrative This order has been auto finalized and does not contain a result. * US ABDOMEN EXTERNAL IMAGING (07/22/2016) Narrative This order has been auto finalized and does not contain a result. * MRI ABDOMEN EXTERNAL IMAGING (06/11/2016) Narrative This order has been auto finalized and does not contain a result. in this encounter Visit Diagnoses Diagnosis Diagnosis unknown - Primary Other unknown and unspecified cause of morbidity or mortality in this encounter
--- OUTSIDE RECORDS SUMMARY | 2016-12-03 06:50 | XMS REPORT | Encounter Summary ---
Author Author [facility] Organization [facility] Address Unknown Phone Unavailable Care Team Providers Care Child Development Teacher Name Role Phone PCP Unavailable Encounter Details Date Type Department Care Team Description 09/12/2016 Telephone [facility] Haley Lackey, SARANYA [facility] Radiology [address] [place] [address] Social History Tobacco Use Types Packs/Day Years Used Date Never Assessed Sex Assigned at Date Recorded Not on file as of this encounter Plan of Treatment Not on fileas of this encounter Visit Diagnoses Not on filein this encounter
--- OUTSIDE RECORDS SUMMARY | 2016-12-03 06:50 | XMS REPORT | Encounter Summary ---
Author Author [facility] Organization [facility] Address Unknown Phone Unavailable Care Team Providers Care Repairer Shoe Sticks Name Role Phone PCP Unavailable Encounter Details Date Type Department Care Team Description 09/04/2016 Telephone [facility] Haley Lackey RN [facility] Radiology [address] [place], [place] [id number] Social History Tobacco Use Types Packs/Day Years Used Date Never Assessed Sex Assigned at Date Recorded Not on file as of this encounter Progress Notes * Haley Lackey RN - 09/04/2016 12:27 PM CDT Interventional Radiology Progress Note Received order from Dr. Gabriel for treatment with ablation for liver mass. Outside imaging reviewed by Dr. Yanez who recommends treatment with dual procedure of TACE/MWA. Patient called to schedule consult. Plan to do a telemedicine consult in [place]. Request has been emailed to telemed department, appointment pending. Spoke with patient's regarding this plan. Will call patient back once a telemedcine consult date has been scheduled. Also spoke with CNC with Dr. Gabriel's office regarding this plan. Haley Lackey RN in this encounter Plan of Treatment Not on fileas of this encounter Visit Diagnoses Not on filein this encounter
--- OUTSIDE RECORDS SUMMARY | 2016-12-03 06:50 | XMS REPORT ---
Author Author NIRANJAN CUNNINGHAM [facility] Address [address] [place] [address] Care Team Providers Care Pharmacist Manager Name Role Phone NIRANJAN CUNNINGHAM Unavailable PROBLEMS Type Condition ICD9-CM Code [id number] Code Onset Dates Condition Status SNOMED Code Problem Right-sided low back pain without sciatica M54.5 Active 464276050 Problem Diabetes mellitus E11.9 Active 19637603 Problem Type 2 diabetes mellitus with complication E11.8 Active 99153206 Problem Renal insufficiency N28.9 Active 125625147 Problem FH: sudden cardiac (SCD) Z82.41 Active 638953613501799 Problem Syncopal episodes R55 Active 846920598 Problem Chronic venous stasis dermatitis of both lower extremities I87.2 Active 16875308 Problem Skin infection L08.9 Active 522715992 Problem Essential hypertension I10 Active 36446831 Problem Acquired hypothyroidism E03.9 Active 049707446 Problem Neuropathy G62.9 Active 086532226 Problem Diabetic polyneuropathy associated with type 2 diabetes mellitus E11.42 Active 80545006 ALLERGIES Unknown Allergies SOCIAL HISTORY No smoking Hx information available PLAN OF CARE VITAL SIGNS MEDICATIONS Unknown Medications RESULTS No Results PROCEDURES No Known procedures IMMUNIZATIONS No Known Immunizations
--- OUTSIDE RECORDS SUMMARY | 2016-12-03 06:51 | XMS REPORT ---
Author Author NIRANJAN CUNNINGHAM [facility] Address [address] [place] [address] Care Team Providers Care Newsroom Intern Name Role Phone NIRANJAN CUNNINGHAM Unavailable PROBLEMS Type Condition ICD9-CM Code [id number] Code Onset Dates Condition Status SNOMED Code Problem Type 2 diabetes mellitus with complication E11.8 Active 22995296 Problem Diabetes mellitus E11.9 Active 71752452 Problem Right-sided low back pain without sciatica M54.5 Active 745215497 Problem Renal insufficiency N28.9 Active 631972117 Problem FH: sudden cardiac (SCD) Z82.41 Active 681930253135276 Problem Syncopal episodes R55 Active 534019294 Problem Chronic venous stasis dermatitis of both lower extremities I87.2 Active 65685726 Problem Skin infection L08.9 Active 104141842 Problem Essential hypertension I10 Active 02333312 Problem Acquired hypothyroidism E03.9 Active 264110551 Problem Neuropathy G62.9 Active 931037235 Problem Diabetic polyneuropathy associated with type 2 diabetes mellitus E11.42 Active 90873505 ALLERGIES Unknown Allergies SOCIAL HISTORY No smoking Hx information available PLAN OF CARE VITAL SIGNS MEDICATIONS Unknown Medications RESULTS No Results PROCEDURES No Known procedures IMMUNIZATIONS No Known Immunizations
[2016-12-03] MEDS ORDERED: HEParin (CATH LAB) 2,000 ML IV ONE (06:52)
[2016-12-03] MEDS ORDERED: NS IV 1000 ML 1,000 ML ONE (06:52)
--- OUTSIDE RECORDS SUMMARY | 2016-12-03 06:52 | XMS REPORT ---
Author Author NIRANJAN CUNNINGHAM [facility] Address [address] [place] [address] Care Team Providers Care Transportation Department Supervisor Name Role Phone NIRANJAN CUNNINGHAM Unavailable PROBLEMS Type Condition ICD9-CM Code [id number] Code Onset Dates Condition Status SNOMED Code Problem Right-sided low back pain without sciatica M54.5 Active 075012588 Problem Diabetes mellitus E11.9 Active 83895026 Problem Type 2 diabetes mellitus with complication E11.8 Active 15809118 Problem Renal insufficiency N28.9 Active 912129024 Problem FH: sudden cardiac (SCD) Z82.41 Active 312113004488080 Problem Syncopal episodes R55 Active 098536027 Problem Chronic venous stasis dermatitis of both lower extremities I87.2 Active 15702135 Problem Skin infection L08.9 Active 565238597 Problem Essential hypertension I10 Active 19417148 Problem Acquired hypothyroidism E03.9 Active 743185537 Problem Neuropathy G62.9 Active 013935928 Problem Diabetic polyneuropathy associated with type 2 diabetes mellitus E11.42 Active 59603867 ALLERGIES Substance Reaction Event Type Date Status N.K.D.A. Unknown Non Drug Allergy Feb, Unknown SOCIAL HISTORY No smoking Hx information available PLAN OF CARE Activity Details Follow Up 2 Months Reason:DM/Thyroid VITAL SIGNS Height 68 in 2016-02-28 Weight 219.0 lbs 2016-02-28 Temperature 98.0 degrees Fahrenheit 2016-02-28 Heart Rate 92 bpm 2016-02-28 Respiratory Rate 22 2016-02-28 BMI 33.30 kg/m2 2016-02-28 Blood pressure systolic 130 mmHg 2016-02-28 Blood pressure diastolic 78 mmHg 2016-02-28 MEDICATIONS Medication Instructions Dosage Frequency Start Date End Date Duration Status Lyrica 50 MG Orally bid 1 capsule 12h Active Diclofenac Sodium 75 MG Orally 2 times a day 1 tablet 12h 30 days Active Celebrex 200 mg Orally Once a day 1 capsule 24h 30 Active Triamcinolone Acetonide 0.1 % Externally Twice a day 1 application to affected area 12h 21 Aug, 2015 Active Benzonatate 100 MG Orally Three times a day prn 1 capsule as needed Feb, 7 days Active Doxycycline Hyclate 100 MG Orally every 12 hrs 1 capsule 12h 15 Feb, 2016 Feb, 7 days Active Levothyroxine Sodium 75 MCG Orally Once a day 1 tablet 24h Active Blood Glucose Monitor System w/Device as directed July, 30 days Active Lisinopril 5 MG Orally bid 1 tablet 12h 30 days Active Glimepiride 1 MG Orally twice a day 1 tablet 12h 30 day(s) Active Test strips 1 as directed July, 1 dose Active MetFORMIN HCl ER 500 MG Orally twice daily 2 tablets 30 Active RESULTS No Results PROCEDURES Procedure Date Ordered Related Diagnosis Body Site [facility] VISIT ESTABLISHED PATIENT Feb 28, 2016 Office Visit, Est Pt., Level 4 Feb 28, 2016 IMMUNIZATIONS No Known Immunizations
--- OUTSIDE RECORDS SUMMARY | 2016-12-03 06:52 | XMS REPORT ---
Author Author NIRANJAN CUNNINGHAM [facility] Address [address] [place] [address] Care Team Providers Care Casting Plug Assembler Name Role Phone NIRANJAN CUNNINGHAM Unavailable PROBLEMS Type Condition ICD9-CM Code [id number] Code Onset Dates Condition Status SNOMED Code Problem Type 2 diabetes mellitus with complication E11.8 Active 45820820 Problem Diabetes mellitus E11.9 Active 24595669 Problem Right-sided low back pain without sciatica M54.5 Active 125232268 Problem Renal insufficiency N28.9 Active 164955827 Problem FH: sudden cardiac (SCD) Z82.41 Active 176329139403951 Problem Syncopal episodes R55 Active 326065786 Problem Chronic venous stasis dermatitis of both lower extremities I87.2 Active 06937856 Problem Skin infection L08.9 Active 259152672 Problem Essential hypertension I10 Active 93445278 Problem Acquired hypothyroidism E03.9 Active 773805809 Problem Neuropathy G62.9 Active 902901184 Problem Diabetic polyneuropathy associated with type 2 diabetes mellitus E11.42 Active 87430201 ALLERGIES Unknown Allergies SOCIAL HISTORY No smoking Hx information available PLAN OF CARE VITAL SIGNS MEDICATIONS Unknown Medications RESULTS No Results PROCEDURES No Known procedures IMMUNIZATIONS No Known Immunizations
[2016-12-03 07:37] LABS: MEAN PLATELET VOLUME 9.6 FL (7.4-10.4); RED BLOOD COUNT 3.74 10^6/uL (4.35-5.85); RED CELL DISTRIBUTION WIDTH 13.6 % (10.0-14.5); WHITE BLOOD COUNT 4.5 10^3/uL (4.3-11.0)
[2016-12-03] MEDS ORDERED: OXYC5TAB71 PO (07:42)
[2016-12-03] MEDS ORDERED: fentaNYL INJECTION 100 MCG/2 ML AMP ONE (07:44)
[2016-12-03] MEDS ORDERED: MIDAZOLAM 5 MG/5 ML (VERSED) VIAL ONE (07:44)
[2016-12-03] MEDS ORDERED: NS IV 1000 ML 1,000 ML IV SCH ×2 (07:45→08:51)
[2016-12-03 07:51] LABS: INR 1.1 (0.8-1.4); PROTHROMBIN TIME PATIENT 13.9 SEC (12.2-14.7)
[2016-12-03 07:59] LABS: ALANINE AMINOTRANSFERASE 30 U/L (0-55); ALBUMIN 3.8 GM/DL (3.2-4.5); ANION GAP 8 MMOL/L (5-14); ASPARTATE AMINO TRANSFERASE 33 U/L (5-34); BLOOD UREA NITROGEN 16 MG/DL (7-18); BUN/CREATININE RATIO 16; CALCIUM 9.6 MG/DL (8.5-10.1); CARBON DIOXIDE 24 MMOL/L (21-32); CHLORIDE 106 MMOL/L (98-107); CHOLESTEROL 162 MG/DL (< 200); CREATININE SERUM 1.01 MG/DL (0.60-1.30); DIRECT LDL 112 MG/DL (1-129); GFR ESTIMATED > 60; GLUCOSE 154 MG/DL (70-105); SODIUM 138 MMOL/L (135-145); TOTAL PROTEIN 8.1 GM/DL (6.4-8.2); TRIGLYCERIDES 98 MG/DL (<150); VLDL CHOLESTEROL 20 MG/DL (5-40)
--- NOTE | 2016-12-03 08:09 | Diagnostic Imaging Report ---
INDICATION: Coronary artery disease, hypertension. TECHNIQUE: Single view chest 7:28 AM. CORRELATION STUDY: None FINDINGS: Heart size and mediastinum are prominent. Vasculature within normal limits. The lungs are clear with no consolidating infiltrate. There is no significant effusion or pneumothorax. IMPRESSION: 1. Cardiac enlargement may be somewhat accentuated by technique but does appear to be mildly enlarged. No evidence for overt failure or otherwise acute findings in the chest. Dictated by: Dictated on workstation # [id number]
--- NOTE | 2016-12-03 08:13 | Cardiac Procedure Note-CS/ASA ---
Pre-Procedure Note Pre-Op Procedure Note H&P Reviewed The H&P was reviewed, patient examined and no changes noted. Date H&P Reviewed: Dec 03, 2016 Time H&P Reviewed: 08:12 Conscious Sedation Pre-Proced Time Reviewed: 08:12 ASA Class: 3 Airway Mallampati Classification: ([place] appropriate class) I. II. III, IV Lungs Heart ASA score ASA 1: a normal healthy patient ASA 2: a patient with a mild systemic disease (mid diabetes, controlled hypertension, obesity x ASA 3: a patient with a severe systemic disease that limits activity (angina , COPD, prior Myocardial infarction) ASA 4: a patient with an incapacitating disease that is a constant threat to life (CHF, renal failure) ASA 5: a moribund patient not expected to survive 24 hrs. (ruptured aneurysm) ASA 6: a declared brain patient whose organs are being harvested. For emergent operations, add the letter E after the classification Grade 3 Sedation Plan: Analgesia, Amnesia, Plan communicated to team members, Discussed options with patient/fam, Discussed risks with patient/fam Note The patient is an appropriate candidate to undergo the planned procedure, sedation, and anesthesia. The patient immediately re-assessed prior to indication. CHERRIE CROOKS MD Dec 03, 2016 08:13
--- NOTE | 2016-12-03 08:54 | Discharge Inst-Post CATH ---
Discharge Inst-CATH Post Cardiac Cath D/C Inst Follow Up/Plan Hold Metformin for [address] Alvarado's office in 2-4 weeks CARDIAC CATH DISCHARGE INSTRUCTIONS *Hold Metformin for 48 hours post heart cath. ACTIVITY * Go Home directly and rest. * Limit activity of the leg (or wrist if it was used) for 7 days including aerobics, swimming, jogging, bicycling, etc. * Restrict stair-climbing for 7 days if possible, if not, climb up with your non -cath leg, then bring together on the same step. * Avoid lifting, pushing, pulling or excessive movement of the affected extremity for 7 days. * Customary sexual activity may be resumed after 2 days-use caution not to use a position that strains or causes pain to the affected extremity. * No driving for 24 hours. * NO SMOKING. * Avoid straining for bowel movements for 7 days. * Gentle walking on level ground is allowed. * Returning to work will depend on the type of procedure and the results. Your doctor will discuss this with you. CALL YOUR DOCTOR FOR ANY OF THE FOLLOWING: *If bleeding from the puncture site occurs- Apply gentle pressure to site with clean cloth and call your doctor or EMS. * If a knot or lump forms under the skin, increases in size, or causes pain. * If bruising appears to be worsening or moving further down your leg instead of disappearing. * Temperature above 101 F. CARE OF YOUR GROIN INCISION; * Bruising or purple discoloration of the skin near the puncture site is common. * You may shower only, no bathtub bathing for 5 days. Be careful to avoid slipping as your leg may feel stiff. * If a closure device was used on your femoral artery, please see the attached guide regarding care of the device and your leg. * REMOVE the dressing from your groin the next day after your procedure in the shower. CARE OF YOUR WRIST INCISION; * Bruising or purple discoloration of the skin near the puncture site is common. * You may shower. * DO NOT submerge wrist. * Remove dressing in 24 hours. CHERRIE ALVARADO MD Dec 03, 2016 08:54
--- NOTE | 2016-12-03 08:59 | Cardiac Cath Report ---
Cardiac Cath Report Physician (s)/Commodities Broker (s) Physician CHERRIE CROOKS MD Pre-Procedure Diagnosis Pre-Procedure Diagnosis: peripheral arterial disease Post-Procedure Note Procedure Start Date: Dec 03, 2016 Procedure Start Time: 08:55 Name of Procedure: abdominal aortogram with bilateral lower extremity runoff Findings/Procedure Note PROCEDURE NOTE: After explaining the procedure to the patient, all pros and cons were explained, all questions were answered. The patient signed the consent and then she was placed on the cardiac catheterization laboratory. The patient was placed on the cardiac catheterization laboratory. Groin was prepped SL fashion local anesthesia was used. Sheath placed in the artery. Runoff of the right lower except he was done through the sheath, multiple runoff were done at different segment to the right lower extremities and a pigtail catheter was placed in the abdominal aorta and evaluation of the abdominal aorta and bifurcation was done across over with the pigtail catheter and advanced the pigtail catheter to the left common femoral artery and runoff to the left lower except he was done then I advanced a Glidewire without difficulty down to the popliteal artery exchanged the pigtail catheter into a straight catheter and did 3 angiogram below the knee for all the arteries on the left lower extremity. At the end of the procedure sheath was removed Jose hemostasis achieved FINDINGS: Abdominal aortogram showed normal abdominal aorta and bifurcation, mild arthroscopic exchanges no dissection, no aneurysm obstructive disease Right lower except he ran off the right lower chin. Runoff was done at multiple segments and it showed calcified artery with nonobstructive disease down to the pedal arch Left lower extremity runoff the left lower except. Runoff was done at multiple segments with a straight catheter down to the popliteal artery, the runoff down to the arch evaluating every segment and showing calcified artery with mild disease nonobstructive disease CONCLUSION: Calcified arteries in the lower extremities with no significant obstructive disease mild disease noted bilaterally Normal abdominal aorta and bifurcation DISCUSSION AND RECOMMENDATION: medical therapy is recommended no intervention is needed Anesthesia Type: Conscious Sedation Estimated blood loss (mL): 5 ml Contrast Amount: 54 ml Total Radiation Dose: 532 mGy Post-Procedure Diagnosis Post-operative diagnosis: Peripheral arterial disease Hepatic cirrhosis Chronic venous insufficiency Peripheral edema CHERRIE CROOKS MD Dec 03, 2016 08:59
[2016-12-03] MEDS ORDERED: PATIENT MAY USE OWN MEDS, ALL PO SCH (09:00)
== END 2016-12-03 13:25 | disposition home or self-care (01) ==
LOC: CATH 06:45 → SURG 09:11 → CATH 13:25
PROVIDERS: ATTEND Internal Medicine Cardiovascular Disease
DX: I70.213 Atherosclerosis of native arteries of extremities with intermittent claudication, bilateral legs (principal); K74.60 Unspecified cirrhosis of liver; I10 Essential (primary) hypertension; E11.9 Type 2 diabetes mellitus without complications; D61.818 Other pancytopenia; R16.1 Splenomegaly, not elsewhere classified; Z79.84 Long term (current) use of oral hypoglycemic drugs; Z79.899 Other long term (current) drug therapy
CPT/HCPCS: 36247; 36415; 71010; 75625; 75716; 75774; 80053; 80061; 85027; 85610; 85730; 87081

== ENCOUNTER → 2016-12-08 | Outpatient (CLI) | payer MEDICARE, MEDICAID ==
[~2016-12-08] MED LIST changes: +OXYC5TAB71 PO
== END ==
LOC: WOUNDCARE 13:25
PROVIDERS: ATTEND Surgery
DX: E11.628 Type 2 diabetes mellitus with other skin complications (principal); L30.9 Dermatitis, unspecified; I73.9 Peripheral vascular disease, unspecified; K74.60 Unspecified cirrhosis of liver; I10 Essential (primary) hypertension
CPT/HCPCS: 99213

== ENCOUNTER 2016-12-09 09:51 | Outpatient (RCR) | payer MEDICARE, MEDICAID ==
[2016-12-09 10:03] LABS: BASOPHILS % (AUTO) 1 % (0-10); EOSINOPHILS # (AUTO) 0.1 10^3/uL (0.0-0.3); EOSINOPHILS % (AUTO) 3 % (0-10); LYMPHOCYTES # (AUTO) 0.7 X 10^3 (1.0-4.0); LYMPHOCYTES % (AUTO) 16 % (12-44); MEAN CORPUSCULAR HEMOGLOBIN 31 PG (25-34); MEAN CORPUSCULAR HGB CONC 33 G/DL (32-36); MEAN CORPUSCULAR VOLUME 95 FL (80-99); MEAN PLATELET VOLUME 9.2 FL (7.4-10.4); MONOCYTES # (AUTO) 0.3 X 10^3 (0.0-1.0); MONOCYTES % (AUTO) 7 % (0-12); NEUTROPHILS % (AUTO) 74 % (42-75); PLATELET COUNT 110 10^3/uL (130-400); RED BLOOD COUNT 3.45 10^6/uL (4.35-5.85); RED CELL DISTRIBUTION WIDTH 13.1 % (10.0-14.5); WHITE BLOOD COUNT 4.1 10^3/uL (4.3-11.0)
[2016-12-09 10:25] LABS: ALANINE AMINOTRANSFERASE 23 U/L (0-55); ALBUMIN 3.4 GM/DL (3.2-4.5); ANION GAP 9 MMOL/L (5-14); ASPARTATE AMINO TRANSFERASE 22 U/L (5-34); BILIRUBIN,TOTAL 0.7 MG/DL (0.1-1.0); BLOOD UREA NITROGEN 15 MG/DL (7-18); BUN/CREATININE RATIO 15; CALCIUM 9.4 MG/DL (8.5-10.1); CARBON DIOXIDE 24 MMOL/L (21-32); CHLORIDE 107 MMOL/L (98-107); CREATININE SERUM 0.98 MG/DL (0.60-1.30); GFR ESTIMATED > 60; GLUCOSE 143 MG/DL (70-105); POTASSIUM 4.1 MMOL/L (3.6-5.0); SODIUM 140 MMOL/L (135-145); TOTAL PROTEIN 7.5 GM/DL (6.4-8.2)
== END 2016-12-13 | disposition home or self-care (01) ==
LOC: ONC 09:51
PROVIDERS: ATTEND Internal Medicine Hematology & Oncology
DX: R16.1 Splenomegaly, not elsewhere classified; D50.9 Iron deficiency anemia, unspecified; D61.818 Other pancytopenia; C22.0 Liver cell carcinoma
CPT/HCPCS: 36415; 80053; 82728; 85025; 99213

== ENCOUNTER → 2017-02-16 | Outpatient (CLI) | payer MEDICARE, MEDICAID ==
[~2017-02-16] MED LIST changes: +GADOXETATE 2.5 MMOL/10 ML (EOVIST) IV ONE; +OXYC-529 PO; -OXYC5TAB71 PO
[2017-02-16 09:35] LABS: BASOPHILS % (AUTO) 0 % (0-10); EOSINOPHILS # (AUTO) 0.2 10^3/uL (0.0-0.3); EOSINOPHILS % (AUTO) 6 % (0-10); LYMPHOCYTES # (AUTO) 0.6 X 10^3 (1.0-4.0); LYMPHOCYTES % (AUTO) 16 % (12-44); MEAN CORPUSCULAR HEMOGLOBIN 31 PG (25-34); MEAN CORPUSCULAR HGB CONC 32 G/DL (32-36); MEAN CORPUSCULAR VOLUME 95 FL (80-99); MEAN PLATELET VOLUME 8.9 FL (7.4-10.4); MONOCYTES # (AUTO) 0.2 X 10^3 (0.0-1.0); MONOCYTES % (AUTO) 6 % (0-12); NEUTROPHILS # (AUTO) 2.5 X 10^3 (1.8-7.8); NEUTROPHILS % (AUTO) 72 % (42-75); PLATELET COUNT 100 10^3/uL (130-400); RED BLOOD COUNT 3.05 10^6/uL (4.35-5.85); RED CELL DISTRIBUTION WIDTH 13.8 % (10.0-14.5); WHITE BLOOD COUNT 3.5 10^3/uL (4.3-11.0)
[2017-02-16 09:53] LABS: ALBUMIN 3.1 GM/DL (3.2-4.5); BILIRUBIN,TOTAL 0.5 MG/DL (0.1-1.0); CREATININE SERUM 1.22 MG/DL (0.60-1.30); POTASSIUM 4.7 MMOL/L (3.6-5.0); TOTAL PROTEIN 8.4 GM/DL (6.4-8.2)
--- NOTE | 2017-02-16 20:39 | Diagnostic Imaging Report ---
PROCEDURE: MR imaging abdomen with and without contrast. TECHNIQUE: Multiplanar, multisequence MR imaging of the abdomen was performed with and without contrast. INDICATION: Followup liver mass. COMPARISON: 11/28/2016. 9 mL of Eovist is administered intravenously. FINDINGS: There is a right hepatic lobe mass seen with hypointensity noted in the lesion on T1- and T2-weighted images. There is no significant post-contrast enhancement identified. The lesion is 1.9 cm in size, similar to 11/28/2016 exam. There is adjacent artifact arising from a marking coil placed adjacent to the lesion. The lack of post-contrast enhancement is suggestive of internal necrosis. No other masses are identified. A tiny cyst is suggested in the inferior aspect of the right hepatic lobe measuring 6 mm with no post-contrast enhancement identified. The spleen is moderately enlarged measuring 17 cm in length. The portal vein is patent. The gallbladder is not seen, presumably related to prior cholecystectomy. The adrenal glands and the pancreas appear unremarkable. The kidneys demonstrate no hydronephrosis or focal lesion. No para-aortic significantly enlarged lymph nodes are seen. IMPRESSION: 1. Stable 1.9 cm mass with no enhancement seen in the right hepatic dome suggestive of necrosis. No other solid mass identified. 2. Moderate splenomegaly. Dictated by: Dictated on workstation # [id number]
== END ==
LOC: RAD 08:42
PROVIDERS: ATTEND Nurse Practitioner Adult Health
DX: C22.0 Liver cell carcinoma (principal); R16.1 Splenomegaly, not elsewhere classified
CPT/HCPCS: 36415; 74183; 80053; 82728; 85025

== ENCOUNTER 2017-02-27 10:26 | Outpatient (RCR) | payer MEDICARE, MEDICAID ==
[~2017-02-27 10:26] MED LIST changes: -GADOXETATE 2.5 MMOL/10 ML (EOVIST) IV ONE
[2017-04-26] MEDS ORDERED: PREG150C PO (17:47)
[2017-04-26] MEDS ORDERED: FERR325T18 PO (17:47)
[2017-04-26] MEDS ORDERED: LEVO88TA54 PO (17:47)
[2017-04-26] MEDS ORDERED: METF500T8 PO (17:47)
[2017-04-30] MEDS ORDERED: SENN-20 PO (10:34)
[2017-04-30] MEDS ORDERED: FENT1PAT9 TOP (10:34)
[2017-04-30] MEDS ORDERED: Oxycodone Hcl PO (10:34)
== END 2017-05-28 | disposition home or self-care (01) ==
LOC: ONC 10:26
PROVIDERS: ATTEND Internal Medicine Hematology & Oncology
DX: C22.0 Liver cell carcinoma (principal); R16.1 Splenomegaly, not elsewhere classified; D50.0 Iron deficiency anemia secondary to blood loss (chronic); E11.9 Type 2 diabetes mellitus without complications; I73.9 Peripheral vascular disease, unspecified; E66.9 Obesity, unspecified; Z68.33 Body mass index [BMI] 33.0-33.9, adult; Z79.84 Long term (current) use of oral hypoglycemic drugs; Z79.899 Other long term (current) drug therapy
CPT/HCPCS: 99213

== ENCOUNTER 2017-04-25 15:56 | Inpatient (IN) | payer MEDICARE, MEDICAID ==
[~2017-04-25] VITALS: Ht 165.1 cm; Wt 90.7 kg
[2017-04-25] MEDS ORDERED: ONDANSETRON 4 MG/2 ML (SDV) Z0FRAN IVP ONE ×2 (16:15→16:30)
[2017-04-25] MEDS ORDERED: fentaNYL INJECTION 100 MCG/2 ML AMP IVP STA (16:29)
--- NOTE | 2017-04-25 16:35 | ED General ---
General Chief Complaint: General Problems/Pain Stated Complaint: VOMITING,BLOOD IN VOMIT,L FOOT SORE Nursing Triage Note: PT TO ED 7 PER W/C W/ C/O CHRONIC BILAT LEG PAIN, WORSE ON THE LEFT. REPORTS WAS SEEING WOUND CARE BUT PER "DIDN'T LIKE WHAT THEY HAD TO SAY ET WHAT THEY WERE DOING SO HE STOPPED." ALSO C/O N/V ONSET 5 DAYS. NO OTHER C/O VOICED PER , PT IS DEAF Nursing Sepsis Screen: No Definite Risk Source of Information: Patient, Family Exam Limitations: Physical Impairments (hard of hearing) History of Present Illness Date Seen by Provider: Apr 25, 2017 Time Seen by Provider: 16:17 Initial Comments Here with report of bilateral lower extremity pain and swelling as well as multiple wounds. This is worsened over the last several days. Patient has end- stage liver disease/cirrhosis as well as liver cancer. Also reports 5 days of increased nausea and vomiting. States that he can take his Zofran and that last about 4 hours and then he starts vomiting again. Sometimes he has to take double dose to get control of the nausea. Patient doesn't meet criteria for liver transplant per the family and they're unsure why but may be related to the liver cancer. Timing/Duration: 1 Week, Getting Worse Severity: Moderate, Severe Associated Systoms: No Cough, No Fever/Chills, Loss of Appetite, Nausea/ Vomiting, No Shortness of Air, Weakness Allergies and Home Medications Allergies Coded Allergies: No Known Drug Allergies (Unverified , 05/01/16) Home Medications Glimepiride 1 Mg Tablet, 1 MG PO BID, (Reported) Levothyroxine Sodium 75 Mcg Tablet, 75 MCG PO DAILY, (Reported) Lisinopril 5 Mg Tablet, 5 MG PO BID, (Reported) Oxycodone HCl 5 Mg Tablet, 5 MG PO PRN, (Reported) Pregabalin 50 Mg Capsule, 50 MG PO BID, (Reported) Constitutional: see HPI, No chills, No fever, No weakness EENTM: no symptoms reported Respiratory: no symptoms reported Cardiovascular: no symptoms reported Gastrointestinal: abdominal pain, nausea, vomiting Genitourinary: no symptoms reported Musculoskeletal: muscle pain, muscle weakness Skin: change in color, lesions Psychiatric/Neurological: See HPI All Other Systems Reviewed Negative Unless Noted: Yes Past Eazwdzi-Riuftr-Tmzysy Hx Patient Social History Alcohol Use: Denies Use Recreational Drug Use: No Smoking Status: Never a Smoker 2nd Hand Smoke Exposure: No Recent Foreign Travel: No Contact w/Someone Who Travel: No Recent Infectious Disease Expo: No Recent Hopitalizations: Yes ([facility]) Physical Abuse: No Sexual Abuse: No Mistreated: No Fear: No Immunizations Up To Date Tetanus Booster (TDap): Unknown Date of Pneumonia Vaccine: Feb 14, 2016 Seasonal Allergies Seasonal Allergies: No Surgeries History of Surgeries: Yes Surgeries: Abdominal, Gallbladder, Renal Respiratory History of Respiratory Disorde: No Cardiovascular History of Cardiac Disorders: Yes (NORMAL STRESS ECHO 04/2015) Cardiac Disorders: Hypertension Neurological History of Neurological Disord: No Reproductive System Hx Reproductive Disorders: No Sexually Transmitted Disease: No HIV/AIDS: No Genitourinary History of Genitourinary Disor: Yes Genitourinary Disorders: Kidney Stones Gastrointestinal History of Gastrointestinal Di: Yes Gastrointestinal Disorders: Abdominal Hernia, Gastroesophageal Reflux, Chronic Constipation, Gall Bladder Disease Musculoskeletal History of Musculoskeletal Dis: Yes Musculoskeletal Disorders: Chronic Back Pain Endocrine History of Endocrine Disorders: Yes Endocrine Disorders: Hypothyroidsim, Diabetes, Non-Insulin dep HEENT History of HEENT Disorders: No Hearing Impairment: Deaf Cancer History of Cancer: Yes Cancer: Liver Psychosocial History of Psychiatric Problem: No Suicide Risk Score: 0 Integumentary History of Skin or Integumenta: Yes (dry skin on legs) Blood Transfusions History of Blood Disorders: No (ANEMIA) Adverse Reaction to a Blood Tr: No Reviewed Nursing Assessment Reviewed/Agree w Nursing PMH: Yes Family Medical History Significant Family History: Cancer Physical Exam-Suspected Sepsis Physical Exam Vital Signs Vital Signs - First Documented 04/25/17 16:02 Temp 97.2 Pulse 104 Resp 20 B/P (MAP) 136/61 (86) Pulse Ox 100 O2 Delivery Room Air Capillary Refill : Less Than 3 Seconds Blood Pressure Mean: 86 General Appearance: No Apparent Distress, WD/WN HEENT: PERRL/EOMI, Pharynx Normal Neck: Non Tender, Supple Respiratory: Lungs Clear, Normal Breath Sounds Cardiovascular: Regular Rate, Rhythm, No Murmur Gastrointestinal: Non Tender, Soft Back: Normal Inspection, No CVA Tenderness, No Vertebral Tenderness Extremity: Pedal Edema (3+ to the lower extremities from the knees down bilateral), Other (moderate tenderness to the legs below the knees on the way down to the feet) Neurologic/Psychiatric: Alert, Oriented x3, Other (patient is deaf but is able to read lips and follow commands. Is able to answer questions.) Skin: warm/dry, ulcerations, other (bilateral lower extremities with dry flaking skin and multiple areas of cracked skin with weeping and/or bleeding sores.) Focused Exam Evaluation Lactate Level Laboratory Tests 04/25/17 16:29: Lactic Acid Level 1.61 Lactic Acid Level Laboratory Tests Test 04/25/17 16:29 Lactic Acid Level 1.61 MMOL/L (0.50-2.00) Progress/Results/Core Measures Suspected Sepsis Recent Fever Within 48 Hours: No Infection Criteria Present: None New/Unexplained Altered Menta: No Sepsis Screen: No Definite Risk Sepsis Diagnosis: SIRS Temperature:97.2 Pulse: 104 Respiratory Rate: 20 Laboratory Tests 04/25/17 16:29: White Blood Count 4.6 Blood Pressure 136 /61 Mean: 86 Laboratory Tests 04/25/17 16:29: Lactic Acid Level 1.61 Laboratory Tests 04/25/17 16:29: Creatinine 2.72H, INR Comment 1.3, Platelet Count 122L, Total Bilirubin 0.5 Results/Orders Lab Results Laboratory Tests Test 04/25/17 16:29 Range/Units White Blood Count 4.6 4.3-11.0 10^3/uL Red Blood Count 2.76 L 4.35-5.85 10^6/uL Hemoglobin 8.6 L 13.3-17.7 G/DL Hematocrit 26 L 40-54 % Mean Corpuscular Volume 95 80-99 FL Mean Corpuscular Hemoglobin 31 25-34 PG Mean Corpuscular Hemoglobin Concent 33 32-36 G/DL Red Cell Distribution Width 13.4 10.0-14.5 % Platelet Count 122 L 130-400 10^3/uL Mean Platelet Volume 9.1 7.4-10.4 FL Neutrophils (%) (Auto) 85 H 42-75 % Lymphocytes (%) (Auto) 10 L 12-44 % Monocytes (%) (Auto) 5 0-12 % Eosinophils (%) (Auto) 0 0-10 % Basophils (%) (Auto) 0 0-10 % Neutrophils # (Auto) 3.9 1.8-7.8 X 10^3 Lymphocytes # (Auto) 0.4 L 1.0-4.0 X 10^3 Monocytes # (Auto) 0.2 0.0-1.0 X 10^3 Eosinophils # (Auto) 0.0 0.0-0.3 10^3/uL Basophils # (Auto) 0.0 0.0-0.1 10^3/uL Prothrombin Time 15.9 H 12.2-14.7 SEC INR Comment 1.3 0.8-1.4 Activated Partial Thromboplast Time 32 24-35 SEC Sodium Level 139 135-145 MMOL/L Potassium Level 6.0 H 3.6-5.0 MMOL/L Chloride Level 115 H 98-107 MMOL/L Carbon Dioxide Level 14 L 21-32 MMOL/L Anion Gap 10 5-14 MMOL/L Blood Urea Nitrogen 55 H 7-18 MG/DL Creatinine 2.72 H 0.60-1.30 MG/DL Estimat Glomerular Filtration Rate 24 BUN/Creatinine Ratio 20 Glucose Level 112 H 70-105 MG/DL Lactic Acid Level 1.61 0.50-2.00 MMOL/L Calcium Level 9.4 8.5-10.1 MG/DL Total Bilirubin 0.5 0.1-1.0 MG/DL Aspartate Amino Transf (AST/SGOT) 26 5-34 U/L Alanine Aminotransferase (ALT/SGPT) 25 0-55 U/L Alkaline Phosphatase 135 40-136 U/L Total Protein 8.6 H 6.4-8.2 GM/DL Albumin 3.2 3.2-4.5 GM/DL My Orders Orders - RAISSA STARR MD Cbc With Automated Diff (04/25/17 16:14) Comprehensive Metabolic Panel (04/25/17 16:14) Lactic Acid Analyzer (04/25/17 16:14) Blood Culture (04/25/17 16:14) Sputum Culture (04/25/17 16:14) Ua Culture If Indicated (04/25/17 16:14) Protime With Inr (04/25/17 16:14) Partial Thromboplastin Time (04/25/17 16:14) Chest 1 View, Ap/Pa Only (04/25/17 16:14) O2 (04/25/17 16:14) Saline Lock/Iv-Start (04/25/17 16:14) Vital Signs Adult Sepsis Patie Q1H (04/25/17 16:14) Remove Rings In Anticipation O (04/25/17 16:14) Ondansetron Injection (Zofran Injectio (04/25/17 16:15) Ondansetron Injection (Zofran Injectio (04/25/17 16:30) Fentanyl Injection (Sublimaze Injection (04/25/17 16:29) Ns Iv 500 Ml (Sodium Chloride 0.9%) (04/25/17 16:43) Ct Abdomen/Pelvis Wo (04/25/17 17:23) Ekg Tracing (04/25/17 17:26) Ns Iv 500 Ml (Sodium Chloride 0.9%) (04/25/17 17:26) Medications Given in ED Current Medications Medications Dose Ordered Sig/Steve Route Start Time Stop Time Status Last Admin Dose Admin Ondansetron HCl 4 mg ONCE ONCE IVP 04/25/17 16:15 04/25/17 16:16 DC 04/25/17 16:31 4 MG Sodium Chloride 500 ml @ 0 mls/hr Q0M ONCE IV 04/25/17 16:43 04/25/17 16:44 DC 04/25/17 16:47 500 MLS/HR Sodium Chloride 500 ml @ 0 mls/hr Q0M ONCE IV 04/25/17 17:26 04/25/17 17:27 DC 04/25/17 17:59 500 MLS/HR Vital Signs/I&O Vital Sign - Last 12Hours 04/25/17 16:02 Temp 97.2 Pulse 104 Resp 20 B/P (MAP) 136/61 (86) Pulse Ox 100 O2 Delivery Room Air Capillary Refill : Less Than 3 Seconds Blood Pressure Mean: 86 Progress Note : Progress Note Seen and evaluated. IV, labs, blood cultures, lactic acid, chest x-ray and UA ordered. Zofran 4 mg IV and fentanyl 75 g IV ordered for nausea and pain. Normal saline 500 mL bolus ordered. Monitor patient. Repeat normal saline 500 mL bolus. Nausea is improved and pain is improved after medicines. CT abdomen and pelvis ordered. 1751: I have discussed the case with Dr. Castro and she accepts patient for admission, inpatient status due to acute renal failure and leg wounds. Patient has end-stage liver disease and liver cancer and now has acute renal failure with the leg wounds. I did discuss all of this with the patient and family including his 2 daughters and did discuss the need for more comfort and/or palliative care as the liver disease is not treatable and its current state. We will continue to treat the leg wounds and renal disease but ensure excellent comfort for the patient. I did discuss CODE STATUS with the patient and family. Initially he was considering being full code but after further discussion he has accepted that DO NOT RESUSCITATE is a better status and that is what he is requesting. I did discuss this with the and family and they agree. Patient will be DO NOT RESUSCITATE but again we will continue treatment and comfort measures. Palliative consult will be ordered. All of this was discussed with Dr. Castro agrees. Admit, inpatient status. Rocephin 1 g IV ordered. ECG Initial ECG Impression Date: Apr 25, 2017 Initial ECG Impression Time: 18:07 Initial ECG Rate: 102 Initial ECG Rhythm: S.Tach Comment Sinus tachycardia with artifact. No evidence of ST elevation CA. No previous available for comparison. Interpreted by me. Diagnostic Imaging Diagonstic Imaging: Xray Plain Films/CT/US/NM/MRI: chest Comments VIA [facility]. [place], [place] NAME: GRACIE LARA [facility] REC#: [id number] PT STATUS: REG ER : 1955 PHYSICIAN: RAISSA STARR MD ADMIT DATE: 04/25/17/ER Draft Date of Exam:04/25/17 CHEST 1 VIEW, AP/PA ONLY Portable erect AP chest at 4:51 p.m. INDICATION: Nausea and vomiting. FINDINGS: The heart size is within normal limits and stable when compared to 12/03/2016. The lungs are clear. There is no evidence for failure, pneumonia or for pleural effusion. Mediastinum is not widened. The osseous structures are intact. IMPRESSION: There is no evidence for active disease. Dictated on workstation # [id number] Dict: 04/25/17 1659 Trans: 04/25/17 1701 KB [id number] Interpreted by: LAURENT ALDRICH MD Electronically signed by: Departure Communication (Admissions) Time/Spoke to Admitting Phy: 17:51 Impression Impression: Primary Impression: Acute renal failure Qualified Codes: N17.9 - Acute kidney failure, unspecified Additional Impressions: End stage liver disease Liver cancer Qualified Codes: C22.9 - Malignant neoplasm of liver, not specified as primary or secondary Hyperkalemia Cellulitis of lower extremity Qualified Codes: L03.119 - Cellulitis of unspecified part of limb Disposition: ADMITTED INPATIENT Condition: Stable Admissions Decision to Admit Reason: Admit from ER (General) Decision to Admit/Date: Apr 25, 2017 Time/Decision to Admit Time: 17:51 Departure-Patient Inst. Referrals: VERENICE LARES DO (PCP) Primary Care Physician NIRANJAN CUNNINGHAM (Family) Primary Care Physician RAISSA STARR MD Apr 25, 2017 16:35
[2017-04-25 16:43] LABS: BASOPHILS % (AUTO) 0 % (0-10); EOSINOPHILS % (AUTO) 0 % (0-10); HEMATOCRIT 26 % (40-54); HEMOGLOBIN 8.6 G/DL (13.3-17.7); LYMPHOCYTES # (AUTO) 0.4 X 10^3 (1.0-4.0); LYMPHOCYTES % (AUTO) 10 % (12-44); MEAN CORPUSCULAR HEMOGLOBIN 31 PG (25-34); MEAN CORPUSCULAR HGB CONC 33 G/DL (32-36); MEAN CORPUSCULAR VOLUME 95 FL (80-99); MEAN PLATELET VOLUME 9.1 FL (7.4-10.4); MONOCYTES # (AUTO) 0.2 X 10^3 (0.0-1.0); MONOCYTES % (AUTO) 5 % (0-12); NEUTROPHILS # (AUTO) 3.9 X 10^3 (1.8-7.8); NEUTROPHILS % (AUTO) 85 % (42-75); PLATELET COUNT 122 10^3/uL (130-400); RED BLOOD COUNT 2.76 10^6/uL (4.35-5.85); RED CELL DISTRIBUTION WIDTH 13.4 % (10.0-14.5); WHITE BLOOD COUNT 4.6 10^3/uL (4.3-11.0)
[2017-04-25] MEDS ORDERED: NS IV 500 ML 500 ML IV ONE ×2 (16:43→17:26)
[2017-04-25 16:50] LABS: INR 1.3 (0.8-1.4); PROTHROMBIN TIME PATIENT 15.9 SEC (12.2-14.7)
[2017-04-25 17:01] LABS: ALBUMIN 3.2 GM/DL (3.2-4.5); BILIRUBIN,TOTAL 0.5 MG/DL (0.1-1.0); CALCIUM 9.4 MG/DL (8.5-10.1); CREATININE SERUM 2.72 MG/DL (0.60-1.30); TOTAL PROTEIN 8.6 GM/DL (6.4-8.2)
--- NOTE | 2017-04-25 17:02 | Diagnostic Imaging Report ---
Portable erect AP chest at 4:51 p.m. INDICATION: Nausea and vomiting. FINDINGS: The heart size is within normal limits and stable when compared to 12/03/2016. The lungs are clear. There is no evidence for failure, pneumonia or for pleural effusion. Mediastinum is not widened. The osseous structures are intact. IMPRESSION: There is no evidence for active disease. Dictated by: Dictated on workstation # [id number]
--- NOTE | 2017-04-25 17:51 | Diagnostic Imaging Report ---
PROCEDURE: CT abdomen and pelvis without contrast. TECHNIQUE: Multiple contiguous axial images were obtained through the abdomen and pelvis without the use of intravenous contrast. INDICATION: Nausea and vomiting for five days. Bilateral leg pain. FINDINGS: There is dense material and peripheral hepatic veins in the anterior right lobe. There is a 17 mm low-density lesion in the right lobe as well. There is an adjacent calcification or fiducial marker. These findings are similar to 11/20/2016 study. There is splenomegaly. Pancreas and adrenals are normal. There are multiple bilateral nonobstructing kidney stones present. No ureteral stone or hydronephrosis is seen on either side. The bladder is normal. There is diverticulosis of the colon with no evidence of diverticulitis or other acute bowel abnormality. There is no aortic aneurysm. There is no free intraperitoneal air or fluid. There is no acute bony abnormality. IMPRESSION: There is splenomegaly. There are bilateral nonobstructing renal stones present. No acute abnormality is seen with no change from 11/20/2016. Dictated by: Dictated on workstation # [id number]
[2017-04-25] MEDS ORDERED: cefTRIAXone 1,000 MG/NS 50 ML IVPB IV SCH ×2 (18:00)
[2017-04-25] MEDS ORDERED: cefTRIAXone INJECTION 1,000 MG in NS (IVPB) 50 ML IV ONE (18:15)
[2017-04-25 19:00] VITALS: BP 137/76
[2017-04-25 19:39] LABS: ALBUMIN 2.9 GM/DL (3.2-4.5); BILIRUBIN,TOTAL 0.4 MG/DL (0.1-1.0); CREATININE SERUM 2.63 MG/DL (0.60-1.30); POTASSIUM 6.2 MMOL/L (3.6-5.0); TOTAL PROTEIN 7.7 GM/DL (6.4-8.2)
[2017-04-25 20:16] VITALS: BP 136/61
[2017-04-25] MEDS ORDERED: RT-ALBUTEROL/IPRATROPIUM 3 ML (DUONEB) VIAL INH PRN (20:30)
[2017-04-25] MEDS ORDERED: fentaNYL INJECTION 100 MCG/2 ML AMP IV PRN (21:30)
[2017-04-25] MEDS: NS IV 1000 ML 1,000 ML IV SCH (22:22)
[2017-04-26] VITALS: BP 130/60
[2017-04-26] MEDS: fentaNYL INJECTION 100 MCG/2 ML AMP IVP PRN ×7 (00:11→14:29)
[2017-04-26 04:00] VITALS: BP 140/63
[2017-04-26] MEDS: ONDANSETRON 4 MG/2 ML (SDV) Z0FRAN IV PRN ×2 (04:14→08:41)
[2017-04-26 05:52] LABS: BASOPHILS % (AUTO) 0 % (0-10); EOSINOPHILS % (AUTO) 1 % (0-10); HEMATOCRIT 22 % (40-54); HEMOGLOBIN 7.4 G/DL (13.3-17.7); LYMPHOCYTES # (AUTO) 0.4 X 10^3 (1.0-4.0); LYMPHOCYTES % (AUTO) 12 % (12-44); MEAN CORPUSCULAR HEMOGLOBIN 31 PG (25-34); MEAN CORPUSCULAR HGB CONC 33 G/DL (32-36); MEAN CORPUSCULAR VOLUME 94 FL (80-99); MEAN PLATELET VOLUME 9.2 FL (7.4-10.4); MONOCYTES # (AUTO) 0.2 X 10^3 (0.0-1.0); MONOCYTES % (AUTO) 7 % (0-12); NEUTROPHILS # (AUTO) 2.6 X 10^3 (1.8-7.8); NEUTROPHILS % (AUTO) 79 % (42-75); PLATELET COUNT 94 10^3/uL (130-400); RED BLOOD COUNT 2.39 10^6/uL (4.35-5.85); RED CELL DISTRIBUTION WIDTH 12.9 % (10.0-14.5); WHITE BLOOD COUNT 3.3 10^3/uL (4.3-11.0)
[2017-04-26] MEDS: NS IV 1000 ML 1,000 ML IV SCH ×2 (05:53→12:53)
[2017-04-26] MEDS ORDERED: CATHETER FLUSH 10 ML SYR IV PRN (07:30)
[2017-04-26] MEDS ORDERED: INFLUENZA TRIvalent 2017-2018 0.5 ML/45 MCG SYR IM ONE (07:30)
[2017-04-26 07:44] VITALS: BP 147/58
--- OUTSIDE RECORDS SUMMARY | 2017-04-26 11:26 | XMS REPORT | Clinical Summary ---
Author Author [facility] Organization [facility] Address Unknown Phone Unavailable Care Team Providers Care Lock Installer Name Role Phone No Pcp, Na PCP Unavailable Source Comments Some departments are not documenting in the electronic medical record. If you do not see the information that you expected, contact Release of Information in the Health Information Management department at [phone] for further assistance in locating additional records.[facility] Allergies No Known Allergies Current Medications Prescription [...] Active Problems Problem Noted Date Pain 10/17/2016 Social History Tobacco Use Types Packs/Day Years [...] 01/20/2004 SCREENING SHINGLES VACCINE 2014 INFLUENZA VACCINE 10/14/2016 Implants Implanted Type Area [employer] Device Expiration Model / Identifier Date Serial / Lot Lc [employer] 70 - 150 Black Label - Liver BIOCOMPATIBLES [id number] 07/13/2017 [id number] / Sn/A [employer]-IR RADIOLOG 1151 N/A / Implanted: Qty: 2 on 10/17/2016 by [id number] Leonard Hernandez MD Device Closure 70cm 6fr Angio-Seal Right: [facility] [employer] 05/13/2017 [id number] / Vip .035in Vascular - Sn/A Femoral N/A / Implanted: Qty: 1 on 10/17/2016 by Artery [id number] Leonard Hernandez MD Results Not on filefrom Last 3 Months
--- OUTSIDE RECORDS SUMMARY | 2017-04-26 11:26 | XMS REPORT | Continuity of Care Document ---
Author Author [employer] Organization [facility] Address Unknown Phone Unavailable Care Team Providers Care Manager Meat Name Role Phone [employer] Unavailable Unavailable Problems Medications Allergies, Adverse Reactions, Alerts Immunizations Results Vital Signs Encounters Location Location Details Encounter Type Encounter Number Reason For Visit Attending Provider ADM Date DC Date Status Source OP SURGERY [id number] BOYD LEE Active [facility] Wilfrid Active [facility] Procedures Plan of Care Social History Assessment and Plan Family History Advance Directives Functional Status
--- OUTSIDE RECORDS SUMMARY | 2017-04-26 11:27 | XMS REPORT ---
Author Author NIRANJAN CUNNINGHAM [facility] Address [address] [place] [address] Care Team Providers Care Frog Shaker Name Role Phone NIRANJAN CUNNINGHAM Unavailable PROBLEMS Type Condition ICD9-CM Code [id number] Code Onset Dates Condition Status SNOMED Code Problem Type 2 diabetes mellitus with complication E11.8 Active 07179075 Problem Diabetes mellitus E11.9 Active 01698155 Problem Right-sided low back pain without sciatica M54.5 Active 478973302 Problem Renal insufficiency N28.9 Active 504475204 Problem FH: sudden cardiac (SCD) Z82.41 Active 594865562652785 Problem Syncopal episodes R55 Active 536798275 Problem Chronic venous stasis dermatitis of both lower extremities I87.2 Active 72469586 Problem Skin infection L08.9 Active 118590534 Problem Essential hypertension I10 Active 01014893 Problem Acquired hypothyroidism E03.9 Active 426565110 Problem Neuropathy G62.9 Active 895821182 Problem Diabetic polyneuropathy associated with type 2 diabetes mellitus E11.42 Active 13070279 ALLERGIES No Information SOCIAL HISTORY Never Assessed PLAN OF CARE VITAL SIGNS MEDICATIONS Medication Instructions Dosage Frequency Start Date End Date Duration Status Levothyroxine Sodium 88 MCG Orally Once a day 1 tablet 24h Active RESULTS No Results PROCEDURES No Known procedures IMMUNIZATIONS No Known Immunizations MEDICAL (GENERAL) HISTORY Type Description Date Medical History kidney stones Medical History hernia abdominal after GB surgery 18-19 years ago Medical History Patient is deaf, able to read lips Medical History type II diabetes Medical History Hearing Loss Congenital Medical History Back Pain Medical History 04-05-16 Hospitalized [facility] [place] Hgb 6. Large hiatal hernia, Superficial Ulceration Atrium, Distal Esophagitis-EGD & Colonoscopy. No Def cause of ALEXA and referred to Hematology Medical History A Positive Transfused 2016 Medical History Liver carcinoma via bx [facility] chemo and ablation 2016 Surgical History cholecystectomy Surgical History surgery on bilateral feet as a child Hospitalization History Hospitalized for kidney stones 1992 Hospitalization History blood transfustion at may 2016 Hospitalization History Decreased Hgb 03/2016
--- OUTSIDE RECORDS SUMMARY | 2017-04-26 11:27 | XMS REPORT ---
Author Author NIRANJAN CUNNINGHAM Organization [facility] Address [address] [place] [address] Care Team Providers Care Water Control Station Engineer Name Role Phone NIRANJAN CUNNINGHAM Unavailable PROBLEMS Type Condition ICD9-CM Code [id number] Code Onset Dates Condition Status SNOMED Code Problem Type 2 diabetes mellitus with complication E11.8 Active 78655789 Problem Diabetes mellitus E11.9 Active 66924639 Problem Right-sided low back pain without sciatica M54.5 Active 620859769 Problem Renal insufficiency N28.9 Active 929656206 Problem FH: sudden cardiac (SCD) Z82.41 Active 459205469202446 Problem Syncopal episodes R55 Active 635832127 Problem Chronic venous stasis dermatitis of both lower extremities I87.2 Active 12583705 Problem Skin infection L08.9 Active 340765339 Problem Essential hypertension I10 Active 02617487 Problem Acquired hypothyroidism E03.9 Active 619150025 Problem Neuropathy G62.9 Active 004943478 Problem Diabetic polyneuropathy associated with type 2 diabetes mellitus E11.42 Active 41725977 ALLERGIES No Information SOCIAL HISTORY Never Assessed PLAN OF CARE VITAL SIGNS MEDICATIONS Medication Instructions Dosage Frequency Start Date End Date Duration Status Lyrica 100 mg Orally Twice a day 1 capsule 12h 14 May, 2016 30 days Active RESULTS No Results PROCEDURES No Known procedures IMMUNIZATIONS No Known Immunizations MEDICAL (GENERAL) HISTORY Type Description Date Medical History kidney stones Medical History hernia abdominal after GB surgery 18-19 years ago Medical History Patient is deaf, able to read lips Medical History type II diabetes Medical History Hearing Loss Congenital Medical History Back Pain Medical History 04-05-[address] [facility] [place] Hgb 6. Large hiatal hernia, Superficial Ulceration Atrium, Distal Esophagitis-EGD & Colonoscopy. No Def cause of ALEXA and referred to Hematology Medical History A Positive Transfused 2016 Surgical History cholecystectomy Surgical History surgery on bilateral feet as a child Hospitalization History Hospitalized for kidney stones 1992 Hospitalization History blood transfustion at may 2016 Hospitalization History Decreased Hgb 03/2016
--- OUTSIDE RECORDS SUMMARY | 2017-04-26 11:27 | XMS REPORT ---
Author Author NIRANJAN CUNNINGHAM [facility] Address [address] [place] [address] Care Team Providers Care Renewal Specialist Name Role Phone NIRANJAN CUNNINGHAM Unavailable PROBLEMS Type Condition ICD9-CM Code BNE97-[id number] Code Onset Dates Condition Status SNOMED Code Problem Type 2 diabetes mellitus with complication E11.8 Active 38408052 Problem Diabetes mellitus E11.9 Active 09840589 Problem Right-sided low back pain without sciatica M54.5 Active 781942587 Problem Renal insufficiency N28.9 Active 482717237 Problem FH: sudden cardiac (SCD) Z82.41 Active 089923919221318 Problem Syncopal episodes R55 Active 816885374 Problem Chronic venous stasis dermatitis of both lower extremities I87.2 Active 48751852 Problem Skin infection L08.9 Active 126435935 Problem Essential hypertension I10 Active 86390792 Problem Acquired hypothyroidism E03.9 Active 971739471 Problem Neuropathy G62.9 Active 750172534 Problem Diabetic polyneuropathy associated with type 2 diabetes mellitus E11.42 Active 38764482 ALLERGIES No Information SOCIAL HISTORY Never Assessed PLAN OF CARE VITAL SIGNS MEDICATIONS Unknown [...] History Back Pain Medical History 04-05-16 Hospitalized [facility] Hgb 6. Large hiatal hernia, Superficial Ulceration [...]
--- OUTSIDE RECORDS SUMMARY | 2017-04-26 11:28 | XMS REPORT ---
Author Author NIRANJAN CUNNINGHAM Organization [facility] Address [address] [place] [address] Care Team Providers Care Parimutuel Cashier Name Role Phone NIRANJAN CUNNINGHAM Unavailable PROBLEMS Type Condition ICD9-CM Code [id number]-BE Code Onset Dates Condition Status SNOMED Code Problem Type 2 diabetes mellitus with complication E11.8 Active 30878057 Problem Diabetes mellitus E11.9 Active 18976047 Problem Right-sided low back pain without sciatica M54.5 Active 650148084 Problem Renal insufficiency N28.9 Active 300228450 Problem FH: sudden cardiac (SCD) Z82.41 Active 338475134782711 Problem Syncopal episodes R55 Active 595095194 Problem Chronic venous stasis dermatitis of both lower extremities I87.2 Active 93275569 Problem Skin infection L08.9 Active 550711052 Problem Essential hypertension I10 Active 36050807 Problem Acquired hypothyroidism E03.9 Active 568633605 Problem Neuropathy G62.9 Active 450908359 Problem Diabetic polyneuropathy associated with type 2 diabetes mellitus E11.42 Active 55228200 ALLERGIES No Information SOCIAL HISTORY Never Assessed [...] History Back Pain Medical History 04-05-16 Hospitalized [facility] [place] Hgb 6. Large hiatal hernia, Superficial Ulceration Atrium, Distal Esophagitis-EGD & Colonoscopy. No Def cause of ALEXA and referred to Hematology Medical History A Positive Transfused 2016 Medical History Liver carcinoma via bx [facility] chemo and ablation 2016 Surgical History cholecystectomy Surgical History surgery on bilateral feet as a child Hospitalization History Hospitalized for kidney stones 1992 Hospitalization History blood transfustion at [facility] may 2016 Hospitalization History Decreased Hgb 03/2016
--- OUTSIDE RECORDS SUMMARY | 2017-04-26 11:28 | XMS REPORT ---
Author Author NIRANJAN CUNNINGHAM [facility] Address [address] [place] [address] Care Team Providers Care Bar Assistant Name Role Phone NIRANJAN CUNNINGHAM Unavailable PROBLEMS Type Condition ICD9-CM Code QIS97-SL Code Onset Dates Condition Status SNOMED Code Problem Type 2 diabetes mellitus with complication E11.8 Active 99267175 Problem Diabetes mellitus E11.9 Active 69521071 Problem Right-sided low back pain without sciatica M54.5 Active 671674796 Problem Renal insufficiency N28.9 Active 456509723 Problem FH: sudden cardiac (SCD) Z82.41 Active 445965015571013 Problem Syncopal episodes R55 Active 306097568 Problem Chronic venous stasis dermatitis of both lower extremities I87.2 Active 97317518 Problem Skin infection L08.9 Active 569800320 Problem Essential hypertension I10 Active 41884544 Problem Acquired hypothyroidism E03.9 Active 071093546 Problem Neuropathy G62.9 Active 496364343 Problem Diabetic polyneuropathy associated with type 2 diabetes mellitus E11.42 Active 66005373 ALLERGIES No Information SOCIAL HISTORY Never Assessed [...]
--- OUTSIDE RECORDS SUMMARY | 2017-04-26 11:28 | XMS REPORT ---
Author Author NIRANJAN CUNNINGH[facility] Address [address] [place] [address] Care Team Providers Care Laborer/Grade Check Name Role Phone NIRANJAN CUNNINGHAM Unavailable PROBLEMS Type Condition ICD9-CM Code [id number] Code Onset Dates Condition Status SNOMED Code Problem Type 2 diabetes mellitus with complication E11.8 Active 84615132 Problem Diabetes mellitus E11.9 Active 62160327 Problem Right-sided low back pain without sciatica M54.5 Active 279897043 Problem Renal insufficiency N28.9 Active 104186380 Problem FH: sudden cardiac (SCD) Z82.41 Active 676222065802282 Problem Syncopal episodes R55 Active 699633097 Problem Chronic venous stasis dermatitis of both lower extremities I87.2 Active 68439052 Problem Skin infection L08.9 Active 510281715 Problem Essential hypertension I10 Active 29845415 Problem Acquired hypothyroidism E03.9 Active 814218508 Problem Neuropathy G62.9 Active 380559862 Problem Diabetic polyneuropathy associated with type 2 diabetes mellitus E11.42 Active 49681708 ALLERGIES No Information SOCIAL HISTORY Never Assessed [...]
--- OUTSIDE RECORDS SUMMARY | 2017-04-26 11:29 | XMS REPORT | Continuity of Care Document ---
Author Author [facility] Organization [facility] Address Unknown Phone Unavailable Allergies Active Description Code Type Severity Reaction Onset Reported/Identified Relationship to Patient Clinical Status Yes No Known Drug Allergies [id number] Drug Allergy Unknown N/A 05/01/2016 Medications There is no data. Problems Date Dx Coded Attending Type Code [...] TYPE 2 DIABETES MELLITUS WITHOUT COMPLIC 04/28/2016 CEHRRIE CROOKS MD Ot E66.9 OBESITY, UNSPECIFIED 04/28/2016 [...] FOR OTHER PREPROCEDURAL EXAMIN 05/12/2016 NAKUL ROSENTHAL, ARTEIMO M Ot D50.0 IRON DEFICIENCY ANEMIA SECONDARY [...] Larios Ot D50.9 IRON DEFICIENCY ANEMIA, UNSPECIFIED 06/02/2016 NAKUL ROSENTHAL, ARTEMIO Larios Ot D50.9 IRON DEFICIENCY ANEMIA, UNSPECIFIED 06/02/2016 NAKUL ROSENTHAL, ARTEMIO Larios Ot E03.9 HYPOTHYROIDISM, UNSPECIFIED 06/02/2016 NAKUL ROSENTHAL, ARTEMIO Larios Ot E11.9 TYPE 2 DIABETES MELLITUS WITHOUT COMPLIC 06/02/2016 NAKUL ROSENTHAL, ARTEMIO Larios Ot I10 ESSENTIAL (PRIMARY) HYPERTENSION 06/02/2016 NAKUL ROSENTHAL, ARTEMIO Larios Ot K20.9 ESOPHAGITIS, UNSPECIFIED 06/02/2016 NAKUL ROSENTHAL, ARTEMIO Larios Ot K44.9 DIAPHRAGMATIC HERNIA WITHOUT OBSTRUCTION 06/02/2016 NAKUL ROSENTHAL, ARTEMIO Larios Ot Z01.89 ENCOUNTER FOR OTHER SPECIFIED SPECIAL EX 06/03/2016 NAKUL ROSENTHAL, ARTEMIO Larios Ot D50.9 IRON DEFICIENCY ANEMIA, UNSPECIFIED 06/03/2016 NAKUL ROSENTHAL, ARTEMIO Larios Ot E03.9 HYPOTHYROIDISM, UNSPECIFIED 06/03/2016 NAKUL ROSENTHAL, ARTEMIO M Ot I10 ESSENTIAL (PRIMARY) HYPERTENSION 06/03/2016 NAKUL ROSENTHAL, ARTEMIO Larios Ot K20.9 ESOPHAGITIS, UNSPECIFIED 06/03/2016 NAKUL ROSENTHAL, ARTEMIO Larios Ot K44.9 DIAPHRAGMATIC HERNIA WITHOUT OBSTRUCTION 06/03/2016 NAKUL ROSENTHAL, ARTEMIO Larios Ot D50.9 IRON DEFICIENCY ANEMIA, UNSPECIFIED 06/03/2016 NAKUL ROSENTHAL, ARTEMIO Larios Ot E03.9 HYPOTHYROIDISM, UNSPECIFIED 06/03/2016 NAKUL ROSENTHAL, ARTEMIO Larios Ot E11.9 TYPE 2 DIABETES MELLITUS WITHOUT COMPLIC 06/03/2016 NAKUL ROSENTHAL, ARTEMIO M Ot I10 ESSENTIAL (PRIMARY) HYPERTENSION 06/03/2016 NAKUL ROSENTHAL, ARTEMIO Larios Ot K20.9 ESOPHAGITIS, UNSPECIFIED 06/03/2016 NAKUL ROSENTHAL, ARTEMIO Larios Ot K44.9 DIAPHRAGMATIC HERNIA WITHOUT OBSTRUCTION 06/10/2016 NAKUL ROSENTHAL, ARTEMIO Larios Ot D50.9 IRON DEFICIENCY ANEMIA, UNSPECIFIED 06/11/2016 NAKUL ROSENTHAL, ARTEMIO Larios Ot D50.9 IRON DEFICIENCY ANEMIA, UNSPECIFIED 06/11/2016 ARTEMIO MOAT MD Ot E03.9 HYPOTHYROIDISM, UNSPECIFIED 06/11/2016 ARTEMIO MOTA MD Ot E11.9 TYPE 2 DIABETES MELLITUS WITHOUT COMPLIC 06/11/2016 ARTEMIO MOTA MD Ot I10 ESSENTIAL (PRIMARY) HYPERTENSION 06/11/2016 ARTEMIO MOTA MD Ot K20.9 ESOPHAGITIS, UNSPECIFIED 06/11/2016 ARTEMIO MOTA MD Ot K44.9 DIAPHRAGMATIC HERNIA WITHOUT OBSTRUCTION 06/11/2016 CHERRIE CROOKS MD Ot E11.9 TYPE 2 DIABETES MELLITUS WITHOUT COMPLIC 06/11/2016 CHERRIE CROOKS MD Ot E66.9 OBESITY, UNSPECIFIED 06/11/2016 CHERRIE CROOKS MD Ot I10 ESSENTIAL (PRIMARY) HYPERTENSION 06/11/2016 CHERRIE CROOKS MD Ot R55 SYNCOPE AND COLLAPSE 06/11/2016 TAYTHOMAS Ot D64.9 ANEMIA, UNSPECIFIED 06/11/2016 ARTEMIO MOTA MD Ot D50.9 IRON DEFICIENCY ANEMIA, UNSPECIFIED 06/11/2016 ARTEMIO MOTA MD Ot D50.0 IRON DEFICIENCY ANEMIA SECONDARY TO BLOO 06/11/2016 ARTEMIO MOTA MD Ot Z01.818 ENCOUNTER FOR OTHER PREPROCEDURAL EXAMIN 06/11/2016 ARTEMIO MOTA MD Ot D50.9 IRON DEFICIENCY ANEMIA, UNSPECIFIED 06/11/2016 ARTEMIO MOTA MD Ot K29.70 GASTRITIS, UNSPECIFIED, WITHOUT BLEEDING 06/11/2016 ARTEMIO MOTA MD Ot Z01.818 ENCOUNTER FOR OTHER PREPROCEDURAL EXAMIN 06/11/2016 RILEY YIP AGRICULTURE MECHANIC Ot I87.2 VENOUS INSUFFICIENCY (CHRONIC) (PERIPHER 06/11/2016 RILEY YIP AGRICULTURE MECHANIC Ot L30.9 DERMATITIS, UNSPECIFIED 06/11/2016 RILEY YIP AGRICULTURE MECHANIC Ot L97.211 NON-PRS CHRONIC ULCER OF RIGHT CALF LIMI 06/11/2016 RILEY YIP AGRICULTURE MECHANIC Ot L97.221 NON-PRS CHRONIC ULCER OF LEFT CALF LIMIT 06/11/2016 ARTEMIO MOTA MD Ot R16.0 HEPATOMEGALY, NOT ELSEWHERE CLASSIFIED 06/12/2016 ARTEMIO MOTA MD Ot R16.0 HEPATOMEGALY, NOT ELSEWHERE CLASSIFIED 06/12/2016 ARTEMIO MOTA MD Ot R16.0 HEPATOMEGALY, NOT ELSEWHERE CLASSIFIED 06/19/2016 THOMAS CROSS Ot D64.9 ANEMIA, UNSPECIFIED 06/19/2016 RILEY YIP AGRICULTURE MECHANIC Ot I87.2 VENOUS INSUFFICIENCY (CHRONIC) (PERIPHER 06/19/2016 RILEY YIP AGRICULTURE MECHANIC Ot L30.9 DERMATITIS, UNSPECIFIED 06/19/2016 RILEY YIP AGRICULTURE MECHANIC Ot L97.211 NON-PRS CHRONIC ULCER OF RIGHT CALF LIMI 06/19/2016 RILEY YIP AGRICULTURE MECHANIC Ot L97.221 NON-PRS CHRONIC ULCER OF LEFT CALF LIMIT 06/20/2016 ARTEMIO MOTA MD Ot D50.9 IRON DEFICIENCY ANEMIA, UNSPECIFIED 06/27/2016 THOMAS CROSS Ot D64.9 ANEMIA, UNSPECIFIED 07/03/2016 ARTEMIO MOTA MD Ot R16.0 HEPATOMEGALY, NOT ELSEWHERE CLASSIFIED 07/10/2016 ARTEMIO MOTA MD Ot D50.9 IRON DEFICIENCY ANEMIA, UNSPECIFIED 07/10/2016 ARTEMIO MOTA MD Ot E03.9 HYPOTHYROIDISM, UNSPECIFIED 07/10/2016 ARTEMIO MOTA MD Ot E11.9 TYPE 2 DIABETES MELLITUS WITHOUT COMPLIC 07/10/2016 ARTEMIO MOTA MD Ot I10 ESSENTIAL (PRIMARY) HYPERTENSION 07/10/2016 ARTEMIO MOTA MD Ot K20.9 ESOPHAGITIS, UNSPECIFIED 07/10/2016 ARTEMIO MOTA MD Ot K44.9 DIAPHRAGMATIC HERNIA WITHOUT OBSTRUCTION 07/10/2016 ARTEMIO MOTA MD Ot Z01.89 ENCOUNTER FOR OTHER SPECIFIED SPECIAL EX 07/12/2016 ARTEMIO MOTA MD Ot R16.0 HEPATOMEGALY, NOT ELSEWHERE CLASSIFIED 07/23/2016 PUMA EDGARP Ot K76.89 OTHER SPECIFIED DISEASES OF LIVER 07/23/2016 PUMA EDGAR BEAN PICKER Ot R93.5 ABN FINDINGS ON DX IMAGING OF ABD REGION 07/23/2016 CHERRIE CROOKS MD Ot E11.9 TYPE 2 DIABETES MELLITUS WITHOUT COMPLIC 07/23/2016 CHERRIE CROOKS MD Ot E66.9 OBESITY, UNSPECIFIED 07/23/2016 CHERRIE CROOKS MD Ot I10 ESSENTIAL (PRIMARY) HYPERTENSION 07/23/2016 VALERIY MD, BASHAR J Ot R55 SYNCOPE AND COLLAPSE 07/23/2016 THOMAS CROSS N Ot D64.9 ANEMIA, UNSPECIFIED 07/23/2016 THOMAS CROSS Ot R93.5 ABN FINDINGS ON DX IMAGING OF ABD REGION 07/23/2016 NAKUL ROSENTHAL, ARTEMIO Larios Ot D50.9 IRON DEFICIENCY ANEMIA, UNSPECIFIED 07/23/2016 NAKUL ROSENTHAL, ARTEMIO Larios Ot D50.0 IRON DEFICIENCY ANEMIA SECONDARY TO BLOO 07/23/2016 NAKUL ROSENTHAL, ARTEMIO M Ot Z01.818 ENCOUNTER FOR OTHER PREPROCEDURAL EXAMIN 07/23/2016 NAKUL ROSENTHAL, ARTEMIO Larios Ot D50.9 IRON DEFICIENCY ANEMIA, UNSPECIFIED 07/23/2016 NAKUL ROSENTHAL, ARTEMIO Larios Ot K29.70 GASTRITIS, UNSPECIFIED, WITHOUT BLEEDING 07/23/2016 NAKUL ROSNETHAL, ARTEMIO M Ot Z01.818 ENCOUNTER FOR OTHER PREPROCEDURAL EXAMIN 07/23/2016 NAKUL ROSENTHAL, ARTEMIO Larios Ot R16.0 HEPATOMEGALY, NOT ELSEWHERE CLASSIFIED 07/23/2016 PUMA EDGAR BEAN PICKER Ot K76.89 OTHER SPECIFIED DISEASES OF LIVER 07/23/2016 PUMA EDGAR BEAN PICKER Ot R93.5 ABN FINDINGS ON DX IMAGING OF ABD REGION 07/27/2016 TAYTHOMAS N Ot D50.9 IRON DEFICIENCY ANEMIA, UNSPECIFIED 07/27/2016 THOMAS CROSS N Ot D64.9 ANEMIA, UNSPECIFIED 07/27/2016 THOMAS CROSS N Ot K76.89 OTHER SPECIFIED DISEASES OF LIVER 07/27/2016 THOMAS CROSS N Ot R16.1 SPLENOMEGALY, NOT ELSEWHERE CLASSIFIED 07/27/2016 THOMAS CROSS N Ot R93.5 ABN FINDINGS ON DX IMAGING OF ABD REGION 07/27/2016 THOMAS CROSS N Ot Z79.899 OTHER LONG-TERM (CURRENT) DRUG THERAPY 07/29/2016 THOAMS CROSS N Ot D50.9 IRON DEFICIENCY ANEMIA, UNSPECIFIED 07/29/2016 THOMAS CROSS N Ot K76.89 OTHER SPECIFIED DISEASES OF LIVER 07/29/2016 TAYTHOMAS PARK N Ot R16.1 SPLENOMEGALY, NOT ELSEWHERE CLASSIFIED 07/29/2016 THOMAS CROSS N Ot R93.5 ABN FINDINGS ON DX IMAGING OF ABD REGION 07/29/2016 THOMAS CROSS N Ot Z79.899 OTHER OILER AND GREASER (CURRENT) DRUG THERAPY 07/30/2016 THOMAS CROSS Miky Ot C22.8 MALIGNANT NEOPLASM OF LIVER, PRIMARY, UN 07/30/2016 THOMAS CROSS N Ot D50.9 IRON DEFICIENCY ANEMIA, UNSPECIFIED 07/30/2016 THOMAS CROSS N Ot K74.60 UNSPECIFIED CIRRHOSIS OF LIVER 08/01/2016 RILEY YIP AGRICULTURE MECHANIC Ot I87.2 VENOUS INSUFFICIENCY (CHRONIC) (PERIPHER 08/01/2016 RILEY YIP AGRICULTURE MECHANIC Ot L30.9 DERMATITIS, UNSPECIFIED 08/07/2016 THOMAS CROSS Miky Ot C22.8 MALIGNANT NEOPLASM OF LIVER, PRIMARY, UN 08/07/2016 TAY CHRISTIANALÓPEZ Miky Ot D50.9 IRON DEFICIENCY ANEMIA, UNSPECIFIED 08/07/2016 THOMAS CROSS N Ot K74.60 UNSPECIFIED CIRRHOSIS OF LIVER 08/14/2016 TAY THOMAS N Ot C22.0 LIVER CELL CARCINOMA 08/14/2016 TAY THOMAS Bolaños Ot D50.9 IRON DEFICIENCY ANEMIA, UNSPECIFIED 08/14/2016 THOMAS CROSS N Ot D61.818 OTHER PANCYTOPENIA 08/14/2016 THOMAS CROSS N Ot R16.1 SPLENOMEGALY, NOT ELSEWHERE CLASSIFIED 08/16/2016 TAY THOMAS Bolaños Ot C22.8 MALIGNANT NEOPLASM OF LIVER, PRIMARY, UN 08/16/2016 TAY CHRISTIANALÓPEZ N Ot D50.9 IRON DEFICIENCY ANEMIA, UNSPECIFIED 08/16/2016 TAY CHRISTIANALÓPEZ N Ot K74.60 UNSPECIFIED CIRRHOSIS OF LIVER 08/22/2016 PUMA EDGAR BEAN PICKER Ot K76.89 OTHER SPECIFIED DISEASES OF LIVER 08/22/2016 PUMA EDGAR BEAN PICKER Ot R93.5 ABN FINDINGS ON DX IMAGING OF ABD REGION 08/25/2016 PUMA EDGAR BEAN PICKER Ot K76.89 OTHER SPECIFIED DISEASES OF LIVER 08/25/2016 PUMA EDGAR BEAN PICKER Ot R93.5 ABN FINDINGS ON DX IMAGING OF ABD REGION 08/27/2016 TAY THOMAS N Ot C22.8 MALIGNANT NEOPLASM OF LIVER, PRIMARY, UN 08/27/2016 TAYTHOMAS N Ot D50.9 IRON DEFICIENCY ANEMIA, UNSPECIFIED 08/27/2016 TAYTHOMAS N Ot K74.60 UNSPECIFIED CIRRHOSIS OF LIVER 08/28/2016 NAKUL ROSENTHAL, ARTEMIO Larios Ot D50.9 IRON DEFICIENCY ANEMIA, UNSPECIFIED 08/28/2016 NAKUL ROSENTHAL, ARTEMIO Larios Ot E03.9 HYPOTHYROIDISM, UNSPECIFIED 08/28/2016 NAKUL ROSENTHAL, ARTEMIO Larios Ot E11.9 TYPE 2 DIABETES MELLITUS WITHOUT COMPLIC 08/28/2016 NAKUL ROSENTHAL, ARTEMIO Larios Ot I10 ESSENTIAL (PRIMARY) HYPERTENSION 08/28/2016 NAKUL ROSENTHAL, ARTEMIO Larios Ot K20.9 ESOPHAGITIS, UNSPECIFIED 08/28/2016 NAKUL ROSENTHAL, ARTEMIO Larios Ot K44.9 DIAPHRAGMATIC HERNIA WITHOUT OBSTRUCTION 08/28/2016 NAKUL ROSENTHAL, ARTEMIO Larios Ot Z01.89 ENCOUNTER FOR OTHER SPECIFIED SPECIAL EX 09/03/2016 RILEY YIP AGRICULTURE MECHANIC Ot E11.628 TYPE 2 DIABETES MELLITUS WITH OTHER SKIN 09/03/2016 RILEY YIP AGRICULTURE MECHANIC Ot I10 ESSENTIAL (PRIMARY) HYPERTENSION 09/03/2016 RILEY YIP AGRICULTURE MECHANIC Ot I87.2 VENOUS INSUFFICIENCY (CHRONIC) (PERIPHER 09/03/2016 RILEY YIP AGRICULTURE MECHANIC Ot L30.9 DERMATITIS, UNSPECIFIED 09/05/2016 THOMAS CROSS N Ot C22.0 LIVER CELL CARCINOMA 09/05/2016 THOMAS CROSS N Ot D50.9 IRON DEFICIENCY ANEMIA, UNSPECIFIED 09/05/2016 TAY, CHRISTIANAAN N Ot D61.818 OTHER PANCYTOPENIA 09/05/2016 THOMAS CORSS N Ot R16.1 SPLENOMEGALY, NOT ELSEWHERE CLASSIFIED 09/11/2016 THOMAS CROSS N Ot C22.0 LIVER CELL CARCINOMA 09/11/2016 TAYTHOMAS N Ot D50.9 IRON DEFICIENCY ANEMIA, UNSPECIFIED 09/11/2016 TAY, BOBAN N Ot D61.818 OTHER PANCYTOPENIA 09/11/2016 TAY THOMAS N Ot R16.1 SPLENOMEGALY, NOT ELSEWHERE CLASSIFIED 10/13/2016 VICKI RODRIGUEZ AGRICULTURE MECHANIC Ot C22.8 MALIGNANT NEOPLASM OF LIVER, PRIMARY, UN 10/14/2016 VICKI RODRIGUEZ AGRICULTURE MECHANIC Ot C22.8 MALIGNANT NEOPLASM OF LIVER, PRIMARY, UN 10/14/2016 VICKI RODRIGUEZ AGRICULTURE MECHANIC Ot C22.8 MALIGNANT NEOPLASM OF LIVER, PRIMARY, UN 10/14/2016 JENNIFERVICKI AGRICULTURE MECHANIC Ot C22.8 MALIGNANT NEOPLASM OF LIVER, PRIMARY, UN 10/14/2016 JENNIFER VICKI Larios AGRICULTURE MECHANIC Ot C22.8 MALIGNANT NEOPLASM OF LIVER, PRIMARY, UN 10/14/2016 JENNIFERVICKI Tovar AGRICULTURE MECHANIC Ot C22.8 MALIGNANT NEOPLASM OF LIVER, PRIMARY, UN 10/14/2016 JENNIFER, VICKI Larios AGRICULTURE MECHANIC Ot C22.8 MALIGNANT NEOPLASM OF LIVER, PRIMARY, UN 10/14/2016 JENNIFER VICKI Larios AGRICULTURE MECHANIC Ot C22.8 MALIGNANT NEOPLASM OF LIVER, PRIMARY, UN 11/10/2016 JENNIFERVICKI Tovar AGRICULTURE MECHANIC Ot C22.8 MALIGNANT NEOPLASM OF LIVER, PRIMARY, UN 11/11/2016 THOMAS CROSS Ot C22.0 LIVER CELL CARCINOMA 11/11/2016 THOMAS CROSS Ot D50.9 IRON DEFICIENCY ANEMIA, UNSPECIFIED 11/11/2016 THOMAS CROSS Ot D61.818 OTHER PANCYTOPENIA 11/11/2016 THOMAS CROSS Ot R16.1 SPLENOMEGALY, NOT ELSEWHERE CLASSIFIED 11/12/2016 ROYAL KAYE MD Ot E11.628 TYPE 2 DIABETES MELLITUS WITH OTHER SKIN 11/12/2016 VARGAS ROSNETHAL, ROYAL Jacinto Ot I10 ESSENTIAL (PRIMARY) HYPERTENSION 11/12/2016 ROYAL KAYE MD Ot I87.2 VENOUS INSUFFICIENCY (CHRONIC) (PERIPHER 11/12/2016 ROYAL KAYE MD Ot K74.60 UNSPECIFIED CIRRHOSIS OF LIVER 11/12/2016 ROYAL KAYE MD Ot L30.9 DERMATITIS, UNSPECIFIED 11/18/2016 VICKI RODRIGUEZ AGRICULTURE MECHANIC Ot C22.8 MALIGNANT NEOPLASM OF LIVER, PRIMARY, UN 11/21/2016 THOMAS CROSS Ot C22.0 LIVER CELL CARCINOMA 11/21/2016 THOMAS CROSS Ot D50.9 IRON DEFICIENCY ANEMIA, UNSPECIFIED 11/21/2016 THOMAS CROSS Ot D61.818 OTHER PANCYTOPENIA 11/21/2016 THOMAS CROSS Ot R16.1 SPLENOMEGALY, NOT ELSEWHERE CLASSIFIED 11/28/2016 CHERRIE CROOKS MD Ot E11.9 TYPE 2 DIABETES MELLITUS WITHOUT COMPLIC 11/28/2016 CHERRIE CROOKS MD Ot E66.9 OBESITY, UNSPECIFIED 11/28/2016 VALERIY ROSENTHAL, CHERRIE Johnson Ot I10 ESSENTIAL (PRIMARY) HYPERTENSION 11/28/2016 VALERIY ROSENTHAL, CHERRIE Johnson Ot R55 SYNCOPE AND COLLAPSE 11/28/2016 NAKUL ROSENTHAL, ARTEMIO Larios Ot D50.9 IRON DEFICIENCY ANEMIA, UNSPECIFIED 11/28/2016 NAKUL ROSENTHAL, ARTEMIO Larios Ot D50.0 IRON DEFICIENCY ANEMIA SECONDARY TO BLOO 11/28/2016 NAKUL ROSENTHAL, ARTEMIO Larios Ot Z01.818 ENCOUNTER FOR OTHER PREPROCEDURAL EXAMIN 11/28/2016 NAKUL ROSENTHAL, ARTEMIO Larios Ot D50.9 IRON DEFICIENCY ANEMIA, UNSPECIFIED 11/28/2016 NAKUL ROSENTHAL, ARTEMIO Larios Ot K29.70 GASTRITIS, UNSPECIFIED, WITHOUT BLEEDING 11/28/2016 NAKUL ROSENTHAL, ARTEMIO Larios Ot Z01.818 ENCOUNTER FOR OTHER PREPROCEDURAL EXAMIN 11/28/2016 ARTEMIO MOTA MD Ot R16.0 HEPATOMEGALY, NOT ELSEWHERE CLASSIFIED 11/28/2016 PUMA EDGAR BEAN PICKER Ot K76.89 OTHER SPECIFIED DISEASES OF LIVER 11/28/2016 PUMA EDGAR BEAN PICKER Ot R93.5 ABN FINDINGS ON DX IMAGING OF ABD REGION 11/28/2016 VICKI RODRIGUEZ AGRICULTURE MECHANIC Ot C22.8 MALIGNANT NEOPLASM OF LIVER, PRIMARY, UN 11/28/2016 PUMA EDGAR BEAN PICKER Ot C22.0 LIVER CELL CARCINOMA 11/28/2016 ROYAL KAYE MD Ot E11.628 TYPE 2 DIABETES MELLITUS WITH OTHER SKIN 11/28/2016 ROYAL KAYE MD, Ot I10 ESSENTIAL (PRIMARY) HYPERTENSION 11/28/2016 ROYAL KAYE MD Ot I87.2 VENOUS INSUFFICIENCY (CHRONIC) (PERIPHER 11/28/2016 ROYAL KAYE MD Ot K74.60 UNSPECIFIED CIRRHOSIS OF LIVER 11/28/2016 ROYAL KAYE MD, Ot L30.9 DERMATITIS, UNSPECIFIED 11/28/2016 ROYAL KAYE MD, Ot E11.628 TYPE 2 DIABETES MELLITUS WITH OTHER SKIN 11/28/2016 ROYAL KAYE MD, Ot I10 ESSENTIAL (PRIMARY) HYPERTENSION 11/28/2016 ROYAL KAYE MD Ot I87.2 VENOUS INSUFFICIENCY (CHRONIC) (PERIPHER 11/28/2016 ROYAL KAYE MD Ot K74.60 UNSPECIFIED CIRRHOSIS OF LIVER 11/28/2016 ROYAL KAYE MD, Ot L30.9 DERMATITIS, UNSPECIFIED 11/28/2016 THOMAS CROSS N Ot C22.0 LIVER CELL CARCINOMA 11/28/2016 THOMAS CROSS Ot D50.9 IRON DEFICIENCY ANEMIA, UNSPECIFIED 11/28/2016 THOMAS CROSS N Ot D61.818 OTHER PANCYTOPENIA 11/28/2016 THOMAS CROSS Miky Ot R16.1 SPLENOMEGALY, NOT ELSEWHERE CLASSIFIED 11/28/2016 ROYAL KAYE MD, Ot E11.628 TYPE 2 DIABETES MELLITUS WITH OTHER SKIN 11/28/2016 ROYAL KAYE MD, Ot I10 ESSENTIAL (PRIMARY) HYPERTENSION 11/28/2016 ROYAL KAYE MD, Ot I87.2 VENOUS INSUFFICIENCY (CHRONIC) (PERIPHER 11/28/2016 ROYAL KAYE MD, Ot K74.60 UNSPECIFIED CIRRHOSIS OF LIVER 11/28/2016 ROYAL KAYE MD, Ot L30.9 DERMATITIS, UNSPECIFIED 11/28/2016 ROYAL KAYE MD Ot E11.51 TYPE 2 DIABETES W DIABETIC PERIPHERAL AN 11/28/2016 ROYAL KAYE MD, Ot I10 ESSENTIAL (PRIMARY) HYPERTENSION 11/28/2016 ROYAL KAYE MD Ot R16.2 HEPATOMEGALY WITH SPLENOMEGALY, NOT ELSE 11/28/2016 ROYAL KAYE MD, Ot E11.628 TYPE 2 DIABETES MELLITUS WITH OTHER SKIN 11/28/2016 ROYAL KAYE MD, Ot I10 ESSENTIAL (PRIMARY) HYPERTENSION 11/28/2016 ROYAL KAYE MD, Ot I73.9 PERIPHERAL VASCULAR DISEASE, UNSPECIFIED 11/28/2016 ROYAL KAYE MD Ot K74.60 UNSPECIFIED CIRRHOSIS OF LIVER 11/28/2016 ROYAL KAYE MD, Ot L30.9 DERMATITIS, UNSPECIFIED 11/28/2016 ROYAL KAYE MD, Ot E11.628 TYPE 2 DIABETES MELLITUS WITH OTHER SKIN 11/28/2016 ROYAL KAYE MD, Ot I10 ESSENTIAL (PRIMARY) HYPERTENSION 11/28/2016 ROYAL KAYE MD, Ot I87.2 VENOUS INSUFFICIENCY (CHRONIC) (PERIPHER 11/28/2016 ROYAL KAYE MD Ot K74.60 UNSPECIFIED CIRRHOSIS OF LIVER 11/28/2016 ROYAL KAYE MD, Ot L30.9 DERMATITIS, UNSPECIFIED 11/28/2016 PUMA EDGAR Ot C22.0 LIVER CELL CARCINOMA 11/28/2016 ROYAL KAYE MD, Ot E11.628 TYPE 2 DIABETES MELLITUS WITH OTHER SKIN 11/28/2016 ROYAL KAYE MD, Ot I10 ESSENTIAL (PRIMARY) HYPERTENSION 11/28/2016 ROYAL KAYE MD Ot I87.2 VENOUS INSUFFICIENCY (CHRONIC) (PERIPHER 11/28/2016 ROYAL KAYE MD Ot K74.60 UNSPECIFIED CIRRHOSIS OF LIVER 11/28/2016 ROYAL KAYE MD, Ot L30.9 DERMATITIS, UNSPECIFIED 11/29/2016 EDGARPUMA Nieves BEAN PICKER Ot C22.0 LIVER CELL CARCINOMA 12/03/2016 CHERRIE CROOKS MD Ot D61.818 OTHER PANCYTOPENIA 12/03/2016 CHERRIE CROOKS MD Ot E11.9 TYPE 2 DIABETES MELLITUS WITHOUT COMPLIC 12/03/2016 CHERRIE CROOKS MD, Ot I10 ESSENTIAL (PRIMARY) HYPERTENSION 12/03/2016 CHERRIE CROOKS MD Ot 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 12/03/2016 CHERRIE CROOKS MD Ot K74.60 UNSPECIFIED CIRRHOSIS OF LIVER 12/03/2016 CHERRIE CROOKS MD Ot R16.1 SPLENOMEGALY, NOT ELSEWHERE CLASSIFIED 12/03/2016 CHERRIE CROOKS MD Ot Z79.84 LONG-TERM (CURRENT) USE OF ORAL HYPOGLYC 12/03/2016 CHERRIE CROOKS MD Ot Z79.899 OTHER LONG-TERM (CURRENT) DRUG THERAPY 12/05/2016 ROYAL KAYE MD Ot E11.628 TYPE 2 DIABETES MELLITUS WITH OTHER SKIN 12/05/2016 ROYAL KAYE MD, Ot I10 ESSENTIAL (PRIMARY) HYPERTENSION 12/05/2016 ROYAL KAYE MD Ot I87.2 VENOUS INSUFFICIENCY (CHRONIC) (PERIPHER 12/05/2016 ROYAL KAYE MD Ot K74.60 UNSPECIFIED CIRRHOSIS OF LIVER 12/05/2016 ROYAL KAYE MD, Ot L30.9 DERMATITIS, UNSPECIFIED 12/05/2016 ROYAL KAYE MD Ot E11.628 TYPE 2 DIABETES MELLITUS WITH OTHER SKIN 12/05/2016 ROYAL KAYE MD, Ot I10 ESSENTIAL (PRIMARY) HYPERTENSION 12/05/2016 ROYAL KAYE MD Ot I87.2 VENOUS INSUFFICIENCY (CHRONIC) (PERIPHER 12/05/2016 ROYAL KAYE MD Ot K74.60 UNSPECIFIED CIRRHOSIS OF LIVER 12/05/2016 ROYAL KAYE MD, Ot L30.9 DERMATITIS, UNSPECIFIED 12/05/2016 ROYAL KAYE MD, Ot E11.628 TYPE 2 DIABETES MELLITUS WITH OTHER SKIN 12/05/2016 ROYAL KAYE MD Ot I10 ESSENTIAL (PRIMARY) HYPERTENSION 12/05/2016 ROYAL KAYE MD, Ot I87.2 VENOUS INSUFFICIENCY (CHRONIC) (PERIPHER 12/05/2016 ROYAL KAYE MD, Ot K74.60 UNSPECIFIED CIRRHOSIS OF LIVER 12/05/2016 ROYAL KAYE MD Ot L30.9 DERMATITIS, UNSPECIFIED 12/08/2016 TAY, BOBAN N Ot C22.0 LIVER CELL CARCINOMA 12/08/2016 TAY, BOBAN N Ot D50.9 IRON DEFICIENCY ANEMIA, UNSPECIFIED 12/08/2016 TAY, BOBAN N Ot D61.818 OTHER PANCYTOPENIA 12/08/2016 TAY, BOBAN N Ot R16.1 SPLENOMEGALY, NOT ELSEWHERE CLASSIFIED 12/10/2016 TAY, BOBAN N Ot C22.0 LIVER CELL CARCINOMA 12/10/2016 TAY, BOBAN N Ot D50.9 IRON DEFICIENCY ANEMIA, UNSPECIFIED 12/10/2016 TAY, BOBAN N Ot D61.818 OTHER PANCYTOPENIA 12/10/2016 TAY, BOBAN N Ot R16.1 SPLENOMEGALY, NOT ELSEWHERE CLASSIFIED 12/12/2016 MICHELE KATHLEEN MD Ot E11.628 TYPE 2 DIABETES MELLITUS WITH OTHER SKIN 12/12/2016 MICHELE KATHLEEN MD Ot I10 ESSENTIAL (PRIMARY) HYPERTENSION 12/12/2016 MICHELE KATHLEEN MD Ot I73.9 PERIPHERAL VASCULAR DISEASE, UNSPECIFIED 12/12/2016 MICHELE KATHLEEN MD Ot K74.60 UNSPECIFIED CIRRHOSIS OF LIVER 12/12/2016 MICHELE KATHLEEN MD Ot L30.9 DERMATITIS, UNSPECIFIED 12/12/2016 ROYAL KAYE MD, Ot E11.628 TYPE 2 DIABETES MELLITUS WITH OTHER SKIN 12/12/2016 ROYAL KAYE MD Ot I10 ESSENTIAL (PRIMARY) HYPERTENSION 12/12/2016 ROYAL KAYE MD Ot I87.2 VENOUS INSUFFICIENCY (CHRONIC) (PERIPHER 12/12/2016 ROYAL KAYE MD Ot K74.60 UNSPECIFIED CIRRHOSIS OF LIVER 12/12/2016 ROYAL KAYE MD, Ot L30.9 DERMATITIS, UNSPECIFIED 12/13/2016 TAY, BOBAN N Ot C22.0 LIVER CELL CARCINOMA 12/13/2016 TAY BOBAN N Ot D50.9 IRON DEFICIENCY ANEMIA, UNSPECIFIED 12/13/2016 THOMAS CROSS Ot D61.818 OTHER PANCYTOPENIA 12/13/2016 THOMAS CROSS Ot R16.1 SPLENOMEGALY, NOT ELSEWHERE CLASSIFIED 12/17/2016 CHERRIE CROOKS MD, Ot D61.818 OTHER PANCYTOPENIA 12/17/2016 CHERRIE CROOKS MD Ot E11.9 TYPE 2 DIABETES MELLITUS WITHOUT COMPLIC 12/17/2016 CHERRIE CROOKS MD, Ot I10 ESSENTIAL (PRIMARY) HYPERTENSION 12/17/2016 CHERRIE CROOKS MD Ot 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 12/17/2016 CHERRIE CROOKS MD, Ot K74.60 UNSPECIFIED CIRRHOSIS OF LIVER 12/17/2016 CHERRIE CROOKS MD, Ot R16.1 SPLENOMEGALY, NOT ELSEWHERE CLASSIFIED 12/17/2016 CHERRIE CROOKS MD Ot Z79.84 LONG-TERM (CURRENT) USE OF ORAL HYPOGLYC 12/17/2016 CHERRIE CROOKS MD, Ot Z79.899 OTHER OILER AND GREASER (CURRENT) DRUG THERAPY 12/18/2016 THOMAS CROSS Ot C22.0 LIVER CELL CARCINOMA 12/18/2016 THOMAS CROSS Ot D50.9 IRON DEFICIENCY ANEMIA, UNSPECIFIED 12/18/2016 THOMAS CROSS Ot D61.818 OTHER PANCYTOPENIA 12/18/2016 THOMAS CROSS Ot R16.1 SPLENOMEGALY, NOT ELSEWHERE CLASSIFIED 12/19/2016 ROYAL KAYE MD Ot E11.628 TYPE 2 DIABETES MELLITUS WITH OTHER SKIN 12/19/2016 ROYAL KAYE MD Ot I10 ESSENTIAL (PRIMARY) HYPERTENSION 12/19/2016 ROYAL KAYE MD Ot I73.9 PERIPHERAL VASCULAR DISEASE, UNSPECIFIED 12/19/2016 ROYAL KAYE MD, Ot K74.60 UNSPECIFIED CIRRHOSIS OF LIVER 12/19/2016 ROYAL KAYE MD, Ot L30.9 DERMATITIS, UNSPECIFIED 12/19/2016 PUMA EDGAR Ot C22.0 LIVER CELL CARCINOMA 12/19/2016 ROYAL KAYE MD, Ot E11.51 TYPE 2 DIABETES W DIABETIC PERIPHERAL AN 12/19/2016 ROYAL KAYE MD, Ot I10 ESSENTIAL (PRIMARY) HYPERTENSION 12/19/2016 ROYAL KAYE MD, Ot R16.2 HEPATOMEGALY WITH SPLENOMEGALY, NOT ELSE 12/22/2016 ROYAL KAYE MD, Ot E11.628 TYPE 2 DIABETES MELLITUS WITH OTHER SKIN 12/22/2016 ROYAL KAYE MD Ot I10 ESSENTIAL (PRIMARY) HYPERTENSION 12/22/2016 ROYAL KAYE MD Ot I73.9 PERIPHERAL VASCULAR DISEASE, UNSPECIFIED 12/22/2016 ROYAL KAYE MD Ot K74.60 UNSPECIFIED CIRRHOSIS OF LIVER 12/22/2016 ROYAL KAYE MD Ot L30.9 DERMATITIS, UNSPECIFIED 12/23/2016 ROYAL KAYE MD Ot E11.51 TYPE 2 DIABETES W DIABETIC PERIPHERAL AN 12/23/2016 ROYAL KAYE MD, Ot I10 ESSENTIAL (PRIMARY) HYPERTENSION 12/23/2016 ROYAL KAYE MD Ot R16.2 HEPATOMEGALY WITH SPLENOMEGALY, NOT ELSE 12/26/2016 ROYAL KAYE MD, Ot E11.628 TYPE 2 DIABETES MELLITUS WITH OTHER SKIN 12/26/2016 ROYAL KAYE MD, Ot I10 ESSENTIAL (PRIMARY) HYPERTENSION 12/26/2016 ROYAL KAYE MD, Ot I73.9 PERIPHERAL VASCULAR DISEASE, UNSPECIFIED 12/26/2016 ROYAL KAYE MD Ot K74.60 UNSPECIFIED CIRRHOSIS OF LIVER 12/26/2016 ROYAL KAYE MD, Ot L30.9 DERMATITIS, UNSPECIFIED 12/26/2016 PUMA EDGAR Ot C22.0 LIVER CELL CARCINOMA 12/30/2016 MICHELE KATHLEEN MD Ot E11.628 TYPE 2 DIABETES MELLITUS WITH OTHER SKIN 12/30/2016 MICHELE KATHLEEN MD Ot I10 ESSENTIAL (PRIMARY) HYPERTENSION 12/30/2016 MICHELE KATHLEEN MD Ot I73.9 PERIPHERAL VASCULAR DISEASE, UNSPECIFIED 12/30/2016 MICHELE KATHLEEN MD Ot K74.60 UNSPECIFIED CIRRHOSIS OF LIVER 12/30/2016 MICHELE KATHLEEN MD Ot L30.9 DERMATITIS, UNSPECIFIED 01/09/2017 MICHELE KATHLEEN MD Ot E11.628 TYPE 2 DIABETES MELLITUS WITH OTHER SKIN 01/09/2017 MICHELE KATHLEEN MD Ot I10 ESSENTIAL (PRIMARY) HYPERTENSION 01/09/2017 MICHELE KATHLEEN MD Ot I73.9 PERIPHERAL VASCULAR DISEASE, UNSPECIFIED 01/09/2017 MICHELE KATHLEEN MD Ot K74.60 UNSPECIFIED CIRRHOSIS OF LIVER 01/09/2017 MICHELE KATHLEEN MD Ot L30.9 DERMATITIS, UNSPECIFIED 02/09/2017 ROYAL KAYE MD, Ot E11.628 TYPE 2 DIABETES MELLITUS WITH OTHER SKIN 02/09/2017 ROYAL KAYE MD Ot I10 ESSENTIAL (PRIMARY) HYPERTENSION 02/09/2017 ROYAL KAYE MD Ot I73.9 PERIPHERAL VASCULAR DISEASE, UNSPECIFIED 02/09/2017 ROYAL KAYE MD Ot K74.60 UNSPECIFIED CIRRHOSIS OF LIVER 02/09/2017 ROYAL KAYE MD Ot L30.9 DERMATITIS, UNSPECIFIED 02/16/2017 PUMA EDGAR BEAN PICKER Ot C22.0 LIVER CELL CARCINOMA 02/24/2017 PUMA EDGAR BEAN PICKER Ot C22.0 LIVER CELL CARCINOMA 02/24/2017 PUMA EDGAR BEAN PICKER Ot R16.1 SPLENOMEGALY, NOT ELSEWHERE CLASSIFIED 03/04/2017 RIC CEVALLOS MD, Ot C22.0 LIVER CELL CARCINOMA 03/04/2017 RIC CEVALLOS MD, Ot D50.0 IRON DEFICIENCY ANEMIA SECONDARY TO BLOO 03/04/2017 RIC CEVALLOS MD, Ot E11.9 TYPE 2 DIABETES MELLITUS WITHOUT COMPLIC 03/04/2017 RIC CEVALLOS MD, Ot E66.9 OBESITY, UNSPECIFIED 03/04/2017 RIC CEVALLOS MD, Ot I73.9 PERIPHERAL VASCULAR DISEASE, UNSPECIFIED 03/04/2017 RIC CEVALLOS MD, Ot R16.1 SPLENOMEGALY, NOT ELSEWHERE CLASSIFIED 03/04/2017 RIC CEVALLOS MD, Ot Z68.33 BODY MASS INDEX (BMI) 33.0-33.9, ADULT 03/04/2017 RIC CEVALLOS MD Ot Z79.84 OILER AND GREASER (CURRENT) USE OF ORAL HYPOGLYC 03/04/2017 RIC CEVALLOS MD, Ot Z79.899 OTHER LONG-TERM (CURRENT) DRUG THERAPY 03/13/2017 PUMA EDGAR BEAN PICKER Ot C22.0 LIVER CELL CARCINOMA 03/13/2017 PUMA EDGAR BEAN PICKER Ot R16.1 SPLENOMEGALY, NOT ELSEWHERE CLASSIFIED 03/23/2017 PUMA EDGAR BEAN PICKER Ot C22.0 LIVER CELL CARCINOMA 03/23/2017 PUMA EDGAR BEAN PICKER Ot R16.1 SPLENOMEGALY, NOT ELSEWHERE CLASSIFIED 04/07/2017 RIC CEVALLOS MD, Ot C22.0 LIVER CELL CARCINOMA 04/07/2017 RIC CEVALLOS MD, Ot D50.0 IRON DEFICIENCY ANEMIA SECONDARY TO BLOO 04/07/2017 RIC CEVALLOS MD Ot E11.9 TYPE 2 DIABETES MELLITUS WITHOUT COMPLIC 04/07/2017 RIC CEVALLOS MD Ot E66.9 OBESITY, UNSPECIFIED 04/07/2017 RIC CEVALLOS MD Ot I73.9 PERIPHERAL VASCULAR DISEASE, UNSPECIFIED 04/07/2017 RIC CEVALLOS MD Ot R16.1 SPLENOMEGALY, NOT ELSEWHERE CLASSIFIED 04/07/2017 RIC CEVALLOS MD Ot Z68.33 BODY MASS INDEX (BMI) 33.0-33.9, ADULT 04/07/2017 RIC CEVALLOS MD Ot Z79.84 OILER AND GREASER (CURRENT) USE OF ORAL HYPOGLYC 04/07/2017 RIC CEVALLOS MD Ot Z79.899 OTHER OILER AND GREASER (CURRENT) DRUG THERAPY 04/17/2017 RIC CEVALLOS MD Ot C22.0 LIVER CELL CARCINOMA 04/17/2017 RIC CEVALLOS MD Ot D50.0 IRON DEFICIENCY ANEMIA SECONDARY TO BLOO 04/17/2017 RIC CEVALLOS MD Ot E11.9 TYPE 2 DIABETES MELLITUS WITHOUT COMPLIC 04/17/2017 RIC CEVALLOS MD Ot E66.9 OBESITY, UNSPECIFIED 04/17/2017 RIC CEVALLOS MD Ot I73.9 PERIPHERAL VASCULAR DISEASE, UNSPECIFIED 04/17/2017 RIC CEVALLOS MD Ot R16.1 SPLENOMEGALY, NOT ELSEWHERE CLASSIFIED 04/17/2017 RIC CEVALLOS MD Ot Z68.33 BODY MASS INDEX (BMI) 33.0-33.9, ADULT 04/17/2017 RIC CEVALLOS MD Ot Z79.84 OILER AND GREASER (CURRENT) USE OF ORAL HYPOGLYC 04/17/2017 RIC CEVALLOS MD Ot Z79.899 OTHER LONG-TERM (CURRENT) DRUG THERAPY Procedures There is no data. Results Test Result Range Complete blood count (CBC) with automated white blood cell (WBC) differential - 05/01/16 19:38 Blood leukocytes automated count (number/volume) 2.8 10*3/uL 4.3-11.0 Blood erythrocytes automated count (number/volume) 2.44 10*6/uL 4.35-5.85 Venous blood hemoglobin measurement (mass/volume) 6.9 [...] Automated blood platelet mean volume measurement 9.9 [foz_us] 7.4-10.4 Automated blood neutrophils/100 leukocytes 64 % [...] Serum or plasma sodium measurement (moles/volume) 142 mmol/L 135-145 Serum or plasma potassium measurement (moles/volume) 4.5 mmol/L 3.6-5.0 Serum or plasma chloride measurement (moles/volume) 112 mmol/L 98-107 Carbon dioxide 21 mmol/L 21-32 Serum or plasma anion gap determination (moles/volume) 9 mmol/L 5-14 Serum or plasma urea nitrogen measurement (mass/volume) 30 mg/dL 7-18 Serum or plasma creatinine measurement (mass/volume) 0.97 mg/dL 0.60-1.30 Serum or plasma urea nitrogen/creatinine mass [...] or plasma troponin i.cardiac measurement (mass/volume) < ng/ mL <0.30 Serum or plasma amylase measurement (enzymatic activity/volume) - 05/01/16 19: 38 Serum or plasma amylase measurement (enzymatic activity/volume) 46 U /L 25-125 Lipase - 05/01/16 19:38 Lipase 48 U/L 8-78 RED CELLS LEUKO REDUCED AS1 - 05/01/16 19:38 RED CELLS LEUKO REDUCED AS1 TRANSFUSED 05/02/16 0501 [facility] Blood type T Indirect antibody screen panel - 05/01/16 19:38 ABO+Rh group AP [facility] Transfusion band number [id number] [facility] Blood group antibody screen NEGATIVE NR Bacterial blood culture - 05/01/16 19:38 Bacterial blood culture NG NRG Bacterial blood culture - 05/01/16 19:56 Bacterial blood culture NG [facility] Influenza virus A and B antigen detection - 05/01/16 21:51 FLU RESULT NEGATIVE FOR INFLUENZA A AND B ANTIGENS BY IA [facility] Complete urinalysis with reflex to culture - 05/01/16 22:39 Urine color determination YELLOW NRG Urine clarity determination CLEAR NR Urine pH measurement by test strip 5 5-9 Specific gravity of urine by test strip 1.010 1.016- 1.022 Urine protein assay by test strip, semi-quantitative [...] 09:52 Blood leukocytes automated count (number/volume) 2.7 10*3/uL 4.3-11.0 Blood erythrocytes automated count (number/volume) 2.89 10*6/uL 4.35-5.85 Venous blood hemoglobin measurement (mass/volume) 8.3 [...] Automated blood platelet mean volume measurement 9.5 [foz_us] 7.4-10.4 Automated blood neutrophils/100 leukocytes 72 % [...] Serum or plasma sodium measurement (moles/volume) 139 mmol/L 135-145 Serum or plasma potassium measurement (moles/volume) 4.3 mmol/L 3.6-5.0 Serum or plasma chloride measurement (moles/volume) 111 mmol/L 98-107 Carbon dioxide 21 mmol/L 21-32 Serum or plasma anion gap determination (moles/volume) 7 mmol/L 5-14 Serum or plasma urea nitrogen measurement (mass/volume) 25 mg/dL 7-18 Serum or plasma creatinine measurement (mass/volume) 0.86 mg/dL 0.60-1.30 Serum or plasma urea nitrogen/creatinine mass [...] plasma albumin measurement (mass/volume) 3.4 g/dL 3.2-4.5 Capillary blood glucose measurement by glucometer (mass/volume) - 06/02/16 11: 04 Capillary blood glucose measurement by glucometer (mass/volume) 88 mg/dL 70-110 Serum or plasma urea nitrogen measurement (mass/volume) - 06/02/16 13:44 Serum or plasma urea nitrogen measurement (mass/volume) 25 mg/dL 7-18 Serum or plasma creatinine measurement (mass/volume) - 06/02/16 13:44 Serum or plasma creatinine measurement (mass/volume) 0.87 mg/dL 0.60-1.30 Acute hepatitis panel - 06/02/16 13:44 Confirmatory quantitative serum or plasma hepatitis B virus surface antigen measurement Non-Reactive Non-Reactive Hepatitis A virus IgM antibody assay Non-Reactive Non- Reactive Hepatitis B virus core IgM antibody assay Non-Reactive Non-Reactive Serum hepatitis C virus antibody detection Non-Reactive Non-Reactive Automated blood complete blood count (hemogram) panel - 07/30/16 07:30 Blood leukocytes automated count (number/volume) 2.9 10*3/uL 4.3-11.0 Blood erythrocytes automated count (number/volume) 3.40 10*6/uL 4.35-5.85 Venous blood hemoglobin measurement (mass/volume) 9.7 g/dL 13.3-17.7 Blood hematocrit (volume fraction) 31 % 40-54 Automated erythrocyte mean corpuscular volume 92 [foz_us] 80-99 Automated erythrocyte mean corpuscular hemoglobin (mass per erythrocyte) 29 pg 25-34 Automated erythrocyte mean corpuscular hemoglobin concentration measurement ( mass/volume) 31 g/dL 32-36 Automated erythrocyte distribution width ratio 14.7 % 10.0-14.5 Automated blood platelet count (count/volume) 113 10*3/uL 130-400 Automated blood platelet mean volume measurement 9.4 [foz_us] 7.4-10.4 PT panel in platelet poor plasma by coagulation assay - 07/30/16 07:30 Prothrombin time (PT) in platelet poor plasma by coagulation assay 15.0 s 12.2-14.7 INR in platelet poor plasma or blood by coagulation assay 1.2 0.8-1.4 Activated partial thromboplastin time (aPTT) in platelet poor plasma bycoagulation assay - 07/30/16 07:30 Activated partial thromboplastin time (aPTT) in platelet poor plasma bycoagulation assay 31 s 24-35 Hemoglobin A1c - 11/06/16 11:12 Hemoglobin A1c 6.8 % 4.5-6.2 Automated blood complete blood count (hemogram) panel - 12/03/16 07:25 Blood leukocytes automated count (number/volume) 4.5 10*3/uL 4.3-11.0 Blood erythrocytes automated count (number/volume) 3.74 10*6/uL 4.35-5.85 Venous blood hemoglobin measurement (mass/volume) 11.7 g/dL 13.3-17.7 Blood hematocrit (volume fraction) 35 % 40-54 Automated erythrocyte mean corpuscular volume 94 [foz_us] 80-99 Automated erythrocyte mean corpuscular hemoglobin (mass per erythrocyte) 31 pg 25-34 Automated erythrocyte mean corpuscular hemoglobin concentration measurement ( mass/volume) 33 g/dL 32-36 Automated erythrocyte distribution width ratio 13.6 % 10.0-14.5 Automated blood platelet count (count/volume) 154 10*3/uL 130-400 Automated blood platelet mean volume measurement 9.6 [foz_us] 7.4-10.4 Comprehensive metabolic panel - 12/03/16 07:25 Serum or plasma sodium measurement (moles/volume) 138 mmol/L 135-145 Serum or plasma potassium measurement (moles/volume) 4.0 mmol/L 3.6-5.0 Serum or plasma chloride measurement (moles/volume) 106 mmol/L 98-107 Carbon dioxide 24 mmol/L 21-32 Serum or plasma anion gap determination (moles/volume) 8 mmol/L 5-14 Serum or plasma urea nitrogen measurement (mass/volume) 16 mg/dL 7-18 Serum or plasma creatinine measurement (mass/volume) 1.01 mg/dL 0.60-1.30 Serum or plasma urea nitrogen/creatinine mass ratio 16 NRG Serum or plasma creatinine measurement with calculation of estimated glomerular filtration rate > NRG Serum or plasma glucose measurement (mass/volume) 154 mg/dL 70-105 Serum or plasma calcium measurement (mass/volume) 9.6 mg/dL 8.5-10.1 Serum or plasma total bilirubin measurement (mass/volume) 1.0 mg/dL 0.1-1.0 Serum or plasma alkaline phosphatase measurement (enzymatic activity/volume) 90 U/L 40-136 Serum or plasma aspartate aminotransferase measurement (enzymatic activity/ volume) 33 U/L 5-34 Serum or plasma alanine aminotransferase measurement (enzymatic activity/volume ) 30 U/L 0-55 Serum or plasma protein measurement (mass/volume) 8.1 g/dL 6.4-8.2 Serum or plasma albumin measurement (mass/volume) 3.8 g/dL 3.2-4.5 Lipid 1996 panel - 12/03/16 07:25 Serum or plasma triglyceride measurement (mass/volume) 98 mg/dL <150 Serum or plasma cholesterol measurement (mass/volume) 162 mg/dL < 200 Serum or plasma cholesterol in HDL measurement (mass/volume) 42 mg/ dL 40-60 Cholesterol in LDL [mass/volume] in serum or plasma by direct assay 112 mg/dL 1-129 Serum or plasma cholesterol in VLDL measurement (mass/volume) 20 mg/ dL 5-40 PT panel in platelet poor plasma by coagulation assay - 12/03/16 07:25 Prothrombin time (PT) in platelet poor plasma by coagulation assay 13.9 s 12.2-14.7 INR in platelet poor plasma or blood by coagulation assay 1.1 0.8-1.4 Activated partial thromboplastin time (aPTT) in platelet poor plasma bycoagulation assay - 12/03/16 07:25 Activated partial thromboplastin time (aPTT) in platelet poor plasma bycoagulation assay 35 s 24-35 Methicillin resistant Staphylococcus aureus (MRSA) screening culture - 07:25 Methicillin resistant Staphylococcus aureus (MRSA) screening culture NEG NRG Complete blood count (CBC) with automated white blood cell (WBC) differential - 04/25/17 16:29 Blood leukocytes automated count (number/volume) 4.6 10*3/uL 4.3-11.0 Blood erythrocytes automated count (number/volume) 2.76 10*6/uL 4.35-5.85 Venous blood hemoglobin measurement (mass/volume) 8.6 g/dL 13.3-17.7 Blood hematocrit (volume fraction) 26 % 40-54 Automated erythrocyte mean corpuscular volume 95 [foz_us] 80-99 Automated erythrocyte mean corpuscular hemoglobin (mass per erythrocyte) 31 pg 25-34 Automated erythrocyte mean corpuscular hemoglobin concentration measurement ( mass/volume) 33 g/dL 32-36 Automated erythrocyte distribution width ratio 13.4 % 10.0-14.5 Automated blood platelet count (count/volume) 122 10*3/uL 130-400 Automated blood platelet mean volume measurement 9.1 [foz_us] 7.4-10.4 Automated blood neutrophils/100 leukocytes 85 % 42-75 Automated blood lymphocytes/100 leukocytes 10 % 12-44 Blood monocytes/100 leukocytes 5 % 0-12 Automated blood eosinophils/100 leukocytes 0 % 0-10 Automated blood basophils/100 leukocytes 0 % 0-10 Blood neutrophils automated count (number/volume) 3.9 10*3 1.8-7.8 Blood lymphocytes automated count (number/volume) 0.4 10*3 1.0-4.0 Blood monocytes automated count (number/volume) 0.2 10*3 0.0-1.0 Automated eosinophil count 0.0 10*3/uL 0.0-0.3 Automated blood basophil count (count/volume) 0.0 10*3/uL 0.0-0.1 PT panel in platelet poor plasma by coagulation assay - 04/25/17 16:29 Prothrombin time (PT) in platelet poor plasma by coagulation assay 15.9 s 12.2-14.7 INR in platelet poor plasma or blood by coagulation assay 1.3 0.8-1.4 Activated partial thromboplastin time (aPTT) in platelet poor plasma bycoagulation assay - 04/25/17 16:29 Activated partial thromboplastin time (aPTT) in platelet poor plasma bycoagulation assay 32 s 24-35 Blood lactic acid measurement (moles/volume) - 04/25/17 16:29 Blood lactic acid measurement (moles/volume) 1.61 mmol/L 0.50-2.00 Comprehensive metabolic panel - 04/25/17 16:29 Serum or plasma sodium measurement (moles/volume) 139 mmol/L 135-145 Serum or plasma potassium measurement (moles/volume) 6.0 mmol/L 3.6-5.0 Serum or plasma chloride measurement (moles/volume) 115 mmol/L 98-107 Carbon dioxide 14 mmol/L 21-32 Serum or plasma anion gap determination (moles/volume) 10 mmol/L 5-14 Serum or plasma urea nitrogen measurement (mass/volume) 55 mg/dL 7-18 Serum or plasma creatinine measurement (mass/volume) 2.72 mg/dL 0.60-1.30 Serum or plasma urea nitrogen/creatinine mass ratio 20 NRG Serum or plasma creatinine measurement with calculation of estimated glomerular filtration rate 24 NRG Serum or plasma glucose measurement (mass/volume) 112 mg/dL 70-105 Serum or plasma calcium measurement (mass/volume) 9.4 mg/dL 8.5-10.1 Serum or plasma total bilirubin measurement (mass/volume) 0.5 mg/dL 0.1-1.0 Serum or plasma alkaline phosphatase measurement (enzymatic activity/volume) 135 U/L 40-136 Serum or plasma aspartate aminotransferase measurement (enzymatic activity/ volume) 26 U/L 5-34 Serum or plasma alanine aminotransferase measurement (enzymatic activity/volume ) 25 U/L 0-55 Serum or plasma protein measurement (mass/volume) 8.6 g/dL 6.4-8.2 Serum or plasma albumin measurement (mass/volume) 3.2 g/dL 3.2-4.5 Comprehensive metabolic panel - 04/25/17 19:15 Serum or plasma sodium measurement (moles/volume) 140 mmol/L 135-145 Serum or plasma potassium measurement (moles/volume) 6.2 mmol/L 3.6-5.0 Serum or plasma chloride measurement (moles/volume) 118 mmol/L 98-107 Carbon dioxide 13 mmol/L 21-32 Serum or plasma anion gap determination (moles/volume) 9 mmol/L 5-14 Serum or plasma urea nitrogen measurement (mass/volume) 55 mg/dL 7-18 Serum or plasma creatinine measurement (mass/volume) 2.63 mg/dL 0.60-1.30 Serum or plasma urea nitrogen/creatinine mass ratio 21 NRG Serum or plasma creatinine measurement with calculation of estimated glomerular filtration rate 25 NRG Serum or plasma glucose measurement (mass/volume) 96 mg/dL 70-105 Serum or plasma calcium measurement (mass/volume) 9.0 mg/dL 8.5-10.1 Serum or plasma total bilirubin measurement (mass/volume) 0.4 mg/dL 0.1-1.0 Serum or plasma alkaline phosphatase measurement (enzymatic activity/volume) 120 U/L 40-136 Serum or plasma aspartate aminotransferase measurement (enzymatic activity/ volume) 24 U/L 5-34 Serum or plasma alanine aminotransferase measurement (enzymatic activity/volume ) 23 U/L 0-55 Serum or plasma protein measurement (mass/volume) 7.7 g/dL 6.4-8.2 Serum or plasma albumin measurement (mass/volume) 2.9 g/dL 3.2-4.5 Encounters ACCT No. Visit Date/Time Discharge Status Pt. Type Provider Facility Loc./Unit Complaint [id number] 02/27/2017 10:26:00 02/27/2017 23:59:59 CLS Outpatient RIC CEVALLOS MD [facility] ONC [id number] 02/16/2017 08:42:00 02/16/2017 23:59:59 CLS Outpatient PUMA EDGAR BEAN PICKER [facility] RAD C22.0 [id number] 12/16/2016 15:38:00 12/16/2016 23:59:59 CLS Preadmit ROYAL KAYE MD [facility] WOUNDCARE [id number] 12/09/2016 09:51:00 12/13/2016 00:01:00 DIS Outpatient THOMAS CROSS [facility] ONC [id number] 12/08/2016 13:25:00 12/08/2016 23:59:59 CLS Outpatient MICHELE KATHLEEN MD [facility] WOUNDCARE [id number] 12/03/2016 06:45:00 12/03/2016 13:25:00 DIS Outpatient CHERRIE CROOKS MD [facility] CATH PAD,CAD,DM,HTN [id number] 11/28/2016 10:11:00 11/28/2016 23:59:59 CLS Outpatient PUMA EDGAR BEAN PICKER [facility] RAD C22.0 [id number] 11/27/2016 09:22:00 11/27/2016 23:59:59 CLS Outpatient ROYAL KAYE MD [facility] WOUNDCARE [id number] 11/20/2016 12:51:00 11/20/2016 23:59:59 CLS Outpatient PUMA EDGAR BEAN PICKER [facility] RAD C22.0 [id number] 11/20/2016 12:48:00 11/20/2016 23:59:59 CLS Outpatient ROYAL KAYE MD [facility] RAD I73.9 [id number] 11/20/2016 09:10:00 11/20/2016 23:59:59 CLS Outpatient ROYAL KAYE MD [facility] WOUNDCARE [id number] 11/13/2016 09:14:00 11/13/2016 23:59:59 CLS Outpatient ROYAL KAYE MD [facility] WOUNDCARE [id number] 11/06/2016 10:50:00 11/11/2016 00:01:00 DIS Outpatient THOMAS CROSS [facility] ONC [id number] 11/06/2016 10:53:00 11/06/2016 23:59:59 CLS Outpatient ROYAL KAYE MD [facility] LAB [id number] 11/06/2016 09:01:00 11/06/2016 23:59:59 CLS Outpatient ROYAL KAYE MD [facility] WOUNDCARE [id number] 10/13/2016 12:12:00 10/13/2016 23:59:59 CLS Outpatient VICKI RODRIGUEZ [employer] [facility] LAB [id number] 08/07/2016 14:12:00 09/03/2016 16:00:00 DIS Outpatient RILEY YIP [employer]CH[employer]IC [facility] WOUNDCARE [id number] 07/30/2016 06:28:00 07/30/2016 14:35:00 DIS Outpatient THOMAS CROSS [facility] RAD R93.5 ABNORMAL ABD MRI [id number] 07/22/2016 09:23:00 07/22/2016 23:59:59 CLS Outpatient PUMA EDGAR BEAN PICKER [facility] RAD LIVER NODULE K76.89 [id number] 07/02/2016 10:52:00 07/02/2016 23:59:59 CLS Outpatient THOMAS CROSS [facility] ONC [id number] 06/03/2016 12:56:00 06/19/2016 16:00:00 DIS Outpatient RILEY YIP [employer]IC [facility] WOUNDCARE [id number] 06/11/2016 09:33:00 06/11/2016 23:59:59 CLS Outpatient ARTEMIO MOTA MD [facility] RAD MASS IN THE R LOBE OF LIVER [id number] 06/02/2016 10:29:00 06/02/2016 14:15:00 DIS Outpatient ARTEMIO MOTA MD [facility] ENDO ANEMIA [id number] 05/29/2016 05:52:00 05/29/2016 23:59:59 CLS Outpatient ARTEMIO MOTA MD [facility] PREOP ANEMIA [id number] 05/13/2016 07:22:00 05/13/2016 23:59:59 CLS Outpatient ARTEMIO MOTA MD [facility] ENDO IRON DEF. ANEMIA [id number] 05/08/2016 09:59:00 05/08/2016 23:59:59 CLS Outpatient ARTEMIO MOTA MD [facility] PREOP IRON DEF. ANEMIA [id number] 05/01/2016 22:12:00 05/02/2016 11:51:00 DIS Inpatient THOMAS CROSS [facility] 4TH PACYTOPENIA,SPLENOMEGALY WITH LUQ PAIN,MELENA [id number] 04/23/2015 10:17:00 04/23/2015 23:59:59 CLS Outpatient VALERIY ROSENTHAL, CHERRIE Johnson [facility] CARD SYNCOPE,HTN [id number] 04/25/2017 16:44:00 Document Registration
--- NOTE | 2017-04-26 11:44 | History & Physicial ([facility]) ---
HPI History of Present Illness: provides most history, patient is deaf- 62 yo male presented to ER with pain in back and legs with weeping wounds on his legs, left greater than right. He has end stage liver disease and liver cancer. He was seeing wound care for his legs in the past, but it didn't seem to be improving much and was causing him a lot of pain- dressings would peel off his skin, so he didn't want to go to wound care anymore. He has had nausea and vomiting for about 5 days and has had blood in stools since February and has also had a small amount of blood in his vomit just prior to his arriving at the hospital which was observed apparently by EMS or ER, not by . Source: family Exam Limitations: clinical condition (deaf) Date seen by provider: Apr 26, 2017 Time Seen by Provider: 14:20 Attending Physician Addy Castro MD PCP Lindsey Pereira APRN Consult Date of Admission Apr 25, 2017 at 18:15 Home Medications Home Medications Reviewed patient Home Medication Reconciliation Form Allergies Coded Allergies: No Known Drug Allergies (Unverified , 05/01/16) [id number] Hx Patient Social History Alcohol Use: Denies Use Recreational Drug Use: No Smoking Status: Never a Smoker 2nd Hand Smoke Exposure: No Recent Foreign Travel: No Contact w/other who traveled: No Recent Hopitalizations: Yes ([facility]) Recent Infectious Disease Expo: No Physical Abuse Screen: No Sexual Abuse: No Immunizations Up To Date Tetanus Booster (TDap): Unknown Date of Pneumonia Vaccine: Feb 14, 2016 Date of Influenza Vaccine: Jan 15, 2017 Past Medical History PMHx: Cirrhosis Hepatocellular carcinoma DMII Hypothyroidism Recurrent nephrolithiasis Chronic pain SurgHx: Cholecystectomy EGD/Colonoscopy 04/2016 Capsule endoscopy 05/2016 EGD 05/2016 Liver biopsy 07/2016 CT guided microwave ablation and chemoembolization of hepatic tumor with LC beads coated with doxorubicin 10/2016 Family Medical History Significant Family History: Cancer (mother- pancreatic) Review of Systems ([facility]) Constitutional: malaise, weakness Respiratory: No cough, No short of breath Cardiovascular: chest pain (sharp, starting this morning, not before arrival) Gastrointestinal: loss of appetite, nausea, vomiting Reviewed Test Results Reviewed Test Results Lab Laboratory Tests Test 04/25/17 16:29 04/25/17 19:15 04/26/17 05:35 Range/Units White Blood Count 4.6 3.3 L 4.3-11.0 10^3/uL Red Blood Count 2.76 L 2.39 L 4.35-5.85 10^6/uL Hemoglobin 8.6 L 7.4 L 13.3-17.7 G/DL Hematocrit 26 L 22 L 40-54 % Mean Corpuscular Volume 95 94 80-99 FL Mean Corpuscular Hemoglobin 31 31 25-34 PG Mean Corpuscular Hemoglobin Concent 33 33 32-36 G/DL Red Cell Distribution Width 13.4 12.9 10.0-14.5 % Platelet Count 122 L 94 L 130-400 10^3/uL Mean Platelet Volume 9.1 9.2 7.4-10.4 FL Neutrophils (%) (Auto) 85 H 79 H 42-75 % Lymphocytes (%) (Auto) 10 L 12 12-44 % Monocytes (%) (Auto) 5 7 0-12 % Eosinophils (%) (Auto) 0 1 0-10 % Basophils (%) (Auto) 0 0 0-10 % Neutrophils # (Auto) 3.9 2.6 1.8-7.8 X 10^3 Lymphocytes # (Auto) 0.4 L 0.4 L 1.0-4.0 X 10^3 Monocytes # (Auto) 0.2 0.2 0.0-1.0 X 10^3 Eosinophils # (Auto) 0.0 0.0 0.0-0.3 10^3/uL Basophils # (Auto) 0.0 0.0 0.0-0.1 10^3/uL Prothrombin Time 15.9 H 12.2-14.7 SEC INR Comment 1.3 0.8-1.4 Activated Partial Thromboplast Time 32 24-35 SEC Sodium Level 139 140 135-145 MMOL/L Potassium Level 6.0 H 6.2 H 3.6-5.0 MMOL/L Chloride Level 115 H 118 H 98-107 MMOL/L Carbon Dioxide Level 14 L 13 L 21-32 MMOL/L Anion Gap 10 9 5-14 MMOL/L Blood Urea Nitrogen 55 H 55 H 7-18 MG/DL Creatinine 2.72 H 2.63 H 0.60-1.30 MG/DL Estimat Glomerular Filtration Rate 24 25 BUN/Creatinine Ratio 20 21 Glucose Level 112 H 96 70-105 MG/DL Lactic Acid Level 1.61 0.50-2.00 MMOL/L Calcium Level 9.4 9.0 8.5-10.1 MG/DL Total Bilirubin 0.5 0.4 0.1-1.0 MG/DL Aspartate Amino Transf (AST/SGOT) 26 24 5-34 U/L Alanine Aminotransferase (ALT/SGPT) 25 23 0-55 U/L Alkaline Phosphatase 135 120 40-136 U/L Total Protein 8.6 H 7.7 6.4-8.2 GM/DL Albumin 3.2 2.9 L 3.2-4.5 GM/DL Radiology CT abdomen/pelvis 04/25/17: IMPRESSION: There is splenomegaly. There are bilateral nonobstructing renal stones present. No acute abnormality is seen with no change from 11/20/2016. CXR 04/25/17: no acute disease Physical Exam-([facility]) Physical Exam Vital Signs VS - Last 72 Hours, by Label 04/25/17 04/25/17 04/25/17 04/25/17 16:02 18:40 19:00 20:16 Temp 97.2 99.4 Pulse 104 99 103 99 Resp 20 18 20 B/P (MAP) 136/61 (86) 137/76 (96) Pulse Ox 100 98 98 98 O2 Delivery Room Air Room Air Room Air FiO2 21 04/25/17 04/26/17 04/26/17 04/26/17 22:54 00:00 04:00 07:26 Temp 97.8 97.8 Pulse 98 96 Resp 18 B/P (MAP) 130/60 (83) 140/63 (88) Pulse Ox 98 96 96 95 O2 Delivery Room Air Room Air Room Air Room Air 04/26/17 04/26/17 04/26/17 04/26/17 07:44 08:10 12:45 16:00 Temp 98.2 97.9 97.4 Pulse 95 99 94 Resp 16 20 20 B/P (MAP) 147/58 (87) 144/61 (88) 133/68 (89) Pulse Ox 97 98 97 O2 Delivery Room Air Room Air Room Air Room Air Capillary Refill : Less Than 3 Seconds General Appearance: no apparent distress, obese Respiratory: lungs clear, normal breath sounds Cardiovascular: regular rate, rhythm, no murmur Gastrointestinal: normal bowel sounds Extremities: pedal edema Neurologic/Psychiatric: alert, normal mood/affect Skin: other (bilateral marked erythema and peeling of skin of both lower legs with active serous drainage) Clinical Quality Measures DVT/VTE Risk/Contraindication: Risk Factor Score Per Nursin RFS Level Per Nursing on Admit: 4+=Very High Assessment/Plan Assessment/Plan (1) Nausea and vomiting Status: Acute Assessment & Plan: Suspect due to underlying liver disease, but possible gastritis. Anti-emetics, IV fluid. Qualifiers: Qualified Codes: R11.2 - Nausea with vomiting, unspecified (2) Cellulitis of lower extremity Status: Acute Assessment & Plan: Unclear if superimposed infection versus chronic worsening- with marked edema and weeping and chronic nature, ceftriaxone started in ER will continue. Wound care consulted. Qualifiers: Qualified Codes: L03.119 - Cellulitis of unspecified part of limb (3) Acute renal failure Status: Acute Assessment & Plan: Possibly due to intravascular volume depletion with recent poor intake and vomiting, consider hepatorenal syndrome or infection related. UA pending to eval for ATN. He does not desire aggressive care, but does want to continue to monitor function for now. Continue IVF at 100 ml/hr- creatinine with slight improvement since admission but worsening hyperkalemia. One dose of furosemide given today due to severe edema in legs with pain and weeping as well as his hyperkalemia. Qualifiers: Qualified Codes: N17.9 - Acute kidney failure, unspecified (4) Hyperkalemia Status: Acute Assessment & Plan: Worsening in spite of slightly decreased creatinine today. One dose of furosemide given today. Consider kayexalate given family and patient concern for underlying constipation anyway. (5) Pancytopenia Status: Chronic Permanent Comment: Bone marrow biopsy 04/2016 with essentially absent iron stores but otherwise unremarkable. EGD/colonoscopy 04/2016 unrevealing, capsule endoscopy 05/2016 unrevealing, EGD 05/2016 with gastric erosions and petechiae. Last Edited By: Addy Castro on Apr 26, 2017 8:22 pm Assessment & Plan: Per review of Hematology notes, thought to be secondary to splenomegaly. Also with cryptogenic cirrhosis. Stable currently near his baseline. Has required multiple transfusions and iron infusions in the last year. (6) Diabetes mellitus type 2 with complications Status: Chronic Assessment & Plan: Holding home glimeperide with illness, not checking routine blood sugars due to poor intake and non-aggressive goals of care currently. Fasting glucose this am normal. Qualifiers: Qualified Codes: E11.8 - Type 2 diabetes mellitus with unspecified complications (7) Hypothyroidism Status: Chronic Assessment & Plan: Resume home levothyroxine. (8) Hepatocellular carcinoma Status: Chronic Permanent Comment: s/p CT guided microwave ablation and chemoembolization with LC beads coated with doxorubicin 10/17/2016 at [facility]. Last Edited By: Addy Castro on Apr 26, 2017 8:12 pm Assessment & Plan: CT on admission with no change in the hepatic lesion and no new lesions noted on CT abdomen/pelvis. Will consult Dr. Gabriel in the morning. (9) Cryptogenic cirrhosis Status: Chronic Assessment & Plan: Cirrhosis noted while working up his pancytopenia in the last year, unclear underlying etiology. Hepatitis negative. Heme/Onc recommended Hepatology eval, he was planning to do so early this year. Will add benadryl prn itching as he reports significant itching bothersome to him. (10) Chronic pain Status: Chronic Assessment & Plan: On oxycodone up to 10 mg four times per day at home per , will try changing to fentanyl tire vulcanizer for uncontrolled pain. Has chronic back pain , but now also abdominal pain. (11) Splenomegaly Status: Chronic Assessment & Plan: Unclear etiology but is suspected cause of his pancytopenia. Stable on CT abdomen this admission. (12) DVT prophylaxis Status: Acute Assessment & Plan: No SCDs due to wounds on legs, no enoxaparin due to pancytopenia and history of GI bleeding with current goal of going home with palliative care. (13) Advance care planning Status: Acute Assessment & Plan: Patient reports he is not interested in aggressive care at this time, he has a lot of pain and recognizes that due to his cirrhosis and hepatocellular carcinoma for which he is not a surgical candidate, his underlying disease is unlikely to improve, so aggressive care such as dialysis if his renal function worsens or hyperkalemia worsens would be unlikely to return him ultimately to his desired functional status. He does not want aggressive wound care for his legs because it causes him too much pain. He is aware that without aggressive care he may be very near the end of his life, particularly with his hyperkalemia and he wants to try to go home and be comfortable. Currently, he does desire DNR/DNI status, but will continue with antibiotics and lab follow-up and would like to discuss further with Dr. Gabriel tomorrow as well as Palliative care. ADDY CASTRO MD Apr 26, 2017 11:44 am
[2017-04-26] MEDS ORDERED: FUROSEMIDE 40 MG/4 ML INJ (LASIX) IVP NR (12:00)
[2017-04-26 12:45] VITALS: BP 144/61
[2017-04-26] MEDS ORDERED: NS IV 1000 ML 1,000 ML IV SCH (14:46)
[2017-04-26] MEDS ORDERED: NALOXONE 0.4 MG/ML 1 ML (NARCAN) VIAL IV PRN (15:00)
[2017-04-26] MEDS ORDERED: fentaNYL INJECTION 1,000 MCG in NS (IVPB) 80 ML IV SCH (15:00)
[2017-04-26] MEDS ORDERED: diphenhydrAMINE 50 MG/ML INJ (BENADRYL) IV PRN (15:00)
[2017-04-26] MEDS ORDERED: METOCLOPRAMIDE INJ 10 MG/2 ML (REGLAN) IV PRN (15:00)
[2017-04-26 16:00] VITALS: BP 133/68
[2017-04-26] MEDS ORDERED: LEVO88TA54 PO (17:47)
[2017-04-26] MEDS ORDERED: METF500T8 PO (17:47)
[2017-04-26] MEDS ORDERED: FERR325T18 PO (17:47)
[2017-04-26] MEDS ORDERED: PREG150C PO (17:47)
[2017-04-26] MEDS: cefTRIAXone 1,000 MG/NS 50 ML IVPB IV SCH ×2 (18:24)
[2017-04-26 19:30] VITALS: BP 134/64
[2017-04-26] MEDS: FERROUS SULF 325 MG (IRON) TAB PO SCH (22:21)
[2017-04-26 22:41] LABS: BILIRUBIN,URINE NEGATIVE (NEGATIVE); COLOR,URINE YELLOW; GLUCOSE, URINE (UA) NEGATIVE (NEGATIVE); KETONES,URINE NEGATIVE (NEGATIVE); LEUKOCYTE ESTERASE ,URINE NEGATIVE (NEGATIVE); NITRITE,URINE NEGATIVE (NEGATIVE); PH,URINE 5 (5-9); PROTEIN,URINE NEGATIVE (NEGATIVE); UROBILINOGEN,URINE NORMAL (NORMAL)
[2017-04-26 23:15] LABS: CLARITY,URINE CLEAR
[2017-04-26 23:16] LABS: BACTERIA,URINE FEW /HPF; WBC,URINE RARE /HPF
[2017-04-27] VITALS (8 sets, daily range): BP systolic 127–160; BP diastolic 60–75
[2017-04-27 06:39] LABS: MEAN PLATELET VOLUME 9.8 FL (7.4-10.4); RED BLOOD COUNT 2.28 10^6/uL (4.35-5.85); RED CELL DISTRIBUTION WIDTH 12.9 % (10.0-14.5); WHITE BLOOD COUNT 2.7 10^3/uL (4.3-11.0)
[2017-04-27 06:53] LABS: ALBUMIN 2.6 GM/DL (3.2-4.5); BILIRUBIN,TOTAL 0.4 MG/DL (0.1-1.0); CALCIUM 8.4 MG/DL (8.5-10.1); CREATININE SERUM 2.5 MG/DL (0.60-1.30); MAGNESIUM 1.4 MG/DL (1.8-2.4); POTASSIUM 4.8 MMOL/L (3.6-5.0); TOTAL PROTEIN 6.7 GM/DL (6.4-8.2)
[2017-04-27] MEDS: NS IV 1000 ML 1,000 ML IV SCH ×4 (07:55→21:30)
[2017-04-27] MEDS: SENNA W/DOCUSATE (SENOKOT S) TABLET PO SCH (09:13)
[2017-04-27] MEDS: LEVOTHYROXINE 88 MCG (LEVOTHORID) TAB PO SCH (09:13)
[2017-04-27] MEDS: FERROUS SULF 325 MG (IRON) TAB PO SCH ×2 (09:14→20:17)
[2017-04-27] MEDS: METOCLOPRAMIDE INJ 10 MG/2 ML (REGLAN) IV PRN (09:20)
[2017-04-27] MEDS: ONDANSETRON 4 MG/2 ML (SDV) Z0FRAN IV PRN (10:23)
[2017-04-27] MEDS ORDERED: fentaNYL PATCH 25 MCG (DURAGESIC) TD SCH (14:15)
--- NOTE | 2017-04-27 15:01 | Occupational Therapy Eval ---
OT Evaluation-General/PLF Medical Diagnosis Admission Date Apr 25, 2017 at 18:15 Medical Diagnosis: acute renal failure, cellulitis LEs, liver disease, liver CA Onset Date: Apr 25, 2017 Therapy Diagnosis Therapy Diagnosis: decr self care, decr funct mob, decr act tolerance Height/Weight Height (Feet): 5 Height (Inches): 5.00 Weight (Pounds): 200 Weight (Ounces): 0.0 Precautions Precautions/Isolations: Fall Prevention, Standard Precautions, Pressure Ulcer Safety Interventions: Bed Exit Alarm Referral Physician: Matthew Referral Reason: Evaluation/Treatment Referral Comments Pt might benefit from skilled physical therapy Medical History Pertinent Medical History: DM, GERD, HTN, Hypothroidism Additional Medical History End stage liver disease/cirrhosis, liver cancer. Kidney stones. Abdominal hernia. Chronic constipation. Chronic back pain. Anemia Current History Pt admitted with vomiting, blood in vomit. Multiple wounds and weeping LEs. Pt is deaf. Reviewed History: Yes Social History Current Living Status: Spouse ADL-Prior Level of Function ADL PLOF Comments Pt and reported that he was able to get around in his home without AD until just recently when he started to use a walker. He has been able to get to the bathroom but his helped him with clothing and hygiene. He did sponge baths and needed help washing and dressing his lower body. He was able to feed himself and do grooming tasks. He does not work at this time. OT Current Status Subjective Pt seen in room, up in bed, agreeable to OT. Pain said that his legs were painful but not rated. Appearance Alert, cooperative Mental Status/Objective Attachments: IV Current Hand Dominance: Left Upper Extremity ROM Grossly WFL bilat Upper Extremity Strength grossly 4/5 bilat LEs are edematous and skin is dry. ADL-Treatment ADL-Current Pt hasn't been eating due to vomiting. He said that he hasn't been up out of bed yet. Functional [place] Measure 0=Not Assessed/NA 4=Minimal Assistance 1=Total Assistance 5=Supervision or Setup 2=Maximal Assistance 6=Modified [place] 3=Moderate Assistance 7=Complete IndependenceIRFPAI Quality Coding Scale 6 Independent with activity with or without an assistive device 5 Patient requires set up or clean up by helper. Patient completes activity by themselves 4 Supervision or touching assist (CGA). [place] provide cues , steadying assist 3 The helper provides less than half the effort to complete the activity 2 The helper provides more than half the effort to complete the activity 1 Dependent. The helper does all the effort to complete an activity 7 Patient refused to complete or attempt activity 9 The patient did not perform the activity before the current illness or injury 88 Not attempted due to Medical conditions or safety concerns Education OT Patient Education: Purpose of tx/functional activities, Rehab process Teaching Recipient: Patient, Family Teaching Methods: Discussion Response to Teaching: Verbalize Understanding OT Correction Goals Correction Goals Time Frame: May 11, 2017 Eating (FIM): 6 Grooming(FIM): 5 Bathing(FIM): 4 Upper Body Dressing(FIM): 5 Lower Body Dressing(FIM): 3 Toileting(FIM): 3 Toilet/Commode Transfer(FIM): 3 Additional Goals: 2-Verbalize Understanding, 3-ImproveStrength/[place] 1=Demonstrate adherence to instructed precautions during ADL tasks. 2=Patient will verbalize/demonstrate understanding of assistive devices/ modifications for ADL. 3=Patient will improve strength/tolerance for activity to enable patient to perform ADL's. OT Education/Plan Problem List/Assessment Assessment: Decreased Activ Tolerance, Decreased UE Strength, Dependent Transfers, Edema, Impaired Self-Care Skills Pt would benefit from skilled OT to increase his independence in basic self care and to decrease caregiver burden. Discharge Recommendations Plan/Recommendations: Continue POC Target Placement home Treatment Plan/Plan of Care Treatment,Training & Education: Yes Patient would benefit from OT for education, treatment and training to promote independence in ADL's, mobility, safety and/or upper extremity function for ADL' s. Plan of Care: ADL Retraining, Functional Mobility, UE Funct Exercise/Act Treatment Duration: May 11, 2017 Frequency: 5 times per week Estimated Hrs Per Day: .5 hour per day Agreement: Yes Rehab Potential: Fair Time/GCodes Start Time: 13:49 Stop Time: 14:00 Total Time Billed (hr/min): 11 Billed Treatment Time visit, 11 minutes evaluation moderate intensity CHANDNI LUGO OT Apr 27, 2017 15:01
--- NOTE | 2017-04-27 15:36 | Progress Note (SOAP) ---
Subjective Subjective/Events-last exam Patient states pain is still 8/10. Has not had BM since admission. Tolerating PO diet. Review of Systems Date Seen by Provider: Apr 27, 2017 Time Seen by Provider: 10:15 Pulmonary: No Dyspnea, No Cough Cardiovascular: No: Chest Pain, Palpitations Genitourinary: No Dysuria Musculoskeletal: leg pain, foot pain Objective Exam Last Set of Vital Signs Vital Signs Date Time Temp Pulse Resp B/P (MAP) Pulse Ox O2 Delivery O2 Flow Rate FiO2 04/27/17 14:17 96 Room Air 04/27/17 12:00 99.9 87 18 127/65 (85) 04/25/17 20:16 21 Capillary Refill : Less Than 3 Seconds I&O Intake and Output 04/27/17 00:00 Intake Total 1710 ml Output Total 2420 ml Balance -710 ml Intake Oral 1160 ml IV Total 550 ml Output Urine Total 2420 ml General: Alert, Oriented X3, Cooperative, No Acute Distress HEENT: Mucous Memb Moist/[place] Lungs: Clear to Auscultation, Normal Air Movement Heart: Regular Rate, No Murmurs Abdomen: Normal Bowel Sounds, Soft, No Tenderness, No Hepatosplenomegaly, No Masses Extremities: Other (2+ pitting edema with cracked skin and erythema, no drainage today) Neuro: Normal Speech, Strength at 5/5 X4 Ext, Cranial Nerves 3-12 NL Psych/Mental Status: Mental Status NL, Mood NL Results/Procedures Lab Laboratory Tests 04/26/17 22:30: Urine Color YELLOW, Urine Clarity CLEAR, Urine pH 5, Urine Specific [place] 1.015L, Urine Protein NEGATIVE, Urine Glucose (UA) NEGATIVE, Urine Ketones NEGATIVE, Urine Nitrite NEGATIVE, Urine Bilirubin NEGATIVE, Urine Urobilinogen NORMAL, Urine Leukocyte Esterase NEGATIVE, Urine RBC (Auto) 5+H, Urine RBC 10- 25H, Urine WBC RARE, Urine Crystals NONE, Urine Bacteria FEWH, Urine Casts NONE , Urine Mucus NEGATIVE, Urine Culture Indicated NO 04/27/17 05:16: White Blood Count 2.7L, Red Blood Count 2.28L, Hemoglobin 7.0L, Hematocrit 21L, Mean Corpuscular Volume 93, Mean Corpuscular Hemoglobin 31, Mean Corpuscular Hemoglobin Concent 33, Red Cell Distribution Width 12.9, Platelet Count 83L, Mean Platelet Volume 9.8, Sodium Level 138, Potassium Level 4.8, Chloride Level 116H, Carbon Dioxide Level 15L, Anion Gap 7, Blood Urea Nitrogen 44H, Creatinine 2.50H, Estimat Glomerular Filtration Rate 26, BUN/Creatinine Ratio 18 , Glucose Level 122H, Calcium Level 8.4L, Magnesium Level 1.4L, Total Bilirubin 0.4, Aspartate Amino Transf (AST/SGOT) 34, Alanine Aminotransferase (ALT/SGPT) 24, Alkaline Phosphatase 109, Total Protein 6.7, Albumin 2.6L Microbiology 04/25/17 Blood Culture - Preliminary, Resulted No growth Radiology CT abdomen/pelvis 04/25/17: IMPRESSION: There is splenomegaly. There are bilateral nonobstructing renal stones present. No acute abnormality is seen with no change from 11/20/2016. CXR 04/25/17: no acute disease Assessment/Plan Assessment/Plan (1) Nausea and vomiting Status: Resolved Qualifiers: Qualified Codes: R11.2 - Nausea with vomiting, unspecified (2) Cellulitis of lower extremity Status: Acute Qualifiers: Qualified Codes: L03.119 - Cellulitis of unspecified part of limb (3) Acute renal failure Status: Acute Assessment & Plan: Mild improvement in Cr, continues to have good UOP Qualifiers: Qualified Codes: N17.9 - Acute kidney failure, unspecified (4) Hyperkalemia Status: Resolved (5) Pancytopenia Status: Chronic Permanent Comment: Bone marrow biopsy 04/2016 with essentially absent iron stores but otherwise unremarkable. EGD/colonoscopy 04/2016 unrevealing, capsule endoscopy 05/2016 unrevealing, EGD 05/2016 with gastric erosions and petechiae. Last Edited By: Jes Castro on Apr 26, 2017 20:22 (6) Diabetes mellitus type 2 with complications Status: Chronic Qualifiers: Qualified Codes: E11.8 - Type 2 diabetes mellitus with unspecified complications (7) Hypothyroidism Status: Chronic (8) Hepatocellular carcinoma Status: Chronic Permanent Comment: s/p CT guided microwave ablation and chemoembolization with LC beads coated with doxorubicin 10/17/2016 at [facility]. Last Edited By: Jes Castro on Apr 26, 2017 20:12 (9) Cryptogenic cirrhosis Status: Chronic (10) Chronic pain Status: Chronic Assessment & Plan: - Start Fentanyl patch today (11) Splenomegaly Status: Chronic (12) DVT prophylaxis Status: Acute (13) Advance care planning Status: Acute Assessment & Plan: Patient and family has decided to start Hospice - DNR in hospital has been signed - Hospice referral placed Clinical Quality Measures DVT/VTE Risk/Contraindication: Risk Factor Score Per Nursin RFS Level Per Nursing on Admit: 4+=Very High MIRANDA SALAS MD Apr 27, 2017 15:36
[2017-04-27] MEDS ORDERED: FENTANYL IV PRN (16:45)
[2017-04-27] MEDS ORDERED: D5W IV PRN (16:45)
[2017-04-27] MEDS: cefTRIAXone 1,000 MG/NS 50 ML IVPB IV SCH ×2 (17:35)
[2017-04-27] MEDS ORDERED: fentaNYL INJECTION 1,000 MCG in NS (IVPB) 80 ML IV PRN (18:00)
--- NOTE | 2017-04-27 22:14 | CONSULTATION REPORT ---
DATE OF SERVICE: 04/27/2017 The patient is admitted to room 404. REFERRING PHYSICIAN: Jes Castro MD IMPRESSION: 1. A 62-year-old male admitted to the hospital with nausea, vomiting and dehydration. 2. Uncontrolled pain in his lower extremities and back because of chronic cellulitis and ulcerations. 3. 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 4. History of gastrointestinal bleeding and iron deficiency anemia requiring parenteral iron therapy. 5. Pancytopenia due to splenomegaly. RECOMMENDATIONS: 1. The patient indicated that he is not planning to take any treatment for the lower extremity cellulitis and ulcerations as the wound therapy did not help much. He wants comfort care at this point and has signed up with hospice. Social service is making arrangements to send him to a half-way as his cannot take care of him at home. 2. Chronic kidney disease that is worsening, probably related to dehydration and hepatic dysfunction. Continue to monitor. 3. He is overall prognosis is poor. BRIEF HISTORY: The patient is a 62-year-old male who was brought to the emergency room because of nausea and vomiting as well as increasing weakness. He was initially seen by me in April 2016 with a significant anemia and pancytopenia. The workup was initiated which showed evidence of iron deficiency anemia and he was treated with parenteral iron therapy. Further workup showed evidence of cirrhosis and splenomegaly accounting for thrombocytopenia and leukopenia. He had evidence of cirrhosis which was worked up and turned out to be cryptogenic. During followup, he was noted to have a liver lesion, which turned out to be hepatocellular cancer. As it was a solitary small lesion, he was referred to [facility] and underwent liver directed therapy and was on surveillance. 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 Past several months, he has had left lower extremity ulcerations and chronic cellulitis, which was being treated on an outpatient basis. The wound therapy did not help the ulcerations and this is becoming more and more painful. Since admission, he has not had any vomiting, but continues to have nausea. The patient mentioned that he is unable to eat any solids, which would cause vomiting. He is able to tolerate liquids and did not want any further workup including EGDs. PAST MEDICAL HISTORY: Significant for diabetes mellitus for the last 20+ years, hypertension diagnosed more than 5 years ago, hypothyroidism diagnosed 2 years ago, history of nephrolithiasis in the past requiring lithotripsy and basket retrieval, history of stomach problems for the last 2 years, history of cryptogenic cirrhosis and hepatocellular cancer, portal hypertension and splenomegaly. PAST SURGERIES: Include cholecystectomy about 20 years ago, bilateral cataract surgeries approximately 10 years ago, nephrolithiasis requiring lithotripsy and basket retrieval in the past, liver directed therapy for hepatocellular cancer within the last year. SOCIAL HISTORY: The patient is and lives on a farm in [place], [place]. He has 3 daughters, 2 of whom live close by and the youngest daughter lives at home. 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 He has been on disability for more than 30 years. FAMILY HISTORY: Significant for his mother who of pancreatic cancer at the age of 69 years. Father had coronary artery disease and hypertension as well as diabetes mellitus. His father was adopted and no history on the paternal side was obtained. No other significant medical problems on the maternal side of family. PHYSICAL EXAMINATION: GENERAL: Today showed elderly male, awake, hard of hearing, but able to read lips, in moderate distress due to the pain. VITAL SIGNS: Temperature was 99.9, pulse rate of 91, respirations 16, blood pressure 142/64 with oxygen saturation of 97% on room air. HEENT: Normocephalic with male pattern baldness, extraocular muscles intact, conjunctivae pale, oral mucosa moist. NECK: Supple, with no JVD. No cervical, supraclavicular or axillary lymphadenopathy palpable. CHEST: Symmetrical. LUNGS: Fairly clear to auscultation without wheezes or rales. CARDIOVASCULAR EXAM: Regular in rate and rhythm, borderline tachycardic, no murmurs or gallops heard. ABDOMEN: Obese, soft with mild discomfort in the epigastric area without guarding or rebound. Spleen was palpable few inches below the left costal margin. EXTREMITIES: Showed 2 to 3+ edema of both extremities with the skin breakdown bilaterally and erythema. NEUROLOGIC: Showed no focal motor deficits. LABORATORY AND RADIOLOGICAL DATA: CBC done today showed white count of 2.7, hemoglobin 7.0 and platelet count 83,000. Chemistry panel showed relatively normal electrolytes except CO2 level of 15, BUN was 44 and creatinine 2.5 with GFR 26 mL per minute. Liver function studies are normal except albumin level of 2.6. Protime was elevated at 15.9. CT scan of the abdomen and pelvis done on 04/25/2017 showed splenomegaly, bilateral nonobstructing renal stones. No acute abnormality seen with no change from 11/20/2016. Thank you for allowing me to participate in this patient's care. Job ID: [id number] DocumentID: [id number] Dictated Date: 04/27/2017 17:17:52 Food General Manager Date: 04/27/2017 22:14:08 Dictated By: THOMAS CROSS MD
[2017-04-28 04:00] VITALS: BP 166/73
[2017-04-28] MEDS: ONDANSETRON 4 MG/2 ML (SDV) Z0FRAN IV PRN ×2 (07:38→20:35)
[2017-04-28] MEDS: NS IV 1000 ML 1,000 ML IV SCH ×2 (07:39→20:35)
[2017-04-28 08:30] VITALS: BP 155/70
[2017-04-28] MEDS: SENNA W/DOCUSATE (SENOKOT S) TABLET PO SCH (09:08)
[2017-04-28] MEDS: FERROUS SULF 325 MG (IRON) TAB PO SCH ×2 (09:09→20:36)
[2017-04-28] MEDS: LEVOTHYROXINE 88 MCG (LEVOTHORID) TAB PO SCH (09:09)
[2017-04-28] MEDS: METOCLOPRAMIDE INJ 10 MG/2 ML (REGLAN) IV PRN (09:30)
[2017-04-28 10:09] VITALS: BP 155/70
--- NOTE | 2017-04-28 11:08 | Progress Note (SOAP) ---
Subjective Subjective/Events-last exam Still having pain. States that his legs are more painful when he is cold but he cannot tolerate blankets on his feet. Poor appetite but is tolerating diet. No BM Review of Systems Date Seen by Provider: Apr 28, 2017 Time Seen by Provider: 10:45 Pulmonary: No Dyspnea Cardiovascular: No: Chest Pain, Palpitations Gastrointestinal: No: Nausea, Abdominal Pain, Diarrhea, Constipation Musculoskeletal: leg pain, foot pain Neurological: Weakness, Numbness Objective Exam Last Set of Vital Signs Vital Signs Date Time Temp Pulse Resp B/P (MAP) Pulse Ox O2 Delivery O2 Flow Rate FiO2 04/28/17 10:09 93 95 21 04/28/17 09:43 Room Air 04/28/17 08:30 99.5 20 155/70 (98) Capillary Refill : Less Than 3 Seconds I&O Intake and Output 04/28/17 00:00 Intake Total 2687 ml Output Total 1075 ml Balance 1612 ml Intake Oral 1737 ml IV Total 950 ml Output Urine Total 1075 ml # Voids 2 # Bowel Movements 2 General: Alert, Cooperative, No Acute Distress HEENT: Mucous Memb Moist/[place] Lungs: Clear to Auscultation, Normal Air Movement Heart: Regular Rate, No Murmurs Extremities: Other (+swelling, erythema, dried skin, no weeping) Results/Procedures Lab Microbiology 04/25/17 Blood Culture - Preliminary, Resulted No growth Radiology CT abdomen/pelvis 04/25/17: IMPRESSION: There is splenomegaly. There are bilateral nonobstructing renal stones present. No acute abnormality is seen with no change from 11/20/2016. CXR 04/25/17: no acute disease Assessment/Plan Assessment/Plan (1) Nausea and vomiting Status: Resolved Qualifiers: Qualified Codes: R11.2 - Nausea with vomiting, unspecified (2) Cellulitis of lower extremity Status: Acute Assessment & Plan: - Continue Rocephin while in hospital Qualifiers: Qualified Codes: L03.119 - Cellulitis of unspecified part of limb (3) Acute renal failure Status: Acute Assessment & Plan: - Trending down, likely 2/2 dehydration Qualifiers: Qualified Codes: N17.9 - Acute kidney failure, unspecified (4) Hyperkalemia Status: Resolved (5) Pancytopenia Status: Chronic Permanent Comment: Bone marrow biopsy 04/2016 with essentially absent iron stores but otherwise unremarkable. EGD/colonoscopy 04/2016 unrevealing, capsule endoscopy 05/2016 unrevealing, EGD 05/2016 with gastric erosions and petechiae. Last Edited By: Jes Castro on Apr 26, 2017 20:22 (6) Diabetes mellitus type 2 with complications Status: Chronic Qualifiers: Qualified Codes: E11.8 - Type 2 diabetes mellitus with unspecified complications (7) Hypothyroidism Status: Chronic (8) Hepatocellular carcinoma Status: Chronic Permanent Comment: s/p CT guided microwave ablation and chemoembolization with LC beads coated with doxorubicin 10/17/2016 at [facility]. Last Edited By: Jes Castro on Apr 26, 2017 20:12 (9) Cryptogenic cirrhosis Status: Chronic (10) Chronic pain Status: Acute Assessment & Plan: - Increased Fentanyl patch and added Lyrica (11) Splenomegaly Status: Chronic (12) DVT prophylaxis Status: Acute (13) Advance care planning Status: Acute Assessment & Plan: Patient and family has decided to start Hospice - DNR in hospital has been signed - Hospice referral placed Clinical Quality Measures DVT/VTE Risk/Contraindication: Risk Factor Score Per Nursin RFS Level Per Nursing on Admit: 4+=Very High MIRANDA SALAS MD Apr 28, 2017 11:08
--- NOTE | 2017-04-28 11:14 | Occ Therapy Progress Note ---
Therapy Progress Note Attempted OT at 1043. Pt in bed with family present. Pt and family state pt does not want any further therapy. They state he will be discharging on hospice and does not want treatment at this time. Pt confirms. Will discontinue OT services at this time per pt request. RN was notified. 1, visit- DC OT GAURI MORGAN OT Apr 28, 2017 11:14
[2017-04-28] MEDS: PREGABALIN 75 MG (LYRICA) CAP PO SCH (11:44)
[2017-04-28 12:00] VITALS: BP 148/67
[2017-04-28] MEDS ORDERED: fentaNYL PATCH 50 MCG (DURAGESIC) TOP SCH (14:00)
[2017-04-28] MEDS ORDERED: FENTANYL PATCH REMOVAL TP SCH (14:00)
[2017-04-28] MEDS ORDERED: ACETAMINOPHEN 325 MG TABLET/CAPLET (TYLENOL) PO PRN ×2 (16:00→16:45)
[2017-04-28] MEDS ORDERED: ACETAMINOPHEN 325 MG TABLET/CAPLET (TYLENOL) ONE (16:02)
[2017-04-28 16:36] VITALS: BP 150/63
[2017-04-28] MEDS: cefTRIAXone 1,000 MG/NS 50 ML IVPB IV SCH ×2 (17:59)
[2017-04-28 20:34] VITALS: BP 149/69
[2017-04-29] VITALS: BP 143/66
[2017-04-29] MEDS: METOCLOPRAMIDE INJ 10 MG/2 ML (REGLAN) IV PRN (01:51)
[2017-04-29] MEDS: ONDANSETRON 4 MG/2 ML (SDV) Z0FRAN IV PRN ×2 (01:51→18:29)
[2017-04-29 04:00] VITALS: BP 151/70
[2017-04-29] MEDS ORDERED: fentaNYL (OMNICELL DRIP KIT ONLY) 250 MCG/5 ML AMP ONE (04:00)
[2017-04-29] MEDS ORDERED: NS (IVPB) 100 ML ONE (04:01)
[2017-04-29 08:13] VITALS: BP 132/60
[2017-04-29] MEDS: NS IV 1000 ML 1,000 ML IV SCH (09:44)
[2017-04-29] MEDS: PREGABALIN 75 MG (LYRICA) CAP PO SCH (09:45)
[2017-04-29] MEDS: FERROUS SULF 325 MG (IRON) TAB PO SCH ×2 (09:45→20:07)
[2017-04-29] MEDS: SENNA W/DOCUSATE (SENOKOT S) TABLET PO SCH (09:45)
[2017-04-29] MEDS: LEVOTHYROXINE 88 MCG (LEVOTHORID) TAB PO SCH (09:45)
[2017-04-29 12:00] VITALS: BP 154/71
[2017-04-29 16:00] VITALS: BP 131/62
[2017-04-29] MEDS: cefTRIAXone 1,000 MG/NS 50 ML IVPB IV SCH ×2 (17:00)
--- NOTE | 2017-04-29 19:18 | Progress Note (SOAP) ---
Subjective Subjective/Events-last exam Pain is improved but still having pain. Took shower and feeling better. Visit with ALS layout artist today. Answered all family questions and discussed plan of care with patient. Patient would like to go home with hospice. Review of Systems Date Seen by Provider: Apr 29, 2017 Time Seen by Provider: 14:10 Pulmonary: No Dyspnea, No Cough Cardiovascular: No: Chest Pain, Palpitations Gastrointestinal: Abdominal Pain, No: Nausea, Vomiting Objective Exam Last Set of Vital Signs Vital Signs Date Time Temp Pulse Resp B/P (MAP) Pulse Ox O2 Delivery O2 Flow Rate FiO2 04/29/17 18:08 16 04/29/17 16:00 97.7 81 131/62 (85) 99 Room Air 04/28/17 10:09 21 Capillary Refill : Less Than 3 Seconds I&O Intake and Output 04/29/17 00:00 Intake Total 1490 ml Output Total 950 ml Balance 540 ml Intake Oral 440 ml IV Total 1050 ml Output Urine Total 950 ml # Bowel Movements 3 General: Alert, Oriented X3, No Acute Distress HEENT: Mucous Memb Moist/[place] Lungs: Clear to Auscultation, Normal Air Movement Heart: Regular Rate, No Murmurs Abdomen: Normal Bowel Sounds, Soft, No Tenderness Extremities: Other (+ erythema and pitting edema, 8/10 pain in LE bilaterally) Results/Procedures Lab Microbiology 04/25/17 Blood Culture - Preliminary, Resulted No growth Radiology CT abdomen/pelvis 04/25/17: IMPRESSION: There is splenomegaly. There are bilateral nonobstructing renal stones present. No acute abnormality is seen with no change from 11/20/2016. CXR 04/25/17: no acute disease Assessment/Plan Assessment/Plan (1) Nausea and vomiting Status: Resolved Qualifiers: Qualified Codes: R11.2 - Nausea with vomiting, unspecified (2) Cellulitis of lower extremity Status: Acute Assessment & Plan: - D/c antibiotics Qualifiers: Qualified Codes: L03.119 - Cellulitis of unspecified part of limb (3) Acute renal failure Status: Acute Assessment & Plan: - Trending down, likely 2/2 dehydration Qualifiers: Qualified Codes: N17.9 - Acute kidney failure, unspecified (4) Hyperkalemia Status: Resolved (5) Pancytopenia Status: Chronic Permanent Comment: Bone marrow biopsy 04/2016 with essentially absent iron stores but otherwise unremarkable. EGD/colonoscopy 04/2016 unrevealing, capsule endoscopy 05/2016 unrevealing, EGD 05/2016 with gastric erosions and petechiae. Last Edited By: Jes Castro on Apr 26, 2017 20:22 (6) Diabetes mellitus type 2 with complications Status: Chronic Qualifiers: Qualified Codes: E11.8 - Type 2 diabetes mellitus with unspecified complications (7) Hypothyroidism Status: Chronic (8) Hepatocellular carcinoma Status: Chronic Permanent Comment: s/p CT guided microwave ablation and chemoembolization with LC beads coated with doxorubicin 10/17/2016 at [facility]. Last Edited By: Jes Castro on Apr 26, 2017 20:12 (9) Cryptogenic cirrhosis Status: Chronic (10) Chronic pain Status: Acute (11) Splenomegaly Status: Chronic (12) DVT prophylaxis Status: Acute (13) Advance care planning Status: Acute Assessment & Plan: Patient and family has decided to start Hospice - DNR in hospital has been signed - Plan to go home with hospice tomorrow - Family meeting with ALS layout artist Clinical Quality Measures DVT/VTE Risk/Contraindication: Risk Factor Score Per Nursin RFS Level Per Nursing on Admit: 4+=Very High MIRANDA SALAS MD Apr 29, 2017 19:18
[2017-04-29 19:40] VITALS: BP 148/67
[2017-04-30] VITALS: BP 136/65
[2017-04-30 04:00] VITALS: BP 130/64
[2017-04-30] MEDS: FERROUS SULF 325 MG (IRON) TAB PO SCH (07:58)
[2017-04-30 08:00] VITALS: BP 147/66
[2017-04-30] MEDS: SENNA W/DOCUSATE (SENOKOT S) TABLET PO SCH (08:15)
[2017-04-30] MEDS: LEVOTHYROXINE 88 MCG (LEVOTHORID) TAB PO SCH (08:15)
[2017-04-30] MEDS: PREGABALIN 75 MG (LYRICA) CAP PO SCH (08:15)
[2017-04-30] MEDS: ONDANSETRON 4 MG/2 ML (SDV) Z0FRAN IV PRN (08:15)
--- NOTE | 2017-04-30 10:29 | Discharge Summary ---
Diagnosis/Chief Complaint Date of Admission Apr 25, 2017 at 18:15 Date of Discharge Chief Complaint/HPI Chief Complaint/HPI provides most history, patient is deaf- 62 yo male presented to ER with pain in back and legs with weeping wounds on his legs, left greater than right. He has end stage liver disease and liver cancer. He was seeing wound care for his legs in the past, but it didn't seem to be improving much and was causing him a lot of pain- dressings would peel off his skin, so he didn't want to go to wound care anymore. He has had nausea and vomiting for about 5 days and has had blood in stools since February and has also had a small amount of blood in his vomit just prior to his arriving at the hospital which was observed apparently by EMS or ER, not by . Discharge Summary-Simple/Stand Consultations Discharge Physical Examination Allergies: Coded Allergies: No Known Drug Allergies (Unverified , 05/01/16) Vitals & I&Os Vital Sign - Last 12Hours Date Time Temp Pulse Resp B/P (MAP) Pulse Ox O2 Delivery O2 Flow Rate FiO2 04/30/17 08:00 97.2 81 20 147/66 (93) 95 Nasal Cannula 2.00 04/28/17 10:09 21 Intake and Output 04/29/17 23:59 Intake Total 1930 ml Output Total 840 ml Balance 1090 ml Hospital Course See final discharge diagnosis. Radiology Reviewed CT abdomen/pelvis 04/25/17: IMPRESSION: There is splenomegaly. There are bilateral nonobstructing renal stones present. No acute abnormality is seen with no change from 11/20/2016. CXR 04/25/17: no acute disease Discharge Instructions to patient/family Please see electronic discharge instructions given to patient. Discharge Medications Reviewed and agree with Discharge Medication list on patient's Discharge Instruction sheet Clinical Quality Measures DVT/VTE Risk/Contraindication: Risk Factor Score Per Nursin RFS Level Per Nursing on Admit: 4+=Very High MIRANDA SALAS MD Apr 30, 2017 10:29
[2017-04-30] MEDS ORDERED: FENT1PAT9 TOP (10:34)
[2017-04-30] MEDS ORDERED: SENN-20 PO (10:34)
[2017-04-30] MEDS ORDERED: Oxycodone Hcl PO (10:34)
--- NOTE | 2017-04-30 10:44 | Discharge Instructions ---
Discharge [facility] Discharge Medications New, Converted or Re-Newed RX: RX on Chart (Bowel medications are at [facility] pharmacy) New Medications: Fentanyl (Fentanyl Patch 50 MCG) 1 Each Patch.td72 50 MCG TOP Q72H, #10 PATCH Sennosides/Docusate Sodium (Senna-Time S Tablet) 1 Each Tablet 1 EA PO DAILY, #30 TAB [Oxycodone Hcl] () 5 MG TAB 5 MG PO Q2HR PRN for PAIN-SEVERE, #60 TAB Continued Medications: Ferrous Sulfate (Ferrous Sulfate) 325 Mg Tablet 325 MG PO BID, TAB Levothyroxine Sodium (Levothyroxine Sodium) 88 Mcg Tablet 88 MCG PO DAILY LAST FILLED 02/03/17 #30 Pregabalin (Lyrica) 150 Mg Capsule 150 MG PO TID LAST FILLED 02/25/17 #84 Discontinued Medications: Glimepiride (Glimepiride) 1 Mg Tablet 1 MG PO BID LAST FILLED 02/25/17 #60 Lisinopril (Lisinopril) 5 Mg Tablet 5 MG PO BID Metformin HCl (Metformin HCl ER) 500 Mg Tab.er.24h 1000 MG PO BID TAKES 2 (500 MG) TABLETS Patient Instructions Goal/Follow Up Appt: [facility] will be by home when patient gets discharged Activity & Diet Discharge Diet: No Restrictions Activity as Tolerated: Yes Copy Copies To 1: Alla FARMER HOLLY R MD Apr 30, 2017 10:44
[2017-04-30] MEDS ORDERED: FENTANYL PATCH REMOVAL TP SCH (14:14)
[2017-05-01] MEDS ORDERED: FENTANYL PATCH REMOVAL TP SCH (13:59)
== END 2017-04-30 12:15 | disposition hospice, home (50) | DRG 683 ==
LOC: EDUNIT# 15:56 → ER 15:58 → 4TH 18:15 → UNDOADMIN 18:15
PROVIDERS: ADMIT Family Medicine; ATTEND Family Medicine
DX: N17.9 Acute kidney failure, unspecified (principal); L03.116 Cellulitis of left lower limb; K74.69 Other cirrhosis of liver; C22.0 Liver cell carcinoma; D61.818 Other pancytopenia; K76.6 Portal hypertension; Q40.3 Congenital malformation of stomach, unspecified; Z51.5 Encounter for palliative care; Z66 Do not resuscitate; K92.2 Gastrointestinal hemorrhage, unspecified; K29.70 Gastritis, unspecified, without bleeding; R16.1 Splenomegaly, not elsewhere classified; E86.0 Dehydration; I12.9 Hypertensive chronic kidney disease with stage 1 through stage 4 chronic kidney disease, or unspecified chronic kidney disease; E11.8 Type 2 diabetes mellitus with unspecified complications; K21.9 Gastro-esophageal reflux disease without esophagitis; E87.5 Hyperkalemia; E03.9 Hypothyroidism, unspecified; H91.90 Unspecified hearing loss, unspecified ear; M54.9 Dorsalgia, unspecified; N18.9 Chronic kidney disease, unspecified; R11.2 Nausea with vomiting, unspecified; Z79.84 Long term (current) use of oral hypoglycemic drugs
CPT/HCPCS: 36415; 71045; 74176; 80053; 81000; 83605; 83735; 85025; 85027; 85610; 85730; 87040; 93005; 94760; 96361; 96365; 96375